=== PATIENT | female | born 1955 | race Caucasian/White ===

== ENCOUNTER 2017-03-31 02:41 | Emergency (ER) | payer BC ==
[2017-03-31] MEDS ORDERED: methylPREDNISolone Sodium Succinate 125 MG/2 ML SDV IVPUSH ONE (02:53)
--- NOTE | 2017-03-31 03:03 | EDM.PDOC ---
ED HPI GENERAL MEDICAL PROBLEM - General Chief Complaint: General Stated Complaint: swollen tongue Time Seen by Provider: 03/31/17 02:50 Source of Information: Reports: Patient History Limitations: Reports: No Limitations - History of Present Illness INITIAL COMMENTS - FREE TEXT/NARRATIVE: Patient presents today with itching, hives and a thick tongue. States started to note that her hands were very itchy earlier and started to break out in hives. About an hour ago, she woke up with a "thick tongue" and a hoarse voice. She denies any trouble swallowing. No trouble breathing. Took Benadryl at that time but symptoms seemed to be worsening. Has not experienced this before. Is finishing out the last day of a 10 day course of PCN. No different food intake. Onset: Gradual Duration: Hour(s): Location: Reports: Generalized Severity: Moderate Treatments MANAGER AVIATION: Reports: Other Medication(s) Other Treatments MANAGER AVIATION: Benadryl 50 mg an hour prior to presentation - Related Data Allergies Allergy/AdvReac Type Severity Reaction Status Date / Time No Known Allergies Allergy Verified 03/31/17 03:01 Home Meds: Home Meds Amoxicillin [Amoxil] 1 tab PO BID 03/31/17 [History] Past Medical History - Past Health History Medical/Surgical History: Denies Medical/Surgical History Social & Family History - Tobacco Use Smoking Status *Q: Current Every Day Smoker Years of Tobacco use: 40 - Alcohol Use Days Per Week of Alcohol Use: 0 ED ROS GENERAL - Review of Systems Review Of Systems: See Below Constitutional: Denies: Fever, Chills, Malaise, Weakness HEENT: Reports: Other (hoarseness; tongue thick/swollen) Respiratory: Denies: Shortness of Breath, Wheezing, Cough Cardiovascular: Denies: Chest Pain, Edema, Lightheadedness Endocrine: Denies: Fatigue GI/Abdominal: Denies: Abdominal Pain, Black Stool, Bloody Stool, Nausea, Vomiting : Reports: No Symptoms Musculoskeletal: Reports: No Symptoms Skin: Reports: Urticaria (hives scattered throughout) Neurological: Reports: No Symptoms ED EXAM, GENERAL - Physical Exam Exam: See Below Exam Limited By: No Limitations General Appearance: Alert, WD/WN, Mild Distress Ears: Normal External Exam, Normal TMs Nose: Normal Inspection, Normal Mucosa, No Blood Throat/Mouth: No Airway Compromise. No: Other (tongue mildly thickened) Head: Normocephalic Neck: Normal Inspection, Supple, Non-Tender Respiratory/Chest: No Respiratory Distress, Lungs Clear, Normal Breath Sounds Cardiovascular: Regular Rate, Rhythm Neurological: Alert, Oriented Psychiatric: Normal Affect, Normal Mood Skin Exam: Rash (hives noted on arms, chest and back) Course - Vital Signs Last Recorded V/S: Last Vital Signs Temp 97.2 F 03/31/17 02:45 Pulse 80 03/31/17 02:45 Resp 16 03/31/17 02:45 BP 152/85 H 03/31/17 02:45 Pulse Ox 95 03/31/17 02:45 - Orders/Labs/Meds Meds: Medications Discontinued Medications Generic Name Dose Route Start Last Admin Trade Name Freq PRN Reason Stop Dose Admin Methylprednisolone Sodium Succinate 125 mg 03/31/17 02:53 03/31/17 02:58 Solu-Medrol IVPUSH 03/31/17 02:54 125 mg NOW ONE Administration - Re-Assessments/Exams Free Text/Narrative Re-Assessment/Exam: 03/31/17 03:11 Patient feels like symptoms are improving. Can vocalize better now. Less itching. Departure - Departure Time of Disposition: 03:12 Disposition: Home, Self-Care 01 Condition: Fair Clinical Impression: Hives Angioedema Qualifiers: Encounter type: initial encounter Qualified Code(s): T78.3XXA - Angioneurotic edema, initial encounter - Discharge Information Forms: ED Department Discharge Additional Instructions: 1. Rest 2. Push fluids 3. Benadryl 50 mg every 4 hours for 24 hour total 4. Prednisone 20 mg- 2 tabs daily for 4 more days 5. Stop Amoxicillin 6. Return or call if any questions or concerns.
== END 2017-03-31 04:10 | disposition home or self-care (01) ==
LOC: CC.ED 02:41
DX: T78.3XXA Angioneurotic edema, initial encounter (principal); L50.9 Urticaria, unspecified; F17.210 Nicotine dependence, cigarettes, uncomplicated
CPT/HCPCS: 96374; 99283; J2930

== ENCOUNTER 2019-11-11 07:00 | Emergency (ER) | payer BC ==
--- NOTE | 2019-11-11 07:28 | EDM.PDOC ---
ED HPI GENERAL MEDICAL PROBLEM - General Chief Complaint: Abdominal Pain Stated Complaint: ?ULCER/PAIN ALL NIGHT Time Seen by Provider: 11/11/19 07:23 Source of Information: Reports: Patient History Limitations: Reports: No Limitations - History of Present Illness INITIAL COMMENTS - FREE TEXT/NARRATIVE: Started with midepigastric pain on Thursday, and has progressively become worse since. States that the pain kept her awake all night. Is supposed to take Nexium daily but doesn't always do it. Has history of ulcer in the past that has been associated with the meds that she is taking for her cancer. She states she has had some nausea. No vomiting or diarrhea. States that the pain will go all the way into her back. No fever with it. Describes the pain is in the area of the right lower lung base and she states that it is sharp and stabbing. I can't go through another night like last night again" She did have her neulastin shot earlier this week. Has never had a problem with it previously. Is supposed to be taking claritin but she forgot to take it. Has not been taking her gabapentin at this time as she "just hasn't thought about it." Onset: Gradual Location: Reports: Chest, Abdomen Quality: Reports: Burning Treatments CLEANING MATRON: Reports: Other Medication(s) (oxycodone, fentanyl, advil, tylenol) Right Upper Abdomen Pain Score (Numeric/FACES): 10 - Related Data Allergies Allergy/AdvReac Type Severity Reaction Status Date / Time amoxicillin Allergy Intermediate Swollen Verified 11/11/19 07:12 Tongue Home Meds: Home Meds Albuterol [Ventolin HFA] 2 puff INH BID PRN 08/06/19 [History] Gabapentin [Neurontin] 300 mg PO TID 08/06/19 [History] fentaNYL [Duragesic] 125 mcg TOP ASDIRECTED 11/09/19 [History] oxyCODONE HCl/Acetaminophen [Oxycodone-Acetaminophen 5-325] 1 tab PO Q4H PRN 11/09/19 [History] Acetaminophen [Tylenol Extra Strength] 500 mg PO Q6HR PRN 11/11/19 [History] Ibuprofen 200 mg PO Q6HR 11/11/19 [History] Past Medical History - Past Health History Medical/Surgical History: Denies Medical/Surgical History Oncologic (Cancer) History: Reports: Lung - Past Surgical History HEENT Surgical History: Reports: Other (See Below) Other HEENT Surgeries/Procedures: had surgery on her eyelids Female Surgical History: Reports: Hysterectomy Social & Family History - Tobacco Use Smoking Status *Q: Former Smoker - Living Situation & Occupation Living situation: Reports: , with Significant Other Occupation: Retired ED ROS GENERAL - Review of Systems Review Of Systems: See Below Constitutional: Denies: Fever, Chills, Weakness Respiratory: Reports: No Symptoms Cardiovascular: Reports: No Symptoms GI/Abdominal: Reports: Abdominal Pain. Denies: Black Stool, Bloody Stool, Nausea, Vomiting : Reports: No Symptoms Musculoskeletal: Reports: No Symptoms Skin: Reports: No Symptoms Neurological: Reports: No Symptoms ED EXAM, GI/ABD - Physical Exam Exam: See Below Exam Limited By: No Limitations General Appearance: Alert, WD/WN, Moderate Distress Ears: Normal External Exam, Normal Canal Nose: Normal Inspection Throat/Mouth: Normal Inspection, Normal Oropharynx Head: Atraumatic, Normocephalic Neck: Normal Inspection, Supple, Non-Tender, Full Range of Motion Respiratory/Chest: No Respiratory Distress, Lungs Clear, Normal Breath Sounds Cardiovascular: Regular Rate, Rhythm, No Edema GI/Abdominal Exam: Normal Bowel Sounds, Soft, Tender (midepigastric area with palpation.) Extremities: Normal Capillary Refill Neurological: Alert, Oriented Skin Exam: Warm, Dry, Intact Course - Vital Signs Last Recorded V/S: Last Vital Signs Temp 98.2 F 11/11/19 07:25 Pulse 103 H 11/11/19 07:25 Resp 16 11/11/19 07:25 BP 134/78 11/11/19 07:25 Pulse Ox 97 11/11/19 07:25 - Orders/Labs/Meds Labs: Laboratory Tests 11/11/19 11/11/19 11/11/19 Range/Units 07:28 07:45 09:45 WBC 51.4 H* (5.0-10.0) 10^3/uL RBC 3.38 L (4.00-5.50) 10^6/uL Hgb 11.4 L (12.0-16.0) g/dL Hct 34.5 L (37.0-47.0) % MCV 102.1 H (82.0-94.0) fL MCH 33.7 H (27.0-32.0) pg MCHC 33.0 (33.0-38.0) g/dL RDW Coeff of Lokes[place] 13.9 (11.0-15.0) % Plt Count 239 (150-400) 10^3/uL Add Manual Diff Yes Neutrophils % (Manual) 85 (35-85) % Band Neutrophils % 13 H (0-5) % Monocytes % (Manual) 1 L (2-12) % Eosinophils % (Manual) 1 (0-5) % Absolute Neutrophils 50.37 H (1.80-7.00) 10^3/uL Monocytes # (Manual) 0.51 (0.00-0.80) 10^3/uL Eosinophils # (Manual) 0.51 H (0.00-0.45) 10^3/uL Sodium 140 (136-145) mEq/L Potassium 3.5 (3.5-5.0) mEq/L Chloride 101 (98-106) mEq/L Carbon Dioxide 29 (21-32) mmol/L BUN 12 (7-18) mg/dL Creatinine 0.8 (0.6-1.0) mg/dL Est Cr Clr Drug Dosing 62.96 mL/min Estimated GFR (MDRD) > 60 (>=60) mL/min Glucose 110 H D (75-99) mg/dL Calcium 9.2 (8.4-10.1) mg/dL Urine Color Yellow (YELLOW) Urine Appearance Clear (CLEAR) Urine pH 8.5 H (4.5-8.0) Ur Specific [place] 1.020 (1.003-1.020) Urine Protein Negative (NEGATIVE) mg/dL Urine Glucose (UA) Negative (NEGATIVE) mg/dL Urine Ketones Trace H (NEGATIVE) mg/dL Urine Occult Blood Negative (NEGATIVE) Urine Nitrite Negative (NEGATIVE) Urine Bilirubin Negative (NEGATIVE) Urine Urobilinogen 0.2 (0.2-1.0) EU/dL Ur Leukocyte Esterase Trace H (NEGATIVE) Urine RBC Not seen (0-5) /HPF Urine WBC 0-5 (0-5) /HPF Ur Epithelial Cells Few H (NOT SEEN) /HPF Urine Mucus Occasional H (NOT SEEN) /HPF Meds: Medications Discontinued Medications Generic Name Dose Route Start Last Admin Trade Name Freq PRN Reason Stop Dose Admin Acetaminophen 650 mg 11/11/19 13:05 11/11/19 13:46 Tylenol PO 11/11/19 13:06 650 mg NOW ONE Administration Al Hydroxide/Mg Hydroxide 30 0 ml 11/11/19 07:27 11/11/19 07:33 ml/ Lidocaine HCl 15 ml PO 11/11/19 07:28 45 ml ONETIME ONE Administration Fentanyl 50 mcg 11/11/19 09:43 11/11/19 09:49 Sublimaze IVPUSH 11/11/19 09:44 50 mcg ONETIME ONE Administration Fentanyl 50 mcg 11/11/19 10:57 11/11/19 11:19 Sublimaze IVPUSH 11/11/19 10:58 50 mcg ONETIME ONE Administration Sodium Chloride 1,000 mls @ 999 mls/hr 11/11/19 10:10 11/11/19 10:19 Normal Saline IV 11/11/19 11:10 999 mls/hr .BOLUS ONE Administration Iopamidol 100 ml 11/11/19 13:16 11/11/19 13:52 Isovue-370 (76%) IVPUSH 11/11/19 13:17 100 ml ONETIME ONE Administration Ketorolac Tromethamine 30 mg 11/11/19 12:51 11/11/19 12:56 Toradol IVPUSH 11/11/19 12:52 30 mg ONETIME ONE Administration Loratadine 10 mg 11/11/19 13:07 11/11/19 13:46 Claritin PO 11/11/19 13:08 10 mg ONETIME ONE Administration Morphine Sulfate 4 mg 11/11/19 08:38 11/11/19 08:41 Morphine IVPUSH 11/11/19 08:39 4 mg ONETIME ONE Administration Ondansetron HCl 8 mg 11/11/19 08:45 11/11/19 08:47 Zofran IVPUSH 8 mg Q6H PRN Administration Nausea Pantoprazole Sodium 40 mg 11/11/19 07:30 11/11/19 07:42 Protonix Iv IVPUSH 40 mg Q24H JARROD Administration Sucralfate 1 gm 11/11/19 07:28 11/11/19 07:43 Carafate PO 11/11/19 07:29 1 gm ONETIME ONE Administration - Re-Assessments/Exams Free Text/Narrative Re-Assessment/Exam: 11/11/19 1245 Pt has had no relief from the extra pain meds that have been given to her. She still has significant pain. I did talk to Dr. Fowler and he suggested that I do a CT for PE rule out. will try dose of IV toradol as she feels that she has had some relief from that in the past. 11/11/[address]. Fowler and that pain continues to not be controlled and CT is negative for PE. Discussed that the CT does show progression of the cancer. tumor and effect is on the left rib and he feels that the pain is referred to the right and may be the cause of the pain. 11/11/19 1430 Discussed the results with Yasmin and . Will transfer to [facility] for pain control and further workup. PT voices understanding. Will wait until notified if room available. Discussed risk of not transferring to include unable to control pain and pain getting worse. risk of transfer by private car would include uncontrolled pain enroute, and chance of MVC. benefit of staying would be close to home and benefit of transfer would include specialist and hopefully pain control and symptom relief. Pt and agree to transfer by private car. 11/11/19 16:30transfer to [facility] room 591 per private car with with Dr. Franklin and Janeth accepting physician. 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, Uncontrolled pain - Discharge Information *PRESCRIPTION DRUG MONITORING PROGRAM REVIEWED*: Not Applicable *COPY OF PRESCRIPTION DRUG MONITORING REPORT IN PATIENT MARY ALICE: Not Applicable Referrals: Panfilo Morgan MD [Primary Care Provider] - Forms: ED Department Discharge Additional Instructions: Go to [facility] for admission - Problem List & Annotations (1) Lung cancer metastatic to bone SNOMED Code(s): 79685079 Code(s): C34.90 - MALIGNANT NEOPLASM OF UNSP PART OF UNSP BRONCHUS OR LUNG; C79.51 - SECONDARY MALIGNANT NEOPLASM OF BONE Status: Acute Priority: High (2) Uncontrolled pain SNOMED Code(s): 41040600427953860 Code(s): R52 - PAIN, UNSPECIFIED Status: Acute Priority: High - Problem List Review Problem List Initiated/Reviewed/Updated: Yes
[2019-11-11] MEDS: Alum Hydrox/Mag Hydrox/Simeth 30 ML, Lidocaine 2% 15 ML PO ONE ×2 (07:33)
[2019-11-11] MEDS: Pantoprazole 40 MG Vial IVPUSH SCH (07:42)
[2019-11-11] MEDS: Sucralfate 1 GM Tab PO ONE (07:43)
[2019-11-11 07:52] LABS: CHLORIDE,CL 101 mEq/L (98-106); SODIUM,NA 140 mEq/L (136-145)
[2019-11-11] MEDS: Morphine 4 MG/ML VIAL IVPUSH ONE (08:41)
[2019-11-11] MEDS: Ondansetron 4 MG/2 ML SDV IVPUSH PRN (08:47)
[2019-11-11] MEDS: fentaNYL 100 MCG/2 ML SDV IVPUSH ONE ×2 (09:49→11:19)
[2019-11-11] MEDS: Sodium Chloride 0.9% 1,000 ML IV ONE (10:19)
[2019-11-11] MEDS: Ketorolac 30 MG/ML SDV IVPUSH ONE (12:56)
[2019-11-11] MEDS: Acetaminophen 325 MG Tab PO ONE (13:46)
[2019-11-11] MEDS: Loratadine 10 MG Tab PO ONE (13:46)
[2019-11-11] MEDS: Iopamidol 755 Mg/ML 100 ML Bottle IVPUSH ONE (13:52)
== END 2019-11-11 15:30 ==
LOC: CC.ED 07:00
DX: C34.11 Malignant neoplasm of upper lobe, right bronchus or lung (principal); C79.51 Secondary malignant neoplasm of bone; Z88.1 Allergy status to other antibiotic agents; Z79.899 Other long term (current) drug therapy; Z87.891 Personal history of nicotine dependence
CPT/HCPCS: 36415; 71046; 71275; 80048; 81001; 85025; 96374; 96375; 96376; 99284-25; A9270-GY; C9113; J1885; J2270; J2405; J3010; J7030; Q9967

== ENCOUNTER 2020-08-13 10:03 | Emergency (ER) | payer BC ==
[2020-08-13] MEDS ORDERED: Ketorolac 30 MG/ML SDV IVPUSH ONE (10:43)
--- NOTE | 2020-08-13 10:56 | EDM.PDOC ---
ED HPI GENERAL MEDICAL PROBLEM - General Chief Complaint: Flank Pain Stated Complaint: FLANK PAIN/RT SHLDR PAIN Time Seen by Provider: 08/13/20 10:10 Source of Information: Reports: Patient History Limitations: Reports: No Limitations - History of Present Illness INITIAL COMMENTS - FREE TEXT/NARRATIVE: This patient is a 64 year old female that presents to the ER. Patient reports history of small cell lung cancer, metastatic to liver, rib x1. Patient reports she had radiation to the rib and it resolved. She reports starting chemo Thursday for the 1st time. She reports that she will get chemo every 3 weeks. She reports starting new cancer drugs. Patient reports that her cancer doctor manages her pain medications. She reports taking Oxycodone. She reports she can take 2 pil ls, but only took 1 last night because she gets loopy if she takes more. The patient reports that she has been having pain chronically to the right flank, that she says is "referred" to the right shoulder. Patient reports that this pain is her typical chronic cancer pain. She reports that she has pain in the liver and this feels just like that. She reports the reason why she came in today is because the pain is worse and she feels like the pain medication is not helping as much as it should. The patient denies any injuries or falls. She denies headache, dizziness, new nausea, vomiting, diarrhea, fever, cough, congestion, drainage, shortness of breath, urinary changes. She reports constipation. She reports right flank lower right back pain with referred right shoulder pain worse since last night. Onset Date: 08/12/20 Duration: Chronic, Getting Worse Severity: Moderate Improves with: Reports: None Worsens with: Reports: None Associated Symptoms: Reports: Loss of Appetite. 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 (see below) (Fentanyl, Oxycodone) Right Flank Pain Score (Numeric/FACES): 9 - Related Data Allergies Allergy/AdvReac Type Severity Reaction Status Date / Time amoxicillin Allergy Intermediate Swollen Verified 08/13/20 10:19 Tongue Home Meds: Home Meds fentaNYL [Duragesic] 175 mcg TOP ASDIRECTED 11/09/19 [History] Acetaminophen [Tylenol Extra Strength] 500 mg PO Q6HR PRN 11/11/19 [History] Ibuprofen 200 mg PO Q6HR 11/11/19 [History] Ondansetron [Zofran] 4 mg PO Q6H 08/08/20 [History] Pregabalin [Lyrica] 50 mg PO BID 08/08/20 [History] oxyCODONE HCl/Acetaminophen [Oxycodone-Acetaminophen 10-300] 1 tab PO Q4HR PRN 08/08/20 [History] predniSONE [Prednisone] 1 tab PO DAILY 08/08/20 [History] Past Medical History - Past Health History Medical/Surgical History: Denies Medical/Surgical History HEENT History: Reports: None Respiratory History: Reports: Other (See Below) Other Respiratory History: Lung cancer Oncologic (Cancer) History: Reports: Lung - Past Surgical History HEENT Surgical History: Reports: Other (See Below) Other HEENT Surgeries/Procedures: had surgery on her eyelids Female Surgical History: Reports: Hysterectomy Social & Family History - Family History Family Medical History: No Pertinent Family History - Caffeine Use Caffeine Use: Reports: None - Living Situation & Occupation Living situation: Reports: , with Significant Other Occupation: Retired ED ROS GENERAL - Review of Systems Review Of Systems: See Below Constitutional: Reports: No Symptoms HEENT: Reports: No Symptoms Respiratory: Reports: No Symptoms Cardiovascular: Reports: No Symptoms Endocrine: Reports: No Symptoms GI/Abdominal: Reports: Abdominal Pain (right latera upper to flank), Constipation, Other (Right flank, right lateral upper.). Denies: Diarrhea, Nausea, Vomiting : Reports: Flank Pain (right). Denies: Discharge, Dysuria, Frequency, Hematuria, Incontinence, Urgency, Urinary Retention Musculoskeletal: Reports: Shoulder Pain (right) Skin: Reports: No Symptoms Neurological: Reports: No Symptoms Psychiatric: Reports: No Symptoms Hematologic/Lymphatic: Reports: No Symptoms Immunologic: Reports: No Symptoms ED EXAM, GI/ABD - Physical Exam Exam: See Below Exam Limited By: No Limitations General Appearance: Alert, WD/WN, No Apparent Distress Eyes: Bilateral: Normal Appearance Ears: Normal External Exam, Normal Canal, Hearing Grossly Normal, Normal TMs Nose: Normal Inspection, Normal Mucosa, No Blood Throat/Mouth: Normal Inspection, Normal Lips, Normal Teeth, Normal Gums, Normal Oropharynx, Normal Voice, No Airway Compromise Head: Atraumatic, Normocephalic Neck: Normal Inspection, Supple, Non-Tender, Full Range of Motion Respiratory/Chest: No Respiratory Distress, Lungs Clear, Normal Breath Sounds, No Accessory Muscle Use, Chest Non-Tender Cardiovascular: Normal Peripheral Pulses, Regular Rate, Rhythm, No Edema, No Gallop, No JVD, No Murmur, No Rub GI/Abdominal Exam: Normal Bowel Sounds, Soft, Pelvis Stable, Distended (mild), Tender (RUQ/LATERAL) (Female) Exam: Deferred Rectal (Female) Exam: Deferred Back Exam: Normal Inspection, Full Range of Motion, CVA Tenderness (R), Paraspinal Tenderness. No: CVA Tenderness (L), Decreased Range of Motion, Muscle Spasm, Vertebral Tenderness Extremities: Normal Inspection, Normal Range of Motion, Non-Tender, No Pedal Edema, Normal Capillary Refill Neurological: Alert, Oriented, Normal Cognition, Normal Gait, No Motor/Sensory Deficits Psychiatric: Normal Affect, Normal Mood Skin Exam: Warm, Dry, Intact, Normal Color, No Rash Course - Vital Signs Last Recorded V/S: Last Vital Signs Temp 97.1 F 08/13/20 10:25 Pulse 122 H 08/13/20 10:25 Resp 20 08/13/20 10:25 BP 155/95 H 08/13/20 10:25 Pulse Ox 91 L 08/13/20 10:25 - Orders/Labs/Meds Orders: Active Orders 24 hr Category Date Time Status EKG Documentation Completion [RC] STAT Care 08/13/20 10:43 Active Chest 2V [CR] Stat Exams 08/13/20 11:07 Taken CULTURE BLOOD [BC] Stat Lab 08/13/20 11:51 Received CULTURE BLOOD [BC] Stat Lab 08/13/20 11:51 Received INR,PT,PROTHROMBIN TIME [COAG] Stat Lab 08/13/20 10:50 Received Sodium Chloride 0.9% [Normal Saline] 500 ml Med 08/13/20 12:15 Active IV .BOLUS Blood Culture x2 Reflex Set [OM.PC] Stat Oth 08/13/20 11:07 Ordered Medication Orders Sodium Chloride (Normal Saline) 500 mls @ 1,000 mls/hr IV .BOLUS JARROD Last Admin: 08/13/20 12:33 Dose: 1,000 mls/hr Documented by: AIRAM Labs: Laboratory Tests 08/13/20 08/13/20 08/13/20 Range/Units 10:45 10:45 10:50 WBC 33.4 H* (5.0-10.0) 10^3/uL RBC 2.90 L (4.00-5.50) 10^6/uL Hgb 10.0 L (12.0-16.0) g/dL Hct 29.8 L (37.0-47.0) % MCV 102.8 H (82.0-94.0) fL MCH 34.5 H (27.0-32.0) pg MCHC 33.6 (33.0-38.0) g/dL RDW Coeff of Lokesh 14.5 (11.0-15.0) % Plt Count 191 (150-400) 10^3/uL Add Manual Diff Yes Neutrophils % (Manual) 87 H (35-85) % Band Neutrophils % 6 H (0-5) % Lymphocytes % (Manual) 3 L (21-55) % Monocytes % (Manual) 3 (2-12) % Eosinophils % (Manual) 1 (0-5) % Sodium (136-145) mEq/L Potassium (3.5-5.0) mEq/L Chloride (98-106) mEq/L Carbon Dioxide (21-32) mmol/L BUN (7-18) mg/dL Creatinine (0.6-1.0) mg/dL Est Cr Clr Drug Dosing mL/min Estimated GFR (MDRD) (>=60) mL/min Glucose (75-99) mg/dL Lactic Acid 1.3 (0.4-2.0) mmol/L Calcium (8.4-10.1) mg/dL Total Bilirubin (0.0-1.0) mg/dL AST (15-37) U/L ALT (12-78) U/L Alkaline Phosphatase (46-116) U/L Lactate Dehydrogenase (100-190) U/L Creatine Kinase (21-215) U/L Troponin I (0.00-0.06) ng/mL C-Reactive Protein 2.9 H (0.2-0.8) mg/dL Total Protein (6.4-8.2) g/dL Albumin (3.4-5.0) g/dL Amylase (25-115) U/L Lipase (73-393) U/L Urine Color (YELLOW) Urine Appearance (CLEAR) Urine pH (4.5-8.0) Ur Specific [place] (1.003-1.020) Urine Protein (NEGATIVE) mg/dL Urine Glucose (UA) (NEGATIVE) mg/dL Urine Ketones (NEGATIVE) mg/dL Urine Occult Blood (NEGATIVE) Urine Nitrite (NEGATIVE) Urine Bilirubin (NEGATIVE) Urine Urobilinogen (0.2-1.0) EU/dL Ur Leukocyte Esterase (NEGATIVE) Urine RBC (0-5) /HPF Urine WBC (0-5) /HPF Ur Squamous Epith Cells (NOT SEEN) /HPF 08/13/20 08/13/20 Range/Units 10:50 10:54 WBC (5.0-10.0) 10^3/uL RBC (4.00-5.50) 10^6/uL Hgb (12.0-16.0) g/dL Hct (37.0-47.0) % MCV (82.0-94.0) fL MCH (27.0-32.0) pg MCHC (33.0-38.0) g/dL RDW Coeff of [place]okesh (11.0-15.0) % Plt Count (150-400) 10^3/uL Add Manual Diff Neutrophils % (Manual) (35-85) % Band Neutrophils % (0-5) % Lymphocytes % (Manual) (21-55) % Monocytes % (Manual) (2-12) % Eosinophils % (Manual) (0-5) % Sodium 132 L (136-145) mEq/L Potassium 4.5 (3.5-5.0) mEq/L Chloride 95 L (98-106) mEq/L Carbon Dioxide 28 (21-32) mmol/L BUN 18 (7-18) mg/dL Creatinine 1.3 H (0.6-1.0) mg/dL Est Cr Clr Drug Dosing 38.56 mL/min Estimated GFR (MDRD) 42 L (>=60) mL/min Glucose 143 H D (75-99) mg/dL Lactic Acid (0.4-2.0) mmol/L Calcium 11.0 H (8.4-10.1) mg/dL Total Bilirubin 0.3 (0.0-1.0) mg/dL AST 36 (15-37) U/L ALT 69 (12-78) U/L Alkaline Phosphatase 284 H (46-116) U/L Lactate Dehydrogenase 269 H (100-190) U/L Creatine Kinase 128 (21-215) U/L Troponin I < 0.017 (0.00-0.06) ng/mL C-Reactive Protein (0.2-0.8) mg/dL Total Protein 6.6 (6.4-8.2) g/dL Albumin 3.2 L (3.4-5.0) g/dL Amylase 25 (25-115) U/L Lipase 46 L (73-393) U/L Urine Color Yellow (YELLOW) Urine Appearance Slightly cloudy (CLEAR) Urine pH 5.5 (4.5-8.0) Ur Specific [place] 1.025 H (1.003-1.020) Urine Protein 30 H (NEGATIVE) mg/dL Urine Glucose (UA) Negative (NEGATIVE) mg/dL Urine Ketones Negative (NEGATIVE) mg/dL Urine Occult Blood Negative (NEGATIVE) Urine Nitrite Negative (NEGATIVE) Urine Bilirubin Negative (NEGATIVE) Urine Urobilinogen 0.2 (0.2-1.0) EU/dL Ur Leukocyte Esterase Negative (NEGATIVE) Urine RBC 0-5 (0-5) /HPF Urine WBC 0-5 (0-5) /HPF Ur Squamous Epith Cells Few H (NOT SEEN) /HPF Meds: Medications Generic Name Dose Route Start Last Admin Trade Name Freq PRN Reason Stop Dose Admin Sodium Chloride 500 mls @ 1,000 mls/hr 08/13/20 12:15 08/13/20 12:33 Normal Saline IV 1,000 mls/hr .BOLUS JARROD Administration Discontinued Medications Generic Name Dose Route Start Last Admin Trade Name Freq PRN Reason Stop Dose Admin Hydromorphone HCl 0.5 mg 08/13/20 12:06 Hydromorphone 1 Mg/Ml Syringe IVPUSH 08/13/20 12:07 ONETIME ONE Ketorolac Tromethamine 30 mg 08/13/20 10:43 08/13/20 10:45 Ketorolac 30 Mg/Ml Sdv IVPUSH 08/13/20 10:44 30 mg ONETIME ONE Administration Ondansetron HCl 4 mg 08/13/20 12:06 08/13/20 12:27 Ondansetron 4 Mg/2 Ml Sdv IVPUSH 08/13/20 12:07 4 mg NOW STA Administration - Radiology Interpretation Free Text/Narrative:: CXR: no acute findings - Re-Assessments/Exams Free Text/Narrative Re-Assessment/Exam: 08/13/20 12:05 Labs reviewed. Discussed with patient. Patient reports she got Udenyca on 08/08/20 and it makes her WBC elevate. Patient denies butts, dizziness, n, v, d, f, chest pain, shortness of breath, cough, urinary changes. Patient CR is 1.3, will give NS for that. The paitent reports her pain in shoulder is resolved to 0/10. Patient reports her right flank pain has improved, but still painful 6/10. Will give her Dilaudid IV. I have also called her oncologist Dr. Fowler at [facility], they will call me back. 08/13/20 12:34 I spoke to oncologist survey questionnaire designer about patient. She reports the elevation in wbc is due to injection from 08/08. Discussed patient case. Will discharge home. No changes for this patient. Departure - Departure Time of Disposition: 12:34 Disposition: Home, Self-Care 01 Condition: Good Clinical Impression: Flank pain, Lung cancer metastatic to bone - Discharge Information *PRESCRIPTION DRUG MONITORING PROGRAM REVIEWED*: Not Applicable *COPY OF PRESCRIPTION DRUG MONITORING REPORT IN PATIENT MARY ALICE: Not Applicable Instructions: Flank Pain, Adult, [id number], Pain Medicine Instructions, [id number], Lung Cancer Referrals: Panfilo Morgan MD [Primary Care Provider] - Forms: ED Department Discharge Additional Instructions: Followup with your primary care provider and your oncologist Return to the ER for worsening of condition or any emergent concerns such as fever, shortness of breath. Take your pain medication as prescribed Sepsis Event Note (ED) - Evaluation Sepsis Screening Result: No Definite Risk - Focused Exam Vital Signs: Vital Signs Temp Pulse Resp BP Pulse Ox 08/13/20 10:25 97.1 F 122 H 20 155/95 H 91 L - My Orders Last 24 Hours: My Active Orders 08/13/20 10:43 EKG Documentation Completion [RC] STAT 08/13/20 10:50 INR,PT,PROTHROMBIN TIME [COAG] Stat 08/13/20 11:07 Chest 2V [CR] Stat Blood Culture x2 Reflex Set [OM.PC] Stat 08/13/20 11:51 CULTURE BLOOD [BC] Stat CULTURE BLOOD [BC] Stat 08/13/20 12:15 Sodium Chloride 0.9% [Normal Saline] 500 ml IV .BOLUS - Assessment/Plan Last 24 Hours: My Active Orders 08/13/20 10:43 EKG Documentation Completion [RC] STAT 08/13/20 10:50 INR,PT,PROTHROMBIN TIME [COAG] Stat 08/13/20 11:07 Chest 2V [CR] Stat Blood Culture x2 Reflex Set [OM.PC] Stat 08/13/20 11:51 CULTURE BLOOD [BC] Stat CULTURE BLOOD [BC] Stat 08/13/20 12:15 Sodium Chloride 0.9% [Normal Saline] 500 ml IV .BOLUS Plan: PLEASE SEE RN NOTE FOR PFSH
[2020-08-13 11:09] LABS: CHLORIDE,CL 95 mEq/L (98-106); SODIUM,NA 132 mEq/L (136-145)
[2020-08-13] MEDS ORDERED: Ondansetron 4 MG/2 ML SDV IVPUSH STA (12:06)
[2020-08-13] MEDS ORDERED: HYDROmorphone 1 MG/ML Syringe IVPUSH ONE (12:06)
[2020-08-13] MEDS ORDERED: Sodium Chloride 0.9% 500 ML IV SCH (12:15)
[2020-08-13] MEDS ORDERED: Acetaminophen/oxyCODONE 325-5 MG Tab PO ONE (12:45)
== END 2020-08-13 13:20 | disposition home or self-care (01) ==
LOC: CC.ED 10:03
DX: R10.9 Unspecified abdominal pain (principal); C34.90 Malignant neoplasm of unspecified part of unspecified bronchus or lung; C79.51 Secondary malignant neoplasm of bone; Z88.0 Allergy status to penicillin; Z79.899 Other long term (current) drug therapy
CPT/HCPCS: 36415; 71046; 80053; 81001; 82150; 82550; 83605; 83615; 83690; 84484; 85025; 85610; 86140; 87040; 93005; 96374; 96375; 99284-25; A9270-GY; J1170; J1885; J2405; J7040

== ENCOUNTER 2020-08-23 17:20 | Emergency (ER) | payer BC ==
--- NOTE | 2020-08-23 17:43 | EDM.PDOC ---
ED HPI GENERAL MEDICAL PROBLEM - General Chief Complaint: General Stated Complaint: pain Time Seen by Provider: 08/23/20 17:35 Source of Information: Reports: Patient History Limitations: Reports: No Limitations - History of Present Illness INITIAL COMMENTS - FREE TEXT/NARRATIVE: States that she got behind on her pain meds and now she has pain that she can't control. She is taking her oxycontin every 4 hours and then taking ibuprofen and her medical marijuana in between so that she is getting something every 2 hours. She missed a dose earlier today so now she can't get controlled again. She is having pain to the right shoulder which she states is referred pain from the liver mets. Then pain is down the right side of body and into the back and hip where she also has mets to. She has not been feeling well so has not been eat ing or drinking today so feels like she is getting dehydrated. In the past she has done well with a dose of IV toradol and then fluids and gets the pain back in control and then she will get back on track with her pain meds. She has recently started to take medical marajuana gtts and they are still trying to figure out the dose that she will need for that. Currently she is not vomiting. Onset: Gradual Onset Date: 08/23/20 Location: Reports: Back, Pelvis, Upper Extremity, Right Back Pain Score (Numeric/FACES): 8 - Related Data Allergies Allergy/AdvReac Type Severity Reaction Status Date / Time amoxicillin Allergy Intermediate Swollen Verified 08/23/20 17:21 Tongue Home Meds: Home Meds fentaNYL [Duragesic] 175 mcg TOP ASDIRECTED 11/09/19 [History] Acetaminophen [Tylenol Extra Strength] 500 mg PO Q6HR PRN 11/11/19 [History] Ibuprofen 200 mg PO Q6HR 11/11/19 [History] Ondansetron [Zofran] 4 mg PO Q6H 08/08/20 [History] Pregabalin [Lyrica] 50 mg PO BID 08/08/20 [History] predniSONE [Prednisone] 1 tab PO DAILY 08/08/20 [History] oxyCODONE HCl/Acetaminophen [Oxycodone-Acetaminophen 5-325] 1 - 2 tab PO Q4HR PRN 08/23/20 [History] Past Medical History - Past Health History Medical/Surgical History: Denies Medical/Surgical History HEENT History: Reports: None Respiratory History: Reports: Other (See Below) Other Respiratory History: Lung cancer Oncologic (Cancer) History: Reports: Lung - Past Surgical History HEENT Surgical History: Reports: Other (See Below) Other HEENT Surgeries/Procedures: had surgery on her eyelids Respiratory Surgical History: Reports: Lung Biopsies Female Surgical History: Reports: Hysterectomy Social & Family History - Family History Family Medical History: No Pertinent Family History - Tobacco Use Tobacco Use Status *Q: Former Tobacco User Used Tobacco, but Quit: Yes Month/Year Tobacco Last Used: 2018 - Caffeine Use Caffeine Use: Reports: None - Recreational Drug Use Recreational Drug Use: No - Living Situation & Occupation Living situation: Reports: , with Significant Other Occupation: Retired ED ROS GENERAL - Review of Systems Review Of Systems: See Below Constitutional: Denies: Fever, Chills HEENT: Reports: No Symptoms Respiratory: Reports: No Symptoms Cardiovascular: Reports: No Symptoms GI/Abdominal: Reports: Decreased Appetite Musculoskeletal: Reports: Shoulder Pain, Back Pain Skin: Reports: No Symptoms Neurological: Reports: No Symptoms ED EXAM, GENERAL - Physical Exam Exam: See Below Exam Limited By: No Limitations General Appearance: Alert, WD/WN, Moderate Distress Ears: Normal External Exam, Normal Canal, Normal TMs Throat/Mouth: Normal Oropharynx, Normal Voice Neck: Normal Inspection, Supple, Non-Tender, Full Range of Motion Respiratory/Chest: No Respiratory Distress, Decreased Breath Sounds Cardiovascular: Normal Peripheral Pulses, Regular Rate, Rhythm, No Edema GI/Abdominal: Normal Bowel Sounds, Soft, Non-Tender Extremities: Normal Inspection, Other (tender with palpation to the right shoulder, back, right flank area, and the right posterior pelvis with palpation. NO redness noted.) Neurological: Alert, Oriented Skin Exam: Warm, Dry, Intact Course - Vital Signs Last Recorded V/S: Last Vital Signs Temp 98.0 F 08/23/20 17:24 Pulse 130 H 08/23/20 17:24 Resp 18 08/23/20 17:24 BP 145/92 H 08/23/20 17:24 Pulse Ox 93 L 08/23/20 17:24 - Orders/Labs/Meds Meds: Medications Discontinued Medications Generic Name Dose Route Start Last Admin Trade Name Freq PRN Reason Stop Dose Admin Sodium Chloride 1,000 mls @ 999 mls/hr 08/23/20 17:49 08/23/20 17:54 Normal Saline IV 08/23/20 18:49 Not Given .BOLUS ONE Sodium Chloride 1,000 mls @ 999 mls/hr 08/23/20 18:00 08/23/20 17:55 Normal Saline IV 100 mls/hr ASDIRECTED JARROD Administration Ketorolac Tromethamine 30 mg 08/23/20 17:48 08/23/20 17:54 Ketorolac 30 Mg/Ml Sdv IVPUSH 08/23/20 17:49 30 mg ONETIME ONE Administration - Re-Assessments/Exams Free Text/Narrative Re-Assessment/Exam: 08/23/20 18:01 Discussed that will give IV toradol and liter of fluids as her mucus membranes are getting dry and to avoid dehydration until her pain is under control. 08/03/20 1900 She feels better after the TOradol and fluids. Will be discharged. Departure - Departure Time of Disposition: 19:15 Disposition: Home, Self-Care 01 Condition: Fair Clinical Impression: Lung cancer metastatic to bone, Uncontrolled pain, Flank pain - Discharge Information *PRESCRIPTION DRUG MONITORING PROGRAM REVIEWED*: Not Applicable *COPY OF PRESCRIPTION DRUG MONITORING REPORT IN PATIENT MARY ALICE: Not Applicable Referrals: Panfilo Morgan MD [Primary Care Provider] - Forms: ED Department Discharge Additional Instructions: go back to your normal routine of pain meds. Use your antinausea meds at home as needed push fluids as much as possible when you get home recheck if not getting better. Sepsis Event Note (ED) - Evaluation Sepsis Screening Result: No Definite Risk - Problem List & Annotations (1) Lung cancer metastatic to bone SNOMED Code(s): 27393211 Code(s): C34.90 - MALIGNANT NEOPLASM OF UNSP PART OF UNSP BRONCHUS OR LUNG; C79.51 - SECONDARY MALIGNANT NEOPLASM OF BONE Status: Acute Priority: High (2) Uncontrolled pain SNOMED Code(s): 70741680115075339 Code(s): R52 - PAIN, UNSPECIFIED Status: Acute Priority: High (3) Flank pain SNOMED Code(s): 832863207 Code(s): R10.9 - UNSPECIFIED ABDOMINAL PAIN Status: Acute Priority: Medium - Problem List Review Problem List Initiated/Reviewed/Updated: Yes
[2020-08-23] MEDS ORDERED: Ketorolac 30 MG/ML SDV IVPUSH ONE (17:48)
[2020-08-23] MEDS ORDERED: Sodium Chloride 0.9% 1,000 ML IV ONE (17:49)
[2020-08-23] MEDS ORDERED: Sodium Chloride 0.9% 1,000 ML IV SCH (18:00)
== END 2020-08-23 19:15 | disposition home or self-care (01) ==
LOC: CC.ED 17:20
DX: C34.90 Malignant neoplasm of unspecified part of unspecified bronchus or lung (principal); C79.51 Secondary malignant neoplasm of bone; Z88.0 Allergy status to penicillin; Z87.891 Personal history of nicotine dependence
CPT/HCPCS: 96374; 99283-25; J1885; J7030

== ENCOUNTER 2020-08-29 15:59 | Inpatient (IN) | payer BC ==
--- NOTE | 2020-08-29 17:37 | EDM.PDOC ---
ED HPI GENERAL MEDICAL PROBLEM - General Chief Complaint: General Stated Complaint: ILL Time Seen by Provider: 08/29/20 16:20 Source of Information: Reports: Patient, Family History Limitations: Reports: No Limitations - History of Present Illness INITIAL COMMENTS - FREE TEXT/NARRATIVE: Georgina is a 64 year old female who is seen in the ER this afternoon per recommendations by [facility]. Patient was here for IV fluids per outpatient orders this afternoon. Was having severe pain in her right shoulder and has had improvement with Toradol in the past. Was given an injection and had improvement of the pain. [facility] was contacted prior to receiving that order and due to her calcium levels, advised to be seen in the ER and evaluated for this. Patient had labs done on Thursday, Zometa was given as well as her chemo injection yesterday at [facility]. She had repeat levels this am and her calcium was still high. relates that she has had 2 injections with the new chemo. Has had increasing pain in her right shoulder over the last few months, meds have been adjusted multiple times. Has had considerable work up for this. They now feel her pain is referred pain from her liver as she has lesions there now as well. NSAIDs have worked better for her than narcotics. She had been taking ibuprofen and was recently advised to use Aleve. Yesterday, staff at [facility] had noted increased swelling in her legs so felt further investigation of that should be done. Was found to have DVT in her right leg so was started on Eliquis. states now advised to not use NSAIDs. reports she eats very little. Is more confused now at times. Has not had a BM for a week or so. She has tried Miralax before without much relief. Is currently on Senna and Lactulose. Patient has mild cramping in her lower abdomen but "nothing new". Denies feeling bloated. Duration: Chronic, Intermittent Location: Reports: Upper Extremity, Right Quality: Reports: Throbbing Severity: Severe Improves with: Reports: Medication Associated Symptoms: Reports: Confusion, Loss of Appetite, Malaise, Nausea/Vomiting, Shortness of Breath, Weakness. Denies: Chest Pain, Cough, Fever/Chills Treatments HOSE TENDER: Reports: Acetaminophen, NSAIDS Right Shoulder Pain Score (Numeric/FACES): 9 - Related Data Allergies Allergy/AdvReac Type Severity Reaction Status Date / Time amoxicillin Allergy Intermediate Swollen Verified 08/29/20 14:11 Tongue Home Meds: Home Meds fentaNYL [Duragesic] 175 mcg TOP Q3D 11/09/19 [History] Acetaminophen [Tylenol Extra Strength] 1,000 mg PO BID PRN 11/11/19 [History] Ondansetron [Zofran] 4 mg PO 0700,1500 08/08/20 [History] Pregabalin [Lyrica] 50 mg PO TID 08/08/20 [History] predniSONE [Prednisone] 1 tab PO 0900 08/08/20 [History] oxyCODONE HCl/Acetaminophen [Oxycodone-Acetaminophen 5-325] 2 tab PO Q4HR 08/23/20 [History] Albuterol Sulfate [Albuterol Sulfate HFA] 2 inh INH Q4H PRN 08/29/20 [History] Apixaban [Eliquis] 10 mg PO BID 08/29/20 [History] Docusate Sodium/Sennosides [Senna Plus] 3 tab PO BID 08/29/20 [History] Furosemide 20 mg PO DAILY 08/29/20 [History] LORazepam [Ativan] 0.5 mg PO DAILY PRN 08/29/20 [History] Lactulose 10 gm PO BID PRN 08/29/20 [History] Loratadine [Claritin] 10 mg PO 0900 08/29/20 [History] Naloxone [Narcan] 1 spray SHWETA ASDIRECTED PRN 08/29/20 [History] Prochlorperazine Maleate [Compazine] 10 mg PO QID PRN 08/29/20 [History] dronabinoL [Dronabinol] 10 mg PO 0900,1900 08/29/20 [History] Past Medical History - Past Health History Medical/Surgical History: Denies Medical/Surgical History HEENT History: Reports: None Respiratory History: Reports: Other (See Below) Other Respiratory History: Lung cancer Oncologic (Cancer) History: Reports: Lung - Past Surgical History HEENT Surgical History: Reports: Other (See Below) Other HEENT Surgeries/Procedures: had surgery on her eyelids Respiratory Surgical History: Reports: Lung Biopsies Female Surgical History: Reports: Hysterectomy Social & Family History - Family History Family Medical History: No Pertinent Family History - Tobacco Use Tobacco Use Status *Q: Former Tobacco User Used Tobacco, but Quit: Yes Month/Year Tobacco Last Used: 4 y.o - Caffeine Use Caffeine Use: Reports: None - Recreational Drug Use Recreational Drug Use: No - Living Situation & Occupation Living situation: Reports: , with Significant Other Occupation: Retired ED ROS GENERAL - Review of Systems Review Of Systems: See Below Constitutional: Reports: Malaise, Weakness, Fatigue, Decreased Appetite. Denies: Fever, Chills HEENT: Denies: Ear Pain, Sinus Problem, Throat Pain, Vertigo Respiratory: Reports: Shortness of Breath. Denies: Cough Cardiovascular: Reports: Edema, Lightheadedness. Denies: Chest Pain Endocrine: Reports: Fatigue GI/Abdominal: Reports: Abdominal Pain, Constipation, Nausea. Denies: Vomiting : Reports: No Symptoms Musculoskeletal: Reports: Shoulder Pain, Back Pain Skin: Reports: No Symptoms Neurological: Reports: Confusion, Weakness ED EXAM, GENERAL - Physical Exam Exam: See Below Exam Limited By: Altered Mental Status General Appearance: Lethargic Head: Normocephalic Neck: Normal Inspection Respiratory/Chest: Decreased Breath Sounds, Crackles (right lower lobe) Cardiovascular: Regular Rate, Rhythm GI/Abdominal: Soft, Non-Tender, No Distention Extremities: Pedal Edema (1-2+ edema bilaterally lower extremities) Neurological: Other (drowsy) Skin Exam: Warm, Dry, Pallor Course - Vital Signs Last Recorded V/S: Last Vital Signs Temp 97.8 F 08/29/20 16:06 Pulse 120 H 08/29/20 16:06 Resp 18 08/29/20 16:06 BP 134/78 08/29/20 16:06 Pulse Ox 91 L 08/29/20 16:06 - Orders/Labs/Meds Orders: Medication Orders Acetaminophen (Acetaminophen 500 Mg Tab) 1,000 mg PO BID PRN PRN Reason: Pain Albuterol (Albuterol 8 Gm Inhaler Pt Own*8f) 0 gm INH Q4H PRN PRN Reason: Shortness of Breath Apixaban (Apixaban 5 Mg Tab Pt Own) 10 mg PO BID [facility] Fentanyl (Fentanyl 100 Mcg/Hr Transdermal Patch Pt Own) 100 mcg TRDERM Q72H [facility] Fentanyl (Fentanyl 75 Mcg/Hr Transdermal Patch Pt Own) 75 mcg TRDERM Q72H [facility] Furosemide (Furosemide 20 Mg Tab Pt Own) 20 mg PO DAILY [facility] Hydromorphone HCl (Hydromorphone 1 Mg/Ml Syringe) 2 mg IVPUSH Q2H PRN PRN Reason: Pain (severe 7-10) Sodium Chloride (Normal Saline) 1,000 mls @ 125 mls/hr IV ASDIRECTED [facility] Last Admin: 08/29/20 18:58 Dose: 125 mls/hr Documented by: RODRIGO Ketorolac Tromethamine (Ketorolac 30 Mg/Ml Sdv) 15 mg IVPUSH Q6H PRN PRN Reason: Pain Stop: 09/03/20 17:57 Lactulose (Lactulose 10 Gm/15 Ml Solution Pt Own) 10 gm PO BID PRN PRN Reason: Constipation Loratadine (Loratadine 10 Mg Tab) 10 mg PO DAILY@0900 [facility] Lorazepam (Lorazepam 0.5 Mg Tab Pt Own*8) 0.5 mg PO DAILY PRN PRN Reason: Anxiety Dronabinol 10 Mg (Capsule Pt Own) 0 mg PO BID@0900,1900 [facility] Last Admin: 08/29/20 18:51 Dose: 10 mg Documented by: HENRIETTA Ondansetron 8 Mg (Tablet Pt Own*8) 0 mg PO BID@0700,1500 [facility] Acetaminophen/Oxycodone 325-10 Mg Tab Pt Own 0 each PO Q4H [facility] Last Admin: 08/29/20 18:51 Dose: 1 each Documented by: HENRIETTA Prednisone (Prednisone 5 Mg Tab Pt Own) 5 mg PO DAILY@0900 [facility] Pregabalin (Pregabalin 50 Mg Cap Pt Own*8) 50 mg PO TID [facility] Prochlorperazine Maleate (Prochlorperazine 10 Mg Tab Pt Own*8) 10 mg PO QID PRN PRN Reason: Nausea Senna/Docusate Sodium (Docusate Sodium/Sennosides 50-8.6 Mg Tab) 3 tab PO BID [facility] Sodium Chloride (Sodium Chloride 0.9% 10 Ml Syringe) 10 ml FLUSH ASDIRECTED PRN PRN Reason: Keep Vein Open Meds: Medications Generic Name Dose Route Start Last Admin Trade Name Freq PRN Reason Stop Dose Admin Acetaminophen 1,000 mg 08/29/20 17:54 Acetaminophen 500 Mg Tab PO BID PRN Pain Albuterol 0 gm 08/29/20 19:20 Albuterol 8 Gm Inhaler Pt Own*8f INH Q4H PRN Shortness of Breath Apixaban 10 mg 08/29/20 20:00 Apixaban 5 Mg Tab Pt Own PO BID [facility] Fentanyl 100 mcg 09/01/20 09:00 Fentanyl 100 Mcg/Hr Transdermal Patch Pt Own TRDERM Q72H [facility] Fentanyl 75 mcg 09/01/20 09:00 Fentanyl 75 Mcg/Hr Transdermal Patch Pt Own TRDERM Q72H [facility] Furosemide 20 mg 08/30/20 08:00 Furosemide 20 Mg Tab Pt Own PO DAILY [facility] Hydromorphone HCl 2 mg 08/29/20 17:55 Hydromorphone 1 Mg/Ml Syringe IVPUSH Q2H PRN Pain (severe 7-10) Sodium Chloride 1,000 mls @ 125 mls/hr 08/29/20 18:30 08/29/20 18:58 Normal Saline IV 125 mls/hr ASDIRECTED [facility] Administration Ketorolac Tromethamine 15 mg 08/29/20 17:56 Ketorolac 30 Mg/Ml Sdv IVPUSH 09/03/20 17:57 Q6H PRN Pain Lactulose 10 gm 08/29/20 18:28 Lactulose 10 Gm/15 Ml Solution Pt Own PO BID PRN Constipation Loratadine 10 mg 08/30/20 09:00 Loratadine 10 Mg Tab PO DAILY@0900 [facility] Lorazepam 0.5 mg 08/29/20 17:54 Lorazepam 0.5 Mg Tab Pt Own*8 PO DAILY PRN Anxiety Dronabinol 10 Mg 0 mg 08/29/20 19:00 08/29/20 18:51 Capsule Pt Own PO 10 mg BID@0900,1900 [facility] Administration Ondansetron 8 Mg 0 mg 08/30/20 07:00 Tablet Pt Own*8 PO BID@0700,1500 [facility] Acetaminophen/ 0 each 08/29/20 18:17 08/29/20 18:51 Oxycodone 325-10 Mg PO 1 each Tab Pt Own Q4H [facility] Administration Prednisone 5 mg 08/30/20 09:00 Prednisone 5 Mg Tab Pt Own PO DAILY@0900 [facility] Pregabalin 50 mg 08/29/20 20:00 Pregabalin 50 Mg Cap Pt Own*8 PO TID [facility] Prochlorperazine Maleate 10 mg 08/29/20 17:54 Prochlorperazine 10 Mg Tab Pt Own*8 PO QID PRN Nausea Senna/Docusate Sodium 3 tab 08/29/20 20:00 Docusate Sodium/Sennosides 50-8.6 Mg Tab PO BID [facility] Sodium Chloride 10 ml 08/29/20 17:55 Sodium Chloride 0.9% 10 Ml Syringe FLUSH ASDIRECTED PRN Keep Vein Open - Re-Assessments/Exams Free Text/Narrative Re-Assessment/Exam: 08/29/20 1615-Contacted Georgina Silva at [facility] to discuss patient status and plan. They feel she should be admitted for further IV fluids and pain control as one liter may not be enough to help correct her calcium. repeat labs in am and contact Dr. Fowler with results. They did give her a dose of Zometa yesterday and unable to repeat for 7 days. Await further direction in am based on lab res ults. 1715-Much discussion held with family. patient had changed her code status yesterday to a DNR. Mostly concerned about her current pain level. Admit and give IV Toradol as needed, very aware of potential complications from this medication with the Eliquis in regards to bleeding. Departure - Departure Time of Disposition: 17:15 Disposition: Refer to Observation Condition: Poor Clinical Impression: Hypercalcemia of malignancy, Lung cancer - Discharge Information *PRESCRIPTION DRUG MONITORING PROGRAM REVIEWED*: No *COPY OF PRESCRIPTION DRUG MONITORING REPORT IN PATIENT MARY ALICE: No Sepsis Event Note (ED) - Evaluation Sepsis Screening Result: No Definite Risk - Focused Exam Vital Signs: Vital Signs Temp Pulse Resp BP Pulse Ox 08/29/20 16:06 97.8 F 120 H 18 134/78 91 L - Problem List & Annotations (1) Uncontrolled pain SNOMED Code(s): 77483440836626473 Code(s): R52 - PAIN, UNSPECIFIED Status: Acute Priority: High Current Visit: Yes (2) Hypercalcemia of malignancy SNOMED Code(s): 31457016 Code(s): E83.52 - HYPERCALCEMIA Status: Acute Priority: High Current Visit: Yes - Assessment/Plan Admission H&P: Please use this note as an admission H&P Assessment:: Admit to observation for IV fluids and pain control. Will consult with Dr. Fowler in am depending on lab values. Patient and advised. Agree to plan. did get relief of the severe pain in right shoulder from the Toradol injection.
[2020-08-29] MEDS ORDERED: PROCHLORPERAZINE 10 MG PO PRN (17:54)
[2020-08-29] MEDS ORDERED: Acetaminophen 500 MG Tab PO PRN (17:54)
[2020-08-29] MEDS ORDERED: Sodium Chloride 0.9% 10 ML Syringe FLUSH PRN (17:55)
[2020-08-29] MEDS ORDERED: LACTULOSE 10 GM/15 ML PO PRN (18:28)
[2020-08-29] MEDS: DRONABINOL 10 MG PO SCH (18:51)
[2020-08-29] MEDS: OXYCODONE PO SCH ×2 (18:51→22:26)
[2020-08-29] MEDS: ACETAMINOPHEN PO SCH ×2 (18:51→22:26)
[2020-08-29] MEDS: Sodium Chloride 0.9% 1,000 ML IV SCH (18:58)
[2020-08-29] MEDS: APIXABAN 5 MG PO SCH (20:18)
[2020-08-29] MEDS: PREGABALIN 50 MG PO SCH (20:20)
[2020-08-30] MEDS: ACETAMINOPHEN PO SCH ×6 (02:22→23:26)
[2020-08-30] MEDS: OXYCODONE PO SCH ×6 (02:22→23:26)
[2020-08-30] MEDS: Sodium Chloride 0.9% 1,000 ML IV SCH ×3 (02:26→15:42)
[2020-08-30] MEDS: ONDANSETRON 8 MG PO SCH ×2 (06:23→15:46)
[2020-08-30] MEDS: Loratadine 10 MG Tab PO SCH (08:11)
[2020-08-30] MEDS: DRONABINOL 10 MG PO SCH ×2 (08:11→19:46)
[2020-08-30] MEDS: APIXABAN 5 MG PO SCH ×2 (08:13→19:47)
[2020-08-30] MEDS: FUROSEMIDE 20 MG PO SCH (08:13)
[2020-08-30] MEDS: PREGABALIN 50 MG PO SCH ×2 (08:17→14:28)
[2020-08-30] MEDS: PREDNISONE 5 MG PO SCH (08:18)
--- NOTE | 2020-08-30 15:38 | PCM.PN ---
- General Info Date of Service: 08/30/20 Subjective Update: Georgina is a 64 year old female who is seen in the ER yesterday afternoon per recommendations by [facility]. Patient was here for IV fluids per outpatient orders. Was having severe pain in her right shoulder and has had improvement with Toradol in the past. Was given an injection and had improvement of the pain. [facility] was contacted prior to receiving that order and due to her calcium levels, advised to be seen in the ER and evaluated for this. Patient had labs done on Thursday, Zometa was given as well as her chemo injection yesterday at [facility]. She had repeat levels yesterday and her calcium was still high. related that she has had 2 injections with the new chemo. She had increasing pain in her right shoulder over the last few months, meds have been adjusted multiple times. Has had considerable work up for this. They now feel her pain is referred pain is from her liver as she has lesions there now as well. NSAIDs have worked better for her than narcotics. She had been taking ibuprofen and was recently advised to use Aleve. On Thursday, staff at [facility] had noted increased swelling in her legs so felt further investigation of that should be d one. Was found to have DVT in her right leg so was started on Eliquis. states now advised to not use NSAIDs. 08/30/2020 Patient is resting comfortably in her hospital bed. is present and states she has done really well with pain since getting the toradol injection. She asks if she can go home soon. She denies any complaints presently. Functional Status: Reports: Pain Controlled - Review of Systems General: Reports: Weakness. Denies: Fever HEENT: Reports: No Symptoms Pulmonary: Reports: No Symptoms Cardiovascular: Reports: No Symptoms Gastrointestinal: Reports: Constipation. Denies: Abdominal Pain, Nausea, Vomiting Genitourinary: Reports: No Symptoms Musculoskeletal: Reports: No Symptoms Skin: Reports: No Symptoms Neurological: Reports: Confusion - Patient Data Vitals - Most Recent: Last Vital Signs Temp 98 F 08/30/20 12:00 Pulse 115 H 08/30/20 12:00 Resp 18 08/30/20 12:00 BP 108/62 08/30/20 12:00 Pulse Ox 96 08/30/20 12:00 Weight - Most Recent: 137 lb 4.8 oz I&O - Last 24 Hours: Intake & Output 08/30/20 08/30/20 08/30/20 06:59 14:59 22:59 Intake Total 1233 990 Output Total 0 Balance 1233 990 Lab Results Last 24 Hours: Laboratory Results - last 24 hr 08/30/20 08/30/20 Range/Units 06:50 06:50 WBC 43.8 H* (5.0-10.0) 10^3/uL RBC 2.37 L (4.00-5.50) 10^6/uL Hgb 8.3 L (12.0-16.0) g/dL Hct 25.3 L (37.0-47.0) % MCV 106.8 H (82.0-94.0) fL MCH 35.0 H (27.0-32.0) pg MCHC 32.8 L (33.0-38.0) g/dL RDW Coeff of Lokesh 15.5 H (11.0-15.0) % Plt Count 116 L (150-400) 10^3/uL Neut % (Auto) 97.2 H (35-85) % Lymph % (Auto) 0.6 L (10-55) % Turner % (Auto) 2.1 (0-16) % Eos % (Auto) 0.1 (0-5) % Baso % (Auto) 0 (0-3) % Neut # (Auto) 42.56 H (1.80-7.00) 10^3/uL Lymph # (Auto) 0.27 L (1.00-4.80) 10^3/uL Turner # (Auto) 0.93 H (0.00-0.80) 10^3/uL Eos # (Auto) 0.03 (0.00-0.45) 10^3/uL Baso # (Auto) 0.01 10^3/uL Sodium 133 L (136-145) mEq/L Potassium 4.7 (3.5-5.0) mEq/L Chloride 99 (98-106) mEq/L Carbon Dioxide 24 (21-32) mmol/L BUN 38 H (7-18) mg/dL Creatinine 1.8 H (0.6-1.0) mg/dL Est Cr Clr Drug Dosing 27.98 mL/min Estimated GFR (MDRD) 29 L (>=60) mL/min Glucose 74 L D (75-99) mg/dL Calcium 11.5 H (8.4-10.1) mg/dL Magnesium 1.4 L (1.8-2.4) mg/dL Total Bilirubin 0.3 (0.0-1.0) mg/dL AST 138 H (15-37) U/L ALT 100 H (12-78) U/L Alkaline Phosphatase 383 H (46-116) U/L Total Protein 5.7 L (6.4-8.2) g/dL Albumin 2.6 L (3.4-5.0) g/dL Med Orders - Current: Current Medications Acetaminophen (Acetaminophen 500 Mg Tab) 1,000 mg PO BID PRN PRN Reason: Pain Albuterol (Albuterol 8 Gm Inhaler Pt Own*8f) 0 gm INH Q4H PRN PRN Reason: Shortness of Breath Apixaban (Apixaban 5 Mg Tab Pt Own) 10 mg PO BID [facility] Last Admin: 08/30/20 08:13 Dose: 10 mg Documented by: Fentanyl (Fentanyl 100 Mcg/Hr Transdermal Patch Pt Own) 100 mcg TRDERM Q72H [facility] Fentanyl (Fentanyl 75 Mcg/Hr Transdermal Patch Pt Own) 75 mcg TRDERM Q72H [facility] Furosemide (Furosemide 20 Mg Tab Pt Own) 20 mg PO DAILY [facility] Stop: 08/31/20 19:00 Last Admin: 08/30/20 08:13 Dose: 20 mg Documented by: Furosemide (Furosemide 20 Mg Tab) 10 mg PO DAILY [facility] Hydromorphone HCl (Hydromorphone 1 Mg/Ml Syringe) 2 mg IVPUSH Q2H PRN PRN Reason: Pain (severe 7-10) Sodium Chloride (Normal Saline) 1,000 mls @ 125 mls/hr IV ASDIRECTED [facility] Last Admin: 08/30/20 10:21 Dose: 125 mls/hr Documented by: Ketorolac Tromethamine (Ketorolac 30 Mg/Ml Sdv) 15 mg IVPUSH Q6H PRN PRN Reason: Pain Stop: 09/03/20 17:57 Lactulose (Lactulose 10 Gm/15 Ml Solution Pt Own) 10 gm PO BID PRN PRN Reason: Constipation Loratadine (Loratadine 10 Mg Tab) 10 mg PO DAILY@0900 [facility] Last Admin: 08/30/20 08:11 Dose: 10 mg Documented by: Lorazepam (Lorazepam 0.5 Mg Tab Pt Own*8) 0.5 mg PO DAILY PRN PRN Reason: Anxiety Dronabinol 10 Mg (Capsule Pt Own) 0 mg PO BID@0900,1900 [facility] Last Admin: 08/30/20 08:11 Dose: 10 mg Documented by: Ondansetron 8 Mg (Tablet Pt Own*8) 0 mg PO BID@0700,1500 [facility] Last Admin: 08/30/20 06:23 Dose: 8 mg Documented by: Acetaminophen/Oxycodone 325-10 Mg Tab Pt Own 0 each PO Q4H [facility] Last Admin: 08/30/20 12:23 Dose: 1 each Documented by: Prednisone (Prednisone 5 Mg Tab Pt Own) 5 mg PO DAILY@0900 [facility] Last Admin: 08/30/20 08:18 Dose: 5 mg Documented by: Pregabalin (Pregabalin 50 Mg Cap Pt Own*8) 50 mg PO TID [facility] Last Admin: 08/30/20 14:28 Dose: 50 mg Documented by: Prochlorperazine Maleate (Prochlorperazine 10 Mg Tab Pt Own*8) 10 mg PO QID PRN PRN Reason: Nausea Senna/Docusate Sodium (Docusate Sodium/Sennosides 50-8.6 Mg Tab) 3 tab PO BID [facility] Last Admin: 08/30/20 08:06 Dose: 3 tab Documented by: Sodium Chloride (Sodium Chloride 0.9% 10 Ml Syringe) 10 ml FLUSH ASDIRECTED PRN PRN Reason: Keep Vein Open - Exam General: Alert, Cooperative, No Acute Distress Lungs: Normal Respiratory Effort, Decreased Breath Sounds Cardiovascular: Regular Rate, Regular Rhythm GI/Abdominal Exam: Normal Bowel Sounds, Soft, Non-Tender, No Distention Extremities: Non-Tender, Pedal Edema Skin: Warm, Dry, Intact Psy/Mental Status: Alert, Normal Affect, Normal Mood - Patient Data Lab Results Last 24 hrs: Laboratory Results - last 24 hr 08/30/20 08/30/20 Range/Units 06:50 06:50 WBC 43.8 H* (5.0-10.0) 10^3/uL RBC 2.37 L (4.00-5.50) 10^6/uL Hgb 8.3 L (12.0-16.0) g/dL Hct 25.3 L (37.0-47.0) % MCV 106.8 H (82.0-94.0) fL MCH 35.0 H (27.0-32.0) pg MCHC 32.8 L (33.0-38.0) g/dL RDW Coeff of Lokesh 15.5 H (11.0-15.0) % Plt Count 116 L (150-400) 10^3/uL Neut % (Auto) 97.2 H (35-85) % Lymph % (Auto) 0.6 L (10-55) % Turner % (Auto) 2.1 (0-16) % Eos % (Auto) 0.1 (0-5) % Baso % (Auto) 0 (0-3) % Neut # (Auto) 42.56 H (1.80-7.00) 10^3/uL Lymph # (Auto) 0.27 L (1.00-4.80) 10^3/uL Turner # (Auto) 0.93 H (0.00-0.80) 10^3/uL Eos # (Auto) 0.03 (0.00-0.45) 10^3/uL Baso # (Auto) 0.01 10^3/uL Sodium 133 L (136-145) mEq/L Potassium 4.7 (3.5-5.0) mEq/L Chloride 99 (98-106) mEq/L Carbon Dioxide 24 (21-32) mmol/L BUN 38 H (7-18) mg/dL Creatinine 1.8 H (0.6-1.0) mg/dL Est Cr Clr Drug Dosing 27.98 mL/min Estimated GFR (MDRD) 29 L (>=60) mL/min Glucose 74 L D (75-99) mg/dL Calcium 11.5 H (8.4-10.1) mg/dL Magnesium 1.4 L (1.8-2.4) mg/dL Total Bilirubin 0.3 (0.0-1.0) mg/dL AST 138 H (15-37) U/L ALT 100 H (12-78) U/L Alkaline Phosphatase 383 H (46-116) U/L Total Protein 5.7 L (6.4-8.2) g/dL Albumin 2.6 L (3.4-5.0) g/dL Result Diagrams: 08/30/20 06:50 08/30/20 06:50 Sepsis Event Note - Evaluation Sepsis Screening Result: No Definite Risk - Focused Exam Vital Signs: Vital Signs Temp Pulse Resp BP Pulse Ox 08/30/20 12:00 98 F 115 H 18 108/62 96 08/30/20 08:00 98.4 F 115 H 18 96/55 L 93 L - Problem List & Annotations (1) Hypercalcemia of malignancy SNOMED Code(s): 69706900 Code(s): E83.52 - HYPERCALCEMIA Status: Acute Priority: High Current Visit: Yes (2) Lung cancer metastatic to bone SNOMED Code(s): 62660053 Code(s): C34.90 - MALIGNANT NEOPLASM OF UNSP PART OF UNSP BRONCHUS OR LUNG; C79.51 - SECONDARY MALIGNANT NEOPLASM OF BONE Status: Acute Priority: High Current Visit: No - Problem List Review Problem List Initiated/Reviewed/Updated: Yes - Plan Plan:: Dr. Morgan evaluated patient this morning and discussed prognosis with Georgina and her . Discussed the importance of controlling her pain and will have Toradol for as needed. Discussed chronic use and GI side effects with Eliquis. Calcium level is significantly improved today to 11.2. Will keep observation and repeat labs tomorrow. If any further pain may consider increasing Fentanyl patch to 2 - 100mcg patches as discussed with Dr. Morgan. Will use Toradol for break thru pain.
[2020-08-30] MEDS ORDERED: Non-Formulary Medication 1 Each (Ondansetron 8 MG) PO PRN (15:51)
[2020-08-30] MEDS: Ketorolac 30 MG/ML SDV IVPUSH PRN (16:31)
[2020-08-31] MEDS: OXYCODONE PO SCH ×6 (02:30→22:38)
[2020-08-31] MEDS: ACETAMINOPHEN PO SCH ×6 (02:30→22:38)
[2020-08-31] MEDS: Sodium Chloride 0.9% 1,000 ML IV SCH ×2 (02:31→11:33)
[2020-08-31] MEDS ORDERED: Pregabalin 50 MG Cap PO SCH (08:00)
[2020-08-31] MEDS: Ketorolac 30 MG/ML SDV IVPUSH PRN ×2 (08:13→15:13)
[2020-08-31] MEDS: Loratadine 10 MG Tab PO SCH (08:15)
[2020-08-31] MEDS: Ondansetron 4 MG/2 ML SDV IVPUSH PRN ×2 (08:50→19:14)
[2020-08-31] MEDS ORDERED: Pantoprazole 40 MG Vial IVPUSH SCH (10:15)
[2020-08-31] MEDS: FUROSEMIDE 20 MG PO SCH (11:25)
[2020-08-31] MEDS: APIXABAN 5 MG PO SCH (11:26)
[2020-08-31] MEDS: DRONABINOL 10 MG PO SCH ×2 (11:32→19:13)
[2020-08-31] MEDS: PREDNISONE 5 MG PO SCH (11:40)
[2020-08-31] MEDS ORDERED: fentaNYL 100 MCG/HR Transdermal Patch TRDERM SCH (13:00)
[2020-08-31] MEDS: HYDROmorphone 1 MG/ML Syringe IVPUSH PRN (13:13)
[2020-08-31] MEDS ORDERED: Albuterol 8 GM Inhaler INH PRN (13:16)
[2020-08-31] MEDS ORDERED: LORazepam 0.5 MG Tab PO PRN (13:17)
[2020-08-31] MEDS ORDERED: Prochlorperazine 10 MG Tab PO PRN (13:23)
[2020-08-31] MEDS ORDERED: Furosemide 40 MG/4 ML VIAL IVPUSH ONE (13:40)
[2020-08-31] MEDS: fentaNYL 50 MCG/HR Transdermal Patch TRDERM SCH (15:17)
--- NOTE | 2020-08-31 17:27 | PCM.PN ---
- General Info Date of Service: 08/31/20 Subjective Update: Georgina is a 64 year old female who is seen in the ER yesterday afternoon per recommendations by [facility]. Patient was here for IV fluids per outpatient orders. Was having severe pain in her right shoulder and has had improvement with Toradol in the past. Was given an injection and had improvement of the pain. [facility] was contacted prior to receiving that order and due to her calcium levels, advised to be seen in the ER and evaluated for this. Patient had labs done on Thursday, Zometa was given as well as her chemo injection yesterday at [facility]. She had repeat levels yesterday and her calcium was still high. related that she has had 2 injections with the new chemo. She had increasing pain in her right shoulder over the last few months, meds have been adjusted multiple times. Has had considerable work up for this. They now feel her pain is referred pain is from her liver as she has lesions there now as well. NSAIDs have worked better for her than narcotics. She had been taking ibuprofen and was recently advised to use Aleve. On Thursday, staff at [facility] had noted increased swelling in her legs so felt further investigation of that should be d one. Was found to have DVT in her right leg so was started on Eliquis. states now advised to not use NSAIDs. 08/30/2020 Patient is resting comfortably in her hospital bed. is present and states she has done really well with pain since getting the toradol injection. She asks if she can go home soon. She denies any complaints presently. 08/31/2020 Georgina is in good spirits this morning. She did have increased right shoulder discomfort and was given Toradol which is the only thing that seems to give her relief for break thru pain. Nursing staff have noticed swelling in her abdomen since yesterday and her legs. She admits to mild shortness of breath. is present and daughter is available via phone this morning. Daughter is concerned of her mother's discomfort and what they can do to help her with the pain as it seems when it gets severe nothing but NSAID's help it. They are concerned because they were told not to give any d/t being on blood thinner for DVT. - Review of Systems General: Reports: Weakness, Fatigue HEENT: Reports: No Symptoms Pulmonary: Reports: Shortness of Breath. Denies: Pleuritic Chest Pain, Cough Cardiovascular: Reports: No Symptoms Gastrointestinal: Reports: Other (bloated). Denies: Diarrhea, Nausea, Vomiting Genitourinary: Reports: No Symptoms Musculoskeletal: Reports: Shoulder Pain Skin: Reports: No Symptoms Neurological: Reports: No Symptoms - Patient Data Vitals - Most Recent: Last Vital Signs Temp 98.2 F 08/31/20 12:00 Pulse 115 H 08/31/20 12:00 Resp 12 08/31/20 12:00 BP 110/62 08/31/20 12:00 Pulse Ox 91 L 08/31/20 12:00 Weight - Most Recent: 137 lb 4.8 oz I&O - Last 24 Hours: Intake & Output 08/31/20 08/31/20 08/31/20 06:59 14:59 22:59 Intake Total 1350 1000 600 Output Total 370 550 Balance 980 1000 50 Lab Results Last 24 Hours: Laboratory Results - last 24 hr 08/31/20 08/31/20 Range/Units 08:27 08:27 WBC 59.7 H* (5.0-10.0) 10^3/uL RBC 2.17 L (4.00-5.50) 10^6/uL Hgb 7.7 L* (12.0-16.0) g/dL Hct 23.3 L (37.0-47.0) % MCV 107.4 H (82.0-94.0) fL MCH 35.5 H (27.0-32.0) pg MCHC 33.0 (33.0-38.0) g/dL RDW Coeff of Lokesh 15.6 H (11.0-15.0) % Plt Count 108 L (150-400) 10^3/uL Add Manual Diff Yes Neutrophils % (Manual) 90 H (35-85) % Band Neutrophils % 9 H (0-5) % Lymphocytes % (Manual) 1 L (21-55) % Absolute Neutrophils 59.10 H (1.80-7.00) 10^3/uL Lymphocytes # (Manual) 0.60 L (1.00-4.80) 10^3/uL Sodium 133 L (136-145) mEq/L Potassium 4.3 (3.5-5.0) mEq/L Chloride 100 (98-106) mEq/L Carbon Dioxide 21 (21-32) mmol/L BUN 47 H (7-18) mg/dL Creatinine 1.8 H (0.6-1.0) mg/dL Est Cr Clr Drug Dosing 27.98 mL/min Estimated GFR (MDRD) 29 L (>=60) mL/min Glucose 84 (75-99) mg/dL Calcium 9.9 (8.4-10.1) mg/dL Med Orders - Current: Current Medications Acetaminophen (Acetaminophen 500 Mg Tab) 1,000 mg PO BID PRN PRN Reason: Pain Albuterol (Albuterol 8 Gm Inhaler) 0 gm INH Q4H PRN PRN Reason: Shortness of Breath Apixaban (Apixaban 5 Mg Tab) 10 mg PO BID [facility] Fentanyl (Fentanyl 100 Mcg/Hr Transdermal Patch) 100 mcg TRDERM Q72H [facility] Fentanyl (Fentanyl 50 Mcg/Hr Transdermal Patch) 100 mcg TRDERM Q72H [facility] Last Admin: 08/31/20 15:17 Dose: 100 mcg Documented by: Furosemide (Furosemide 40 Mg Tab) 40 mg PO BIDDIURETIC [facility] Hydromorphone HCl (Hydromorphone 1 Mg/Ml Syringe) 2 mg IVPUSH Q2H PRN PRN Reason: Pain (severe 7-10) Ketorolac Tromethamine (Ketorolac 30 Mg/Ml Sdv) 15 mg IVPUSH Q6H PRN PRN Reason: Pain Stop: 09/03/20 17:57 Last Admin: 08/31/20 15:13 Dose: 15 mg Documented by: Lactulose (Lactulose 10 Gm/15 Ml Solution) 10 gm PO BID PRN PRN Reason: Constipation Loratadine (Loratadine 10 Mg Tab) 10 mg PO DAILY@0900 [facility] Last Admin: 08/31/20 08:15 Dose: 10 mg Documented by: Lorazepam (Lorazepam 0.5 Mg Tab) 0.5 mg PO DAILY PRN PRN Reason: Anxiety Dronabinol 10 Mg (Capsule Pt Own) 0 mg PO BID@0900,1900 [facility] Last Admin: 08/31/20 11:32 Dose: 10 mg Documented by: Acetaminophen/Oxycodone 325-10 Mg Tab Pt Own 0 each PO Q4H [facility] Last Admin: 08/31/20 14:18 Dose: 1 each Documented by: Ondansetron HCl (Ondansetron 4 Mg/2 Ml Sdv) 4 mg IVPUSH Q6H PRN PRN Reason: Nausea Last Admin: 08/31/20 08:50 Dose: 4 mg Documented by: Ondansetron HCl (Ondansetron 4 Mg Tab.Dis) 8 mg PO BID PRN PRN Reason: Nausea Pantoprazole Sodium (Pantoprazole 40 Mg Vial) 40 mg IVPUSH Q24H [facility] Last Admin: 08/31/20 11:38 Dose: 40 mg Documented by: Prednisone (Prednisone 5 Mg Tab) 5 mg PO DAILY@0900 [facility] Pregabalin (Pregabalin 50 Mg Cap) 50 mg PO BID [facility] Prochlorperazine Maleate (Prochlorperazine 10 Mg Tab) 10 mg PO QID PRN PRN Reason: Nausea Senna/Docusate Sodium (Docusate Sodium/Sennosides 50-8.6 Mg Tab) 3 tab PO BID [facility] Last Admin: 08/31/20 08:16 Dose: 3 tab Documented by: Sodium Chloride (Sodium Chloride 0.9% 10 Ml Syringe) 10 ml FLUSH ASDIRECTED PRN PRN Reason: Keep Vein Open Discontinued Medications Apixaban (Apixaban 5 Mg Tab Pt Own) 10 mg PO BID [facility] Last Admin: 08/31/20 11:26 Dose: 10 mg Documented by: Fentanyl (Fentanyl 100 Mcg/Hr Transdermal Patch Pt Own) 100 mcg TRDERM Q72H [facility] Fentanyl (Fentanyl 75 Mcg/Hr Transdermal Patch Pt Own) 75 mcg TRDERM Q72H [facility] Fentanyl (Fentanyl 100 Mcg/Hr Transdermal Patch) 100 mcg TRDERM Q72H [facility] Last Admin: 08/31/20 15:20 Dose: Not Given Documented by: Furosemide (Furosemide 20 Mg Tab Pt Own) 20 mg PO DAILY [facility] Stop: 08/31/20 19:00 Last Admin: 08/31/20 11:25 Dose: 20 mg Documented by: Furosemide (Furosemide 20 Mg Tab) 10 mg PO DAILY [facility] Furosemide (Furosemide 40 Mg/4 Ml Vial) 40 mg IVPUSH ONETIME ONE Stop: 08/31/20 13:41 Last Admin: 08/31/20 14:00 Dose: 40 mg Documented by: Sodium Chloride (Normal Saline) 1,000 mls @ 50 mls/hr IV ASDIRECTED [facility] Last Admin: 08/31/20 11:33 Dose: 75 mls/hr Documented by: Lactulose (Lactulose 10 Gm/15 Ml Solution Pt Own) 10 gm PO BID PRN PRN Reason: Constipation Ondansetron 8 Mg (Tablet Pt Own*8) 0 mg PO BID@0700,1500 [facility] Last Admin: 08/30/20 15:46 Dose: Not Given Documented by: Non-Formulary Medication (Ondansetron) 8 mg PO BID PRN PRN Reason: Nausea Last Admin: 08/31/20 06:14 Dose: 8 mg Documented by: Prednisone (Prednisone 5 Mg Tab Pt Own) 5 mg PO DAILY@0900 [facility] Last Admin: 08/31/20 11:40 Dose: 5 mg Documented by: Pregabalin (Pregabalin 50 Mg Cap Pt Own*8) 50 mg PO TID [facility] Last Admin: 08/30/20 14:28 Dose: 50 mg Documented by: Pregabalin (Pregabalin 50 Mg Cap) 50 mg PO BID [facility] Last Admin: 08/31/20 11:27 Dose: 50 mg Documented by: Prochlorperazine Maleate (Prochlorperazine 10 Mg Tab Pt Own*8) 10 mg PO QID PRN PRN Reason: Nausea - Exam General: Alert, Oriented, Cooperative, No Acute Distress Lungs: Clear to Auscultation, Normal Respiratory Effort Cardiovascular: Regular Rate, Regular Rhythm, No Murmurs GI/Abdominal Exam: Normal Bowel Sounds, No Organomegaly, No Mass, Distended Extremities: Pedal Edema Skin: Warm, Dry, Intact Psy/Mental Status: Alert, Normal Affect, Normal Mood - Patient Data Lab Results Last 24 hrs: Laboratory Results - last 24 hr 08/31/20 08/31/20 Range/Units 08:27 08:27 WBC 59.7 H* (5.0-10.0) 10^3/uL RBC 2.17 L (4.00-5.50) 10^6/uL Hgb 7.7 L* (12.0-16.0) g/dL Hct 23.3 L (37.0-47.0) % MCV 107.4 H (82.0-94.0) fL MCH 35.5 H (27.0-32.0) pg MCHC 33.0 (33.0-38.0) g/dL RDW Coeff of Lokesh 15.6 H (11.0-15.0) % Plt Count 108 L (150-400) 10^3/uL Add Manual Diff Yes Neutrophils % (Manual) 90 H (35-85) % Band Neutrophils % 9 H (0-5) % Lymphocytes % (Manual) 1 L (21-55) % Absolute Neutrophils 59.10 H (1.80-7.00) 10^3/uL Lymphocytes # (Manual) 0.60 L (1.00-4.80) 10^3/uL Sodium 133 L (136-145) mEq/L Potassium 4.3 (3.5-5.0) mEq/L Chloride 100 (98-106) mEq/L Carbon Dioxide 21 (21-32) mmol/L BUN 47 H (7-18) mg/dL Creatinine 1.8 H (0.6-1.0) mg/dL Est Cr Clr Drug Dosing 27.98 mL/min Estimated GFR (MDRD) 29 L (>=60) mL/min Glucose 84 (75-99) mg/dL Calcium 9.9 (8.4-10.1) mg/dL Result Diagrams: 08/31/20 08:27 08/31/20 08:27 Sepsis Event Note - Evaluation Sepsis Screening Result: No Definite Risk - Focused Exam Vital Signs: Vital Signs Temp Pulse Resp BP Pulse Ox 08/31/20 12:00 98.2 F 115 H 12 110/62 91 L 08/31/20 08:00 98.9 F 118 H 18 108/62 91 L - Problem List & Annotations (1) Hypercalcemia of malignancy SNOMED Code(s): 01573029 Code(s): E83.52 - HYPERCALCEMIA Status: Resolved Priority: High Current Visit: Yes (2) Lung cancer metastatic to bone SNOMED Code(s): 88360859 Code(s): C34.90 - MALIGNANT NEOPLASM OF UNSP PART OF UNSP BRONCHUS OR LUNG; C79.51 - SECONDARY MALIGNANT NEOPLASM OF BONE Status: Chronic Priority: High Current Visit: No (3) Ascites SNOMED Code(s): 506580229 Code(s): R18.8 - OTHER ASCITES Status: Acute Current Visit: Yes Qualifiers: Ascites type: malignant Qualified Code(s): R18.0 - Malignant ascites - Problem List Review Problem List Initiated/Reviewed/Updated: Yes - My Orders Last 24 Hours: My Active Orders 08/31/20 10:15 Pantoprazole [ProTONIX IV] 40 mg IVPUSH Q24H 08/31/20 13:29 Patient Status [ADT] Routine 08/31/20 15:00 fentaNYL [Duragesic] 100 mcg TRDERM Q72H 09/01/20 05:11 BMP [BASIC METABOLIC PANEL,BMP] [CHEM] AM CBC WITH AUTO DIFF [HEME] AM 09/01/20 08:00 Furosemide [Lasix] 40 mg PO BIDDIURETIC 09/01/20 13:00 fentaNYL [Duragesic] 100 mcg TRDERM Q72H 09/02/20 05:11 BMP [BASIC METABOLIC PANEL,BMP] [CHEM] AM CBC WITH AUTO DIFF [HEME] AM 09/03/20 05:11 BMP [BASIC METABOLIC PANEL,BMP] [CHEM] AM CBC WITH AUTO DIFF [HEME] AM 09/03/20 12:57 Abdomen Comp [US] Routine - Plan Plan:: Dr. Morgan evaluated patient this morning and discussed prognosis with Georgina and her . Discussed the importance of controlling her pain and will have Toradol for as needed. Discussed chronic use and GI side effects with Eliquis. Calcium level is significantly improved today to 11.2. Will keep observation and repeat labs tomorrow. If any further pain may consider increasing Fentanyl patch to 2 - 100mcg patches as discussed with Dr. Morgan. Will use Toradol for break thru pain. 08/31/2020 Patient will be switched to acute care today. Plan for ultrasound of the abdomen, automation control technician out of the office today. Will get ultrasound on Thursday. Lasix 40mg IV today. Will start Lasix 40mg PO BID tomorrow. Dr. Morgan in room with patient and answered all of daughter's questions. Will continue with IV toradol for break thru pain. Calcium level has dropped back to normal limits today. Will d/c IV fluids at this time. CBC and BMP ordered for tomorrow. Will closely monitor.
[2020-08-31] MEDS: Pregabalin 50 MG Cap PO SCH (19:14)
[2020-08-31] MEDS: Apixaban 5 MG Tab PO SCH (19:15)
[2020-09-01] MEDS: OXYCODONE PO SCH ×6 (01:56→23:40)
[2020-09-01] MEDS: ACETAMINOPHEN PO SCH ×6 (01:56→23:40)
[2020-09-01] MEDS: Ketorolac 30 MG/ML SDV IVPUSH PRN (02:09)
[2020-09-01] MEDS: Pregabalin 50 MG Cap PO SCH ×2 (07:39→19:44)
[2020-09-01] MEDS: Furosemide 40 MG Tab PO SCH ×2 (07:39→15:02)
[2020-09-01] MEDS: Apixaban 5 MG Tab PO SCH ×2 (07:39→19:44)
[2020-09-01] MEDS ORDERED: fentaNYL 100 MCG/HR Transdermal Patch TRDERM SCH (08:00)
[2020-09-01] MEDS ORDERED: Furosemide 20 MG Tab PO SCH (08:00)
[2020-09-01] MEDS: Pantoprazole 40 MG Vial IVPUSH SCH (08:10)
[2020-09-01] MEDS: predniSONE 5 MG Tab PO SCH (08:10)
[2020-09-01] MEDS: Loratadine 10 MG Tab PO SCH (08:10)
[2020-09-01] MEDS: Ondansetron 4 MG/2 ML SDV IVPUSH PRN (08:10)
[2020-09-01] MEDS: fentaNYL 50 MCG/HR Transdermal Patch TRDERM SCH (08:45)
[2020-09-01] MEDS ORDERED: FENTANYL 100 MCG/HR TRDERM SCH (09:00)
[2020-09-01] MEDS ORDERED: FENTANYL 75 MCG/HR TRDERM SCH (09:00)
[2020-09-01] MEDS: DRONABINOL 10 MG PO SCH ×2 (10:35→18:12)
--- NOTE | 2020-09-01 10:46 | PCM.PN ---
- General Info Date of Service: 09/01/20 Admission Dx/Problem (Free Text): Hypercalcemia Subjective Update: Georgina is a 64 year old female who is seen in the ER yesterday afternoon per recommendations by [facility]. Patient was here for IV fluids per outpatient orders. Was having severe pain in her right shoulder and has had improvement with Toradol in the past. Was given an injection and had improvement of the pain. [facility] was contacted prior to receiving that order and due to her calcium levels, advised to be seen in the ER and evaluated for this. Patient had labs done on Thursday, Zometa was given as well as her chemo injection yesterday at [facility]. She had repeat levels yesterday and her calcium was still high. related that she has had 2 injections with the new chemo. She had increasing pain in her right shoulder over the last few months, meds have been adjusted multiple times. Has had considerable work up for this. They now feel her pain is referred pain is from her liver as she has lesions there now as well. NSAIDs have worked better for her than narcotics. She had been taking ibuprofen and was recently advised to use Aleve. On Thursday, staff at [facility] had noted incr eased swelling in her legs so felt further investigation of that should be done. Was found to have DVT in her right leg so was started on Eliquis. states now advised to not use NSAIDs. 08/30/2020 Patient is resting comfortably in her hospital bed. is present and states she has done really well with pain since getting the toradol injection. She asks if she can go home soon. She denies any complaints presently. 08/31/2020 Georgina is in good spirits this morning. She did have increased right shoulder discomfort and was given Toradol which is the only thing that seems to give her relief for break thru pain. Nursing staff have noticed swelling in her abdomen since yesterday and her legs. She admits to mild shortness of breath. is present and daughter is available via phone this morning. Daughter is concerned of her mother's discomfort and what they can do to help her with the pain as it seems when it gets severe nothing but NSAID's help it. They are concerned rita use they were told not to give any d/t being on blood thinner for DVT. 09-01-2020 Patient is quiet this am, drowsy. States pain at a 5/6. Is getting intermittent Toradol injections yet as still feels those are more beneficial and family is aware of the risk. Protonix was started yesterday for GI protection. Is still getting oxycodone scheduled every 4 hours. Abdomen still bloated. Feels pressure but feels unchanged since yesterday. Likely has ascites due to liver mets and given 2 days of IV fluids. Edema has increased in her legs, 2-3+ up to thighs. Denies increased shortness of breath since yesterday. Is on oxygen at 2 liters to maintain stats. Afebrile. Blood pressure stable. Appetite is poor. Has not had had a BM for about 9 days, declines having a suppository. Functional Status: Reports: Pain Controlled, Ambulating (with assistance). Denies: Tolerating Diet (eats minimally) - Review of Systems General: Reports: Weakness, Fatigue, Malaise HEENT: Denies: Ear Pain, Sinus Congestion Pulmonary: Reports: Shortness of Breath. Denies: Cough Cardiovascular: Reports: Edema. Denies: Chest Pain, Lightheadedness Gastrointestinal: Reports: Abdominal Pain, Constipation, Other (bloating). Denies: Nausea, Vomiting Genitourinary: Reports: No Symptoms Musculoskeletal: Reports: Shoulder Pain Skin: Reports: Pallor Neurological: Reports: Weakness - Patient Data Vitals - Most Recent: Last Vital Signs Temp 98.2 F 09/01/20 08:00 Pulse 110 H 09/01/20 08:00 Resp 12 09/01/20 08:00 BP 103/62 09/01/20 08:00 Pulse Ox 93 L 09/01/20 08:00 Weight - Most Recent: 137 lb 4.8 oz I&O - Last 24 Hours: Intake & Output 08/31/20 09/01/20 09/01/20 22:59 06:59 14:59 Intake Total 600 200 Output Total 550 500 Balance 50 -300 Lab Results Last 24 Hours: Laboratory Results - last 24 hr 09/01/20 09/01/20 Range/Units 05:11 05:11 WBC 64.1 H* (5.0-10.0) 10^3/uL RBC 2.04 L (4.00-5.50) 10^6/uL Hgb 7.2 L* (12.0-16.0) g/dL Hct 21.9 L (37.0-47.0) % MCV 107.4 H (82.0-94.0) fL MCH 35.3 H (27.0-32.0) pg MCHC 32.9 L (33.0-38.0) g/dL RDW Coeff of Lokesh 15.1 H (11.0-15.0) % Plt Count 95 L (150-400) 10^3/uL Neut % (Auto) 97.8 H (35-85) % Lymph % (Auto) 0.3 L (10-55) % [place] % (Auto) 1.7 (0-16) % Eos % (Auto) 0.2 (0-5) % Baso % (Auto) 0 (0-3) % Neut # (Auto) 62.72 H (1.80-7.00) 10^3/uL Lymph # (Auto) 0.21 L (1.00-4.80) 10^3/uL [place] # (Auto) 1.09 H (0.00-0.80) 10^3/uL Eos # (Auto) 0.10 (0.00-0.45) 10^3/uL Baso # (Auto) 0.01 10^3/uL Sodium 131 L (136-145) mEq/L Potassium 4.6 (3.5-5.0) mEq/L Chloride 98 (98-106) mEq/L Carbon Dioxide 19 L (21-32) mmol/L BUN 56 H (7-18) mg/dL Creatinine 1.9 H (0.6-1.0) mg/dL Est Cr Clr Drug Dosing 26.51 mL/min Estimated GFR (MDRD) 27 L (>=60) mL/min Glucose 77 (75-99) mg/dL Calcium 9.7 (8.4-10.1) mg/dL Med Orders - Current: Current Medications Acetaminophen (Acetaminophen 500 Mg Tab) 1,000 mg PO BID PRN PRN Reason: Pain Albuterol (Albuterol 8 Gm Inhaler) 0 gm INH Q4H PRN PRN Reason: Shortness of Breath Apixaban (Apixaban 5 Mg Tab) 10 mg PO BID [facility] Last Admin: 09/01/20 07:39 Dose: 10 mg Documented by: Fentanyl (Fentanyl 50 Mcg/Hr Transdermal Patch) 100 mcg TRDERM Q72H [facility] Last Admin: 08/31/20 15:17 Dose: 100 mcg Documented by: Fentanyl (Fentanyl 50 Mcg/Hr Transdermal Patch) 100 mcg TRDERM Q72H [facility] Last Admin: 09/01/20 08:45 Dose: 100 mcg Documented by: Furosemide (Furosemide 40 Mg Tab) 40 mg PO BIDDIURETIC [facility] Last Admin: 09/01/20 07:39 Dose: 40 mg Documented by: Hydromorphone HCl (Hydromorphone 1 Mg/Ml Syringe) 2 mg IVPUSH Q2H PRN PRN Reason: Pain (severe 7-10) Ketorolac Tromethamine (Ketorolac 30 Mg/Ml Sdv) 15 mg IVPUSH Q6H PRN PRN Reason: Pain Stop: 09/03/20 17:57 Last Admin: 09/01/20 02:09 Dose: 15 mg Documented by: Lactulose (Lactulose 10 Gm/15 Ml Solution) 10 gm PO BID PRN PRN Reason: Constipation Last Admin: 09/01/20 07:38 Dose: 10 gm Documented by: Loratadine (Loratadine 10 Mg Tab) 10 mg PO DAILY@0900 [facility] Last Admin: 09/01/20 08:10 Dose: 10 mg Documented by: Lorazepam (Lorazepam 0.5 Mg Tab) 0.5 mg PO DAILY PRN PRN Reason: Anxiety Dronabinol 10 Mg (Capsule Pt Own) 0 mg PO BID@0900,1900 [facility] Last Admin: 09/01/20 10:35 Dose: 10 mg Documented by: Acetaminophen/Oxycodone 325-10 Mg Tab Pt Own 0 each PO Q4H [facility] Last Admin: 09/01/20 10:35 Dose: 1 each Documented by: Ondansetron HCl (Ondansetron 4 Mg/2 Ml Sdv) 4 mg IVPUSH Q6H PRN PRN Reason: Nausea Last Admin: 09/01/20 08:10 Dose: 4 mg Documented by: Ondansetron HCl (Ondansetron 4 Mg Tab.Dis) 8 mg PO BID PRN PRN Reason: Nausea Pantoprazole Sodium (Pantoprazole 40 Mg Vial) 40 mg IVPUSH Q24H [facility] Last Admin: 09/01/20 08:10 Dose: 40 mg Documented by: Prednisone (Prednisone 5 Mg Tab) 5 mg PO DAILY@0900 [facility] Last Admin: 09/01/20 08:10 Dose: 5 mg Documented by: Pregabalin (Pregabalin 50 Mg Cap) 50 mg PO BID [facility] Last Admin: 09/01/20 07:39 Dose: 50 mg Documented by: Prochlorperazine Maleate (Prochlorperazine 10 Mg Tab) 10 mg PO QID PRN PRN Reason: Nausea Senna/Docusate Sodium (Docusate Sodium/Sennosides 50-8.6 Mg Tab) 3 tab PO BID [facility] Last Admin: 09/01/20 07:39 Dose: 3 tab Documented by: Sodium Chloride (Sodium Chloride 0.9% 10 Ml Syringe) 10 ml FLUSH ASDIRECTED PRN PRN Reason: Keep Vein Open Discontinued Medications Apixaban (Apixaban 5 Mg Tab Pt Own) 10 mg PO BID [facility] Last Admin: 08/31/20 11:26 Dose: 10 mg Documented by: Fentanyl (Fentanyl 100 Mcg/Hr Transdermal Patch Pt Own) 100 mcg TRDERM Q72H [facility] Fentanyl (Fentanyl 75 Mcg/Hr Transdermal Patch Pt Own) 75 mcg TRDERM Q72H [facility] Fentanyl (Fentanyl 100 Mcg/Hr Transdermal Patch) 100 mcg TRDERM Q72H [facility] Last Admin: 09/01/20 08:46 Dose: Not Given Documented by: Fentanyl (Fentanyl 100 Mcg/Hr Transdermal Patch) 100 mcg TRDERM Q72H [facility] Last Admin: 08/31/20 15:20 Dose: Not Given Documented by: Furosemide (Furosemide 20 Mg Tab Pt Own) 20 mg PO DAILY [facility] Stop: 08/31/20 19:00 Last Admin: 08/31/20 11:25 Dose: 20 mg Documented by: Furosemide (Furosemide 20 Mg Tab) 10 mg PO DAILY [facility] Furosemide (Furosemide 40 Mg/4 Ml Vial) 40 mg IVPUSH ONETIME ONE Stop: 08/31/20 13:41 Last Admin: 08/31/20 14:00 Dose: 40 mg Documented by: Sodium Chloride (Normal Saline) 1,000 mls @ 50 mls/hr IV ASDIRECTED [facility] Last Admin: 08/31/20 11:33 Dose: 75 mls/hr Documented by: Lactulose (Lactulose 10 Gm/15 Ml Solution Pt Own) 10 gm PO BID PRN PRN Reason: Constipation Ondansetron 8 Mg (Tablet Pt Own*8) 0 mg PO BID@0700,1500 [facility] Last Admin: 08/30/20 15:46 Dose: Not Given Documented by: Non-Formulary Medication (Ondansetron) 8 mg PO BID PRN PRN Reason: Nausea Last Admin: 08/31/20 06:14 Dose: 8 mg Documented by: Pantoprazole Sodium (Pantoprazole 40 Mg Vial) 40 mg IVPUSH Q24H [facility] Last Admin: 08/31/20 11:38 Dose: 40 mg Documented by: Prednisone (Prednisone 5 Mg Tab Pt Own) 5 mg PO DAILY@0900 [facility] Last Admin: 08/31/20 11:40 Dose: 5 mg Documented by: Pregabalin (Pregabalin 50 Mg Cap Pt Own*8) 50 mg PO TID [facility] Last Admin: 08/30/20 14:28 Dose: 50 mg Documented by: Pregabalin (Pregabalin 50 Mg Cap) 50 mg PO BID [facility] Last Admin: 08/31/20 11:27 Dose: 50 mg Documented by: Prochlorperazine Maleate (Prochlorperazine 10 Mg Tab Pt Own*8) 10 mg PO QID PRN PRN Reason: Nausea - Exam Quality Assessment: Supplemental Oxygen General: Oriented, Other (drowsy) Neck: Supple Lungs: Decreased Breath Sounds Cardiovascular: Regular Rate, Regular Rhythm GI/Abdominal Exam: Normal Bowel Sounds, Soft, Distended Extremities: Pedal Edema (2-3+ pitting edema to thighs) Skin: Warm, Dry Neurological: No New Focal Deficit - Patient Data Lab Results Last 24 hrs: Laboratory Results - last 24 hr 09/01/20 09/01/20 Range/Units 05:11 05:11 WBC 64.1 H* (5.0-10.0) 10^3/uL RBC 2.04 L (4.00-5.50) 10^6/uL Hgb 7.2 L* (12.0-16.0) g/dL Hct 21.9 L (37.0-47.0) % MCV 107.4 H (82.0-94.0) fL MCH 35.3 H (27.0-32.0) pg MCHC 32.9 L (33.0-38.0) g/dL RDW Coeff of Lokesh 15.1 H (11.0-15.0) % Plt Count 95 L (150-400) 10^3/uL Neut % (Auto) 97.8 H (35-85) % Lymph % (Auto) 0.3 L (10-55) % [place] % (Auto) 1.7 (0-16) % Eos % (Auto) 0.2 (0-5) % Baso % (Auto) 0 (0-3) % Neut # (Auto) 62.72 H (1.80-7.00) 10^3/uL Lymph # (Auto) 0.21 L (1.00-4.80) 10^3/uL [place] # (Auto) 1.09 H (0.00-0.80) 10^3/uL Eos # (Auto) 0.10 (0.00-0.45) 10^3/uL Baso # (Auto) 0.01 10^3/uL Sodium 131 L (136-145) mEq/L Potassium 4.6 (3.5-5.0) mEq/L Chloride 98 (98-106) mEq/L Carbon Dioxide 19 L (21-32) mmol/L BUN 56 H (7-18) mg/dL Creatinine 1.9 H (0.6-1.0) mg/dL Est Cr Clr Drug Dosing 26.51 mL/min Estimated GFR (MDRD) 27 L (>=60) mL/min Glucose 77 (75-99) mg/dL Calcium 9.7 (8.4-10.1) mg/dL Result Diagrams: 09/01/20 05:11 09/01/20 05:11 Sepsis Event Note - Evaluation Sepsis Screening Result: No Definite Risk - Focused Exam Vital Signs: Vital Signs Temp Pulse Resp BP Pulse Ox 09/01/20 08:00 98.2 F 110 H 12 103/62 93 L 09/01/20 04:00 97.3 F 14 97/52 L 95 08/31/20 23:42 98.5 F 16 88/59 L 94 L - Problem List & Annotations (1) Uncontrolled pain SNOMED Code(s): 28270928855591189 Code(s): R52 - PAIN, UNSPECIFIED Status: Acute Priority: High Current Visit: Yes (2) Hypercalcemia of malignancy SNOMED Code(s): 01899989 Code(s): E83.52 - HYPERCALCEMIA Status: Resolved Priority: High Current Visit: Yes - Problem List Review Problem List Initiated/Reviewed/Updated: Yes - My Orders Last 24 Hours: My Active Orders 08/31/20 13:16 Albuterol [Ventolin HFA] 0 gm INH Q4H PRN 08/31/20 13:17 LORazepam [Ativan] 0.5 mg PO DAILY PRN 08/31/20 13:19 Lactulose [Cephulac] 10 gm PO BID PRN 08/31/20 13:23 Prochlorperazine [Compazine] 10 mg PO QID PRN 08/31/20 20:00 Apixaban [Eliquis] 10 mg PO BID 09/01/20 09:00 predniSONE 5 mg PO DAILY@0900 09/02/20 05:11 MAGNESIUM [CHEM] AM - Assessment Assessment:: Hypercalcemia - Plan Plan:: Dr. Morgan evaluated patient this morning and discussed prognosis with Georgina and her . Discussed the importance of controlling her pain and will have Toradol for as needed. Discussed chronic use and GI side effects with Eliquis. Calcium level is significantly improved today to 11.2. Will keep observation and repeat labs tomorrow. If any further pain may consider increasing Fentanyl patch to 2 - 100mcg patches as discussed with Dr. Morgan. Will use Toradol for break thru pain. 08/31/2020 Patient will be switched to acute care today. Plan for ultrasound of the abdomen, graphics edit technician out of the office today. Will get ultrasound on Thursday. Lasix 40mg IV today. Will start Lasix 40mg PO BID tomorrow. Dr. Morgan in room with patient and answered all of daughter's questions. Will continue with IV toradol for break thru pain. Calcium level has dropped back to normal limits today. Will d/c IV fluids at this time. CBC and BMP ordered for tomorrow. Will closely monitor. 09-01-2020 Patient drowsy, pain at a 5-6. IV Lasix started yesterday, had improved urine output after. WBC 64.1 today. Hgb 7.2, platelets 95. Creatinine stable at 1.9. Calcium 9.7. Will continue to monitor urine output, edema and pain. Repeat labs in am.
[2020-09-01] MEDS ORDERED: Bisacodyl 10 MG Supp RECTAL PRN (10:47)
[2020-09-01] MEDS: Ondansetron 4 MG Tab.DIS PO PRN (23:55)
[2020-09-02] MEDS: ACETAMINOPHEN PO SCH ×4 (02:05→14:22)
[2020-09-02] MEDS: OXYCODONE PO SCH ×4 (02:05→14:22)
[2020-09-02] MEDS: Pantoprazole 40 MG Vial IVPUSH SCH (07:34)
[2020-09-02] MEDS: predniSONE 5 MG Tab PO SCH (09:28)
[2020-09-02] MEDS: DRONABINOL 10 MG PO SCH (09:28)
[2020-09-02] MEDS: Furosemide 40 MG Tab PO SCH ×2 (09:28→16:05)
[2020-09-02] MEDS: Loratadine 10 MG Tab PO SCH (09:28)
[2020-09-02] MEDS: Pregabalin 50 MG Cap PO SCH ×2 (09:28→20:09)
[2020-09-02] MEDS: Apixaban 5 MG Tab PO SCH (09:28)
--- NOTE | 2020-09-02 12:39 | PCM.PN ---
- General Info Date of Service: 09/02/20 Admission Dx/Problem (Free Text): Hypercalcemia Subjective Update: Georgina is a 64 year old female who is seen in the ER yesterday afternoon per recommendations by [facility]. Patient was here for IV fluids per outpatient orders. Was having severe pain in her right shoulder and has had improvement with Toradol in the past. Was given an injection and had improvement of the pain. [facility] was contacted prior to receiving that order and due to her calcium levels, advised to be seen in the ER and evaluated for this. Patient had labs done on Thursday, Zometa was given as well as her chemo injection yesterday at [facility]. She had repeat levels yesterday and her calcium was still high. related that she has had 2 injections with the new chemo. She had increasing pain in her right shoulder over the last few months, meds have been adjusted multiple times. Has had considerable work up for this. They now feel her pain is referred pain is from her liver as she has lesions there now as well. NSAIDs have worked better for her than narcotics. She had been taking ibuprofen and was recently advised to use Aleve. On Thursday, staff at [facility] had noted incr eased swelling in her legs so felt further investigation of that should be done. Was found to have DVT in her right leg so was started on Eliquis. states now advised to not use NSAIDs. 08/30/2020 Patient is resting comfortably in her hospital bed. is present and states she has done really well with pain since getting the toradol injection. She asks if she can go home soon. She denies any complaints presently. 08/31/2020 Georgina is in good spirits this morning. She did have increased right shoulder discomfort and was given Toradol which is the only thing that seems to give her relief for break thru pain. Nursing staff have noticed swelling in her abdomen since yesterday and her legs. She admits to mild shortness of breath. is present and daughter is available via phone this morning. Daughter is concerned of her mother's discomfort and what they can do to help her with the pain as it seems when it gets severe nothing but NSAID's help it. They are concerned rita use they were told not to give any d/t being on blood thinner for DVT. 09-01-2020 Patient is quiet this am, drowsy. States pain at a 5/6. Is getting intermittent Toradol injections yet as still feels those are more beneficial and family is aware of the risk. Protonix was started yesterday for GI protection. Is still getting oxycodone scheduled every 4 hours. Abdomen still bloated. Feels pressure but feels unchanged since yesterday. Likely has ascites due to liver mets and given 2 days of IV fluids. Edema has increased in her legs, 2-3+ up to thighs. Denies increased shortness of breath since yesterday. Is on oxygen at 2 liters to maintain stats. Afebrile. Blood pressure stable. Appetite is poor. Has not had had a BM for about 9 days, declines having a suppository. 09-02-2020 Patient weak, drowsy. Inappropriate answers to questions this am. Around midnight, nurses assisting patient to bathroom and enroute while walking with walker, patient became very limp and weak. Was assisted in to bathroom, had large BM but very weak after. At 0600 this am, patient had large, loose incontinent stool. Dark brown in nature. Does arouse but confused. Stool occult checked this am and positive. Family meeting called due to declining status and lab values this am. Hemo globin down to 6.6, creatinine up to 2.8, potassium 5.2, calcium increasing. Informed family of all results, positive occult stool and current status. Discussed what further goals and treatment plans they would like. Patient herself when asked about transfusions is confused. Family states primary goal is to keep patient comfortable. Discussed use of Toradol again with Eliquis and now concerns with possible area of GI bleeding. Patient recently did switch to DNR status. They voice that not concerned about blood clot and would like her Eliquis stopped as would prefer to continue the Toradol to help best with her pain. Is eating very little. Dehydrated and low hemoglobin. Would like to switch to comfort cares, stop all labs and unnecessary testing. Continue with current meds, switch to IV if needed for pain control. No transfusions at this time. Discussed previous goal of returning home and and children do not feel they could care for her in the state she is currently here and would like her to remain here with comfort measures only. Functional Status: Reports: Pain Controlled. Denies: Tolerating Diet, Ambulating - Review of Systems General: Reports: Weakness, Fatigue, Malaise. Denies: Fever HEENT: Reports: No Symptoms Pulmonary: Reports: Shortness of Breath. Denies: Cough Cardiovascular: Reports: Edema. Denies: Chest Pain Gastrointestinal: Reports: Melena. Denies: Abdominal Pain, Nausea, Vomiting Genitourinary: Reports: Incontinence Musculoskeletal: Reports: Shoulder Pain, Back Pain Skin: Reports: Pallor Neurological: Reports: Weakness - Patient Data Vitals - Most Recent: Last Vital Signs Temp 99 F 09/02/20 08:00 Pulse 113 H 09/02/20 08:00 Resp 12 09/02/20 08:00 BP 85/42 L 09/02/20 08:00 Pulse Ox 95 09/02/20 08:00 Weight - Most Recent: 137 lb 4.8 oz I&O - Last 24 Hours: Intake & Output 09/01/20 09/02/20 09/02/20 22:59 06:59 14:59 Intake Total 200 300 Output Total 300 200 Balance -100 100 Lab Results Last 24 Hours: Laboratory Results - last 24 hr 09/01/20 09/02/20 09/02/20 Range/Units 23:58 05:11 05:11 WBC 38.7 H* (5.0-10.0) 10^3/uL RBC 1.88 L (4.00-5.50) 10^6/uL Hgb 6.6 L* (12.0-16.0) g/dL Hct 20.4 L (37.0-47.0) % MCV 108.5 H (82.0-94.0) fL MCH 35.1 H (27.0-32.0) pg MCHC 32.4 L (33.0-38.0) g/dL RDW Coeff of Lokesh 15.0 (11.0-15.0) % Plt Count 82 L (150-400) 10^3/uL Neut % (Auto) 98.8 H (35-85) % Lymph % (Auto) 0.3 L (10-55) % [place] % (Auto) 0.8 (0-16) % Eos % (Auto) 0.1 (0-5) % Baso % (Auto) 0 (0-3) % Neut # (Auto) 38.24 H (1.80-7.00) 10^3/uL Lymph # (Auto) 0.13 L (1.00-4.80) 10^3/uL [place] # (Auto) 0.31 (0.00-0.80) 10^3/uL Eos # (Auto) 0.05 (0.00-0.45) 10^3/uL Baso # (Auto) 0.01 10^3/uL Sodium 129 L (136-145) mEq/L Potassium 5.2 H (3.5-5.0) mEq/L Chloride 99 (98-106) mEq/L Carbon Dioxide 21 (21-32) mmol/L BUN 66 H (7-18) mg/dL Creatinine 2.8 H* (0.6-1.0) mg/dL Est Cr Clr Drug Dosing 17.99 mL/min Estimated GFR (MDRD) 17 L (>=60) mL/min Glucose 107 H D (75-99) mg/dL POC Glucose 124 H (75-105) mg/dL Calcium 10.4 H (8.4-10.1) mg/dL Magnesium 2.4 (1.8-2.4) mg/dL Lawrence Results Last 24 Hours: Microbiology 09/02/20 07:32 Occult Blood - Preliminary Stool / Feces Med Orders - Current: Current Medications Acetaminophen (Acetaminophen 500 Mg Tab) 1,000 mg PO BID PRN PRN Reason: Pain Albuterol (Albuterol 8 Gm Inhaler) 0 gm INH Q4H PRN PRN Reason: Shortness of Breath Bisacodyl (Bisacodyl 10 Mg Supp) 10 mg RECTAL DAILY PRN PRN Reason: Constipation Fentanyl (Fentanyl 50 Mcg/Hr Transdermal Patch) 100 mcg TRDERM Q72H ON LICENSE OF [facility] Last Admin: 08/31/20 15:17 Dose: 100 mcg Documented by: Fentanyl (Fentanyl 50 Mcg/Hr Transdermal Patch) 100 mcg TRDERM Q72H ON LICENSE OF [facility] Last Admin: 09/01/20 08:45 Dose: 100 mcg Documented by: Furosemide (Furosemide 40 Mg Tab) 40 mg PO BIDDIURETIC ON LICENSE OF [facility] Last Admin: 09/02/20 09:28 Dose: Not Given Documented by: Hydromorphone HCl (Hydromorphone 1 Mg/Ml Syringe) 2 mg IVPUSH Q2H PRN PRN Reason: Pain (severe 7-10) Ketorolac Tromethamine (Ketorolac 30 Mg/Ml Sdv) 15 mg IVPUSH Q6H PRN PRN Reason: Pain Stop: 09/03/20 17:57 Last Admin: 09/01/20 02:09 Dose: 15 mg Documented by: Lactulose (Lactulose 10 Gm/15 Ml Solution) 10 gm PO BID PRN PRN Reason: Constipation Last Admin: 09/01/20 19:58 Dose: 10 gm Documented by: Loratadine (Loratadine 10 Mg Tab) 10 mg PO DAILY@0900 ON LICENSE OF [facility] Last Admin: 09/02/20 09:28 Dose: Not Given Documented by: Lorazepam (Lorazepam 0.5 Mg Tab) 0.5 mg PO DAILY PRN PRN Reason: Anxiety Dronabinol 10 Mg (Capsule Pt Own) 0 mg PO BID@0900,1900 ON LICENSE OF [facility] Last Admin: 09/02/20 09:28 Dose: Not Given Documented by: Acetaminophen/Oxycodone 325-10 Mg Tab Pt Own 0 each PO Q4H ON LICENSE OF [facility] Last Admin: 09/02/20 06:54 Dose: 1 each Documented by: Ondansetron HCl (Ondansetron 4 Mg/2 Ml Sdv) 4 mg IVPUSH Q6H PRN PRN Reason: Nausea Last Admin: 09/01/20 08:10 Dose: 4 mg Documented by: Ondansetron HCl (Ondansetron 4 Mg Tab.Dis) 8 mg PO BID PRN PRN Reason: Nausea Last Admin: 09/01/20 23:55 Dose: 8 mg Documented by: Pantoprazole Sodium (Pantoprazole 40 Mg Vial) 40 mg IVPUSH Q24H ON LICENSE OF [facility] Last Admin: 09/02/20 07:34 Dose: 40 mg Documented by: Prednisone (Prednisone 5 Mg Tab) 5 mg PO DAILY@0900 ON LICENSE OF [facility] Last Admin: 09/02/20 09:28 Dose: Not Given Documented by: Pregabalin (Pregabalin 50 Mg Cap) 50 mg PO BID ON LICENSE OF [facility] Last Admin: 09/02/20 09:28 Dose: Not Given Documented by: Prochlorperazine Maleate (Prochlorperazine 10 Mg Tab) 10 mg PO QID PRN PRN Reason: Nausea Sodium Chloride (Sodium Chloride 0.9% 10 Ml Syringe) 10 ml FLUSH ASDIRECTED PRN PRN Reason: Keep Vein Open Discontinued Medications Apixaban (Apixaban 5 Mg Tab Pt Own) 10 mg PO BID ON LICENSE OF [facility] Last Admin: 08/31/20 11:26 Dose: 10 mg Documented by: Apixaban (Apixaban 5 Mg Tab) 10 mg PO BID ON LICENSE OF [facility] Last Admin: 09/02/20 09:28 Dose: Not Given Documented by: Fentanyl (Fentanyl 100 Mcg/Hr Transdermal Patch Pt Own) 100 mcg TRDERM Q72H ON LICENSE OF [facility] Fentanyl (Fentanyl 75 Mcg/Hr Transdermal Patch Pt Own) 75 mcg TRDERM Q72H ON LICENSE OF [facility] Fentanyl (Fentanyl 100 Mcg/Hr Transdermal Patch) 100 mcg TRDERM Q72H ON LICENSE OF [facility] Last Admin: 09/01/20 08:46 Dose: Not Given Documented by: Fentanyl (Fentanyl 100 Mcg/Hr Transdermal Patch) 100 mcg TRDERM Q72H ON LICENSE OF [facility] Last Admin: 08/31/20 15:20 Dose: Not Given Documented by: Furosemide (Furosemide 20 Mg Tab Pt Own) 20 mg PO DAILY ON LICENSE OF [facility] Stop: 08/31/20 19:00 Last Admin: 08/31/20 11:25 Dose: 20 mg Documented by: Furosemide (Furosemide 20 Mg Tab) 10 mg PO DAILY ON LICENSE OF [facility] Furosemide (Furosemide 40 Mg/4 Ml Vial) 40 mg IVPUSH ONETIME ONE Stop: 08/31/20 13:41 Last Admin: 08/31/20 14:00 Dose: 40 mg Documented by: Sodium Chloride (Normal Saline) 1,000 mls @ 50 mls/hr IV ASDIRECTED ON LICENSE OF [facility] Last Admin: 08/31/20 11:33 Dose: 75 mls/hr Documented by: Lactulose (Lactulose 10 Gm/15 Ml Solution Pt Own) 10 gm PO BID PRN PRN Reason: Constipation Ondansetron 8 Mg (Tablet Pt Own*8) 0 mg PO BID@0700,1500 ON LICENSE OF [facility] Last Admin: 08/30/20 15:46 Dose: Not Given Documented by: Non-Formulary Medication (Ondansetron) 8 mg PO BID PRN PRN Reason: Nausea Last Admin: 08/31/20 06:14 Dose: 8 mg Documented by: Pantoprazole Sodium (Pantoprazole 40 Mg Vial) 40 mg IVPUSH Q24H ON LICENSE OF [facility] Last Admin: 08/31/20 11:38 Dose: 40 mg Documented by: Prednisone (Prednisone 5 Mg Tab Pt Own) 5 mg PO DAILY@0900 ON LICENSE OF [facility] Last Admin: 08/31/20 11:40 Dose: 5 mg Documented by: Pregabalin (Pregabalin 50 Mg Cap Pt Own*8) 50 mg PO TID ON LICENSE OF [facility] Last Admin: 08/30/20 14:28 Dose: 50 mg Documented by: Pregabalin (Pregabalin 50 Mg Cap) 50 mg PO BID ON LICENSE OF [facility] Last Admin: 08/31/20 11:27 Dose: 50 mg Documented by: Prochlorperazine Maleate (Prochlorperazine 10 Mg Tab Pt Own*8) 10 mg PO QID PRN PRN Reason: Nausea Senna/Docusate Sodium (Docusate Sodium/Sennosides 50-8.6 Mg Tab) 3 tab PO BID ON LICENSE OF [facility] Last Admin: 09/01/20 19:44 Dose: 3 tab Documented by: - Exam Quality Assessment: Supplemental Oxygen General: Lethargic Neck: Supple Lungs: Decreased Breath Sounds, Crackles Cardiovascular: Regular Rate, Regular Rhythm GI/Abdominal Exam: Normal Bowel Sounds, Soft, No Distention (abdomen much less distended now after bowel movements) Extremities: Pedal Edema (2-3 edema yet up to thighs) Skin: Warm, Dry - Patient Data Lab Results Last 24 hrs: Laboratory Results - last 24 hr 09/01/20 09/02/20 09/02/20 Range/Units 23:58 05:11 05:11 WBC 38.7 H* (5.0-10.0) 10^3/uL RBC 1.88 L (4.00-5.50) 10^6/uL Hgb 6.6 L* (12.0-16.0) g/dL Hct 20.4 L (37.0-47.0) % MCV 108.5 H (82.0-94.0) fL MCH 35.1 H (27.0-32.0) pg MCHC 32.4 L (33.0-38.0) g/dL RDW Coeff of [place]okesh 15.0 (11.0-15.0) % Plt Count 82 L (150-400) 10^3/uL Neut % (Auto) 98.8 H (35-85) % Lymph % (Auto) 0.3 L (10-55) % [place] % (Auto) 0.8 (0-16) % Eos % (Auto) 0.1 (0-5) % Baso % (Auto) 0 (0-3) % Neut # (Auto) 38.24 H (1.80-7.00) 10^3/uL Lymph # (Auto) 0.13 L (1.00-4.80) 10^3/uL [place] # (Auto) 0.31 (0.00-0.80) 10^3/uL Eos # (Auto) 0.05 (0.00-0.45) 10^3/uL Baso # (Auto) 0.01 10^3/uL Sodium 129 L (136-145) mEq/L Potassium 5.2 H (3.5-5.0) mEq/L Chloride 99 (98-106) mEq/L Carbon Dioxide 21 (21-32) mmol/L BUN 66 H (7-18) mg/dL Creatinine 2.8 H* (0.6-1.0) mg/dL Est Cr Clr Drug Dosing 17.99 mL/min Estimated GFR (MDRD) 17 L (>=60) mL/min Glucose 107 H D (75-99) mg/dL POC Glucose 124 H (75-105) mg/dL Calcium 10.4 H (8.4-10.1) mg/dL Magnesium 2.4 (1.8-2.4) mg/dL Result Diagrams: 09/02/20 05:11 09/02/20 05:11 [place] Results Last 24 hrs: Microbiology 09/02/20 07:32 Occult Blood - Preliminary Stool / Feces Sepsis Event Note - Evaluation Sepsis Screening Result: No Definite Risk - Focused Exam Vital Signs: Vital Signs Temp Pulse Resp BP Pulse Ox 09/02/20 08:00 99 F 113 H 12 85/42 L 95 09/02/20 04:00 98.0 F 18 87/59 L 95 - Problem List & Annotations (1) Uncontrolled pain SNOMED Code(s): 42156304086361050 Code(s): R52 - PAIN, UNSPECIFIED Status: Acute Priority: High Current Visit: Yes (2) Hypercalcemia of malignancy SNOMED Code(s): 89646467 Code(s): E83.52 - HYPERCALCEMIA Status: Resolved Priority: High Current Visit: Yes - Problem List Review Problem List Initiated/Reviewed/Updated: Yes - My Orders Last 24 Hours: My Active Orders 09/02/20 07:32 OCCULT BLOOD SCREEN [OP] Routine 09/02/20 09:51 Comfort Measures [OM.PC] Routine 09/02/20 09:51 Resuscitation Status Routine - Assessment Assessment:: Hypercalcemia - Plan Plan:: Dr. Morgan evaluated patient this morning and discussed prognosis with Georgina and her . Discussed the importance of controlling her pain and will have Toradol for as needed. Discussed chronic use and GI side effects with Eliquis. Calcium level is significantly improved today to 11.2. Will keep observation and repeat labs tomorrow. If any further pain may consider increasing Fentanyl patch to 2 - 100mcg patches as discussed with Dr. Morgan. Will use Toradol for break thru pain. 08/31/2020 Patient will be switched to acute care today. Plan for ultrasound of the abdomen, senior director of [employer] out of the office today. Will get ultrasound on Thursday. Lasix 40mg IV today. Will start Lasix 40mg PO BID tomorrow. Dr. Morgan in room with patient and answered all of daughter's questions. Will continue with IV toradol for break thru pain. Calcium level has dropped back to normal limits today. Will d/c IV fluids at this time. CBC and BMP ordered for tomorrow. Will closely monitor. 09-01-2020 Patient drowsy, pain at a 5-6. IV Lasix started yesterday, had improved urine output after. WBC 64.1 today. Hgb 7.2, platelets 95. Creatinine stable at 1.9. Calcium 9.7. Will continue to monitor urine output, edema and pain. Repeat labs in am 09-02-2020 See subjective history. Patient switched to comfort cares. No transfusions, blood draws. Consider stopping oral meds at some point if unable to tolerate. Pain meds as ordered. Stop Eliquis.
[2020-09-02] MEDS: Ketorolac 30 MG/ML SDV IVPUSH PRN ×2 (14:28→22:34)
[2020-09-03] MEDS: Ondansetron 4 MG/2 ML SDV IVPUSH PRN ×2 (05:01→21:35)
[2020-09-03] MEDS: Ketorolac 30 MG/ML SDV IVPUSH PRN ×4 (06:31→21:36)
[2020-09-03] MEDS: Pantoprazole 40 MG Vial IVPUSH SCH (08:13)
[2020-09-03] MEDS: Pregabalin 50 MG Cap PO SCH ×2 (08:50→21:35)
[2020-09-03] MEDS: Furosemide 40 MG Tab PO SCH (08:50)
[2020-09-03] MEDS: predniSONE 5 MG Tab PO SCH (08:50)
[2020-09-03] MEDS ORDERED: DRONABINOL 10 MG PO PRN (11:30)
[2020-09-03] MEDS: Lactulose Soln 10 GM/15 ML 30 ML UD Cup PO SCH (12:26)
[2020-09-03] MEDS ORDERED: Sodium Chloride 0.9% 500 ML IV PRN (15:30)
[2020-09-03] MEDS: fentaNYL 50 MCG/HR Transdermal Patch TRDERM SCH (15:58)
--- NOTE | 2020-09-03 21:11 | PCM.PN ---
- General Info Date of Service: 09/03/20 Admission Dx/Problem (Free Text): Hypercalcemia Subjective Update: Georgina is a 64 year old female who is seen in the ER yesterday afternoon per recommendations by [facility]. Patient was here for IV fluids per outpatient orders. Was having severe pain in her right shoulder and has had improvement with Toradol in the past. Was given an injection and had improvement of the pain. [facility] was contacted prior to receiving that order and due to her calcium levels, advised to be seen in the ER and evaluated for this. Patient had labs done on Thursday, Zometa was given as well as her chemo injection yesterday at [facility]. She had repeat levels yesterday and her calcium was still high. related that she has had 2 injections with the new chemo. She had increasing pain in her right shoulder over the last few months, meds have been adjusted multiple times. Has had considerable work up for this. They now feel her pain is referred pain is from her liver as she has lesions there now as well. NSAIDs have worked better for her than narcotics. She had been taking ibuprofen and was recently advised to use Aleve. On Thursday, staff at [facility] had noted incr eased swelling in her legs so felt further investigation of that should be done. Was found to have DVT in her right leg so was started on Eliquis. states now advised to not use NSAIDs. 08/30/2020 Patient is resting comfortably in her hospital bed. is present and states she has done really well with pain since getting the toradol injection. She asks if she can go home soon. She denies any complaints presently. 08/31/2020 Georgina is in good spirits this morning. She did have increased right shoulder discomfort and was given Toradol which is the only thing that seems to give her relief for break thru pain. Nursing staff have noticed swelling in her abdomen since yesterday and her legs. She admits to mild shortness of breath. is present and daughter is available via phone this morning. Daughter is concerned of her mother's discomfort and what they can do to help her with the pain as it seems when it gets severe nothing but NSAID's help it. They are concerned rita use they were told not to give any d/t being on blood thinner for DVT. 09-01-2020 Patient is quiet this am, drowsy. States pain at a 5/6. Is getting intermittent Toradol injections yet as still feels those are more beneficial and family is aware of the risk. Protonix was started yesterday for GI protection. Is still getting oxycodone scheduled every 4 hours. Abdomen still bloated. Feels pressure but feels unchanged since yesterday. Likely has ascites due to liver mets and given 2 days of IV fluids. Edema has increased in her legs, 2-3+ up to thighs. Denies increased shortness of breath since yesterday. Is on oxygen at 2 liters to maintain stats. Afebrile. Blood pressure stable. Appetite is poor. Has not had had a BM for about 9 days, declines having a suppository. 09-02-2020 Patient weak, drowsy. Inappropriate answers to questions this am. Around midnight, nurses assisting patient to bathroom and enroute while walking with walker, patient became very limp and weak. Was assisted in to bathroom, had large BM but very weak after. At 0600 this am, patient had large, loose incontinent stool. Dark brown in nature. Does arouse but confused. Stool occult checked this am and positive. Family meeting called due to declining status and lab values this am. Hemo globin down to 6.6, creatinine up to 2.8, potassium 5.2, calcium increasing. Informed family of all results, positive occult stool and current status. Discussed what further goals and treatment plans they would like. Patient herself when asked about transfusions is confused. Family states primary goal is to keep patient comfortable. Discussed use of Toradol again with Eliquis and now concerns with possible area of GI bleeding. Patient recently did switch to DNR status. They voice that not concerned about blood clot and would like her Eliquis stopped as would prefer to continue the Toradol to help best with her pain. Is eating very little. Dehydrated and low hemoglobin. Would like to switch to comfort cares, stop all labs and unnecessary testing. Continue with current meds, switch to IV if needed for pain control. No transfusions at this time. Discussed previous goal of returning home and and children do not feel they could care for her in the state she is currently here and would like her to remain here with comfort measures only. 09/03/2020 Georgina appears to be doing a lot better this morning. is present and states she looks a lot better this morning as compared to this weekend. Patient is conversing without difficulty. Patient continues to be extremely weak and needs assistance to the bathroom. Patient has not had any further incontinent stools since yesterday. D/t patients initial decline over the weekend it was decided via family to keep under comfort measures. Today, again she is doing better. Dr. Morgan did consult with family this morning and requested to repeat laboratory work as she has been anemic with last Hgb being 6.8. Pain has been tolerable with Toradol injections. She is complaining of posterior scapular pain this morning. Brother is present as well this morning. - Review of Systems General: Reports: Weakness, Fatigue HEENT: Reports: No Symptoms Pulmonary: Reports: No Symptoms Cardiovascular: Reports: No Symptoms Gastrointestinal: Reports: Abdominal Pain. Denies: Nausea, Vomiting Genitourinary: Reports: No Symptoms Musculoskeletal: Reports: Shoulder Pain, Back Pain Neurological: Reports: Confusion. Denies: Headache Psychiatric: Reports: No Symptoms - Patient Data Vitals - Most Recent: Last Vital Signs Temp 98.1 F 09/03/20 19:44 Pulse 112 H 09/03/20 19:44 Resp 20 09/03/20 19:44 BP 110/50 L 09/03/20 19:44 Pulse Ox 98 09/03/20 19:44 Weight - Most Recent: 137 lb 4.8 oz I&O - Last 24 Hours: Intake & Output 09/03/20 09/03/20 09/03/20 06:59 14:59 22:59 Intake Total 0 Balance 0 Lab Results Last 24 Hours: Laboratory Results - last 24 hr 09/03/20 09/03/20 09/03/20 Range/Units 11:16 11:16 13:52 WBC 31.5 H* (5.0-10.0) 10^3/uL RBC 1.76 L (4.00-5.50) 10^6/uL Hgb 6.1 L* (12.0-16.0) g/dL Hct 18.5 L* (37.0-47.0) % MCV 105.1 H (82.0-94.0) fL MCH 34.7 H (27.0-32.0) pg MCHC 33.0 (33.0-38.0) g/dL RDW Coeff of [place]okes[place] 14.7 (11.0-15.0) % Plt Count 66 L (150-400) 10^3/uL Neut % (Auto) 96.5 H (35-85) % Lymph % (Auto) 0.4 L (10-55) % [place] % (Auto) 2.9 (0-16) % Eos % (Auto) 0.2 (0-5) % Baso % (Auto) 0 (0-3) % Neut # (Auto) 30.43 H (1.80-7.00) 10^3/uL Lymph # (Auto) 0.13 L (1.00-4.80) 10^3/uL [place] # (Auto) 0.92 H (0.00-0.80) 10^3/uL Eos # (Auto) 0.05 (0.00-0.45) 10^3/uL Baso # (Auto) 0.01 10^3/uL Sodium 129 L (136-145) mEq/L Potassium 4.7 (3.5-5.0) mEq/L Chloride 97 L (98-106) mEq/L Carbon Dioxide 21 (21-32) mmol/L BUN 73 H* (7-18) mg/dL Creatinine 2.3 H (0.6-1.0) mg/dL Est Cr Clr Drug Dosing 21.90 mL/min Estimated GFR (MDRD) 21 L (>=60) mL/min Glucose 120 H (75-99) mg/dL Calcium 9.8 (8.4-10.1) mg/dL Total Bilirubin 0.3 (0.0-1.0) mg/dL AST 63 H (15-37) U/L ALT 44 (12-78) U/L Alkaline Phosphatase 559 H (46-116) U/L Total Protein 5.1 L (6.4-8.2) g/dL Albumin 2.0 L (3.4-5.0) g/dL Blood Type A POSITIVE Gel Antibody Screen Negative Crossmatch See Detail Med Orders - Current: Current Medications Albuterol (Albuterol 8 Gm Inhaler) 0 gm INH Q4H PRN PRN Reason: Shortness of Breath Bisacodyl (Bisacodyl 10 Mg Supp) 10 mg RECTAL DAILY PRN PRN Reason: Constipation Fentanyl (Fentanyl 50 Mcg/Hr Transdermal Patch) 100 mcg TRDERM Q72H [facility] Last Admin: 09/03/20 15:58 Dose: 100 mcg Documented by: Fentanyl (Fentanyl 50 Mcg/Hr Transdermal Patch) 100 mcg TRDERM Q72H [facility] Last Admin: 09/01/20 08:45 Dose: 100 mcg Documented by: Furosemide (Furosemide 40 Mg Tab) 40 mg PO DAILY [facility] Hydromorphone HCl (Hydromorphone 1 Mg/Ml Syringe) 2 mg IVPUSH Q2H PRN PRN Reason: Pain (severe 7-10) Sodium Chloride (Normal Saline) 500 mls @ 50 mls/hr IV ASDIRECTED PRN PRN Reason: REACTION TO BLOOD TRANSFUSION Last Admin: 09/03/20 15:43 Dose: 50 mls/hr Documented by: Ketorolac Tromethamine (Ketorolac 30 Mg/Ml Sdv) 15 - 30 mg IVPUSH Q6H PRN PRN Reason: Abdominal Pain Stop: 09/08/20 20:34 Lactulose (Lactulose Soln 10 Gm/15 Ml 30 Ml Ud Cup) 10 gm PO BID [facility] Last Admin: 09/03/20 12:26 Dose: 10 gm Documented by: Lorazepam (Lorazepam 0.5 Mg Tab) 0.5 mg PO DAILY PRN PRN Reason: Anxiety Dronabinol 10mg (Capsule Pt Own) 0 tab PO BID@0900,1900 PRN PRN Reason: Nausea Acetaminophen/Oxycodone 325/10mg Pt Own 0 each PO Q4H PRN PRN Reason: Pain Ondansetron HCl (Ondansetron 4 Mg/2 Ml Sdv) 4 mg IVPUSH Q6H PRN PRN Reason: Nausea Last Admin: 09/03/20 05:01 Dose: 4 mg Documented by: Ondansetron HCl (Ondansetron 4 Mg Tab.Dis) 8 mg PO BID PRN PRN Reason: Nausea Last Admin: 09/01/20 23:55 Dose: 8 mg Documented by: Pantoprazole Sodium (Pantoprazole 40 Mg Vial) 40 mg IVPUSH Q24H [facility] Last Admin: 09/03/20 08:13 Dose: 40 mg Documented by: Prednisone (Prednisone 5 Mg Tab) 5 mg PO DAILY@0900 [facility] Last Admin: 09/03/20 08:50 Dose: Not Given Documented by: Pregabalin (Pregabalin 50 Mg Cap) 50 mg PO BID [facility] Last Admin: 09/03/20 08:50 Dose: Not Given Documented by: Prochlorperazine Maleate (Prochlorperazine 10 Mg Tab) 10 mg PO QID PRN PRN Reason: Nausea Sodium Chloride (Sodium Chloride 0.9% 10 Ml Syringe) 10 ml FLUSH ASDIRECTED PRN PRN Reason: Keep Vein Open Discontinued Medications Acetaminophen (Acetaminophen 500 Mg Tab) 1,000 mg PO BID PRN PRN Reason: Pain Apixaban (Apixaban 5 Mg Tab Pt Own) 10 mg PO BID [facility] Last Admin: 08/31/20 11:26 Dose: 10 mg Documented by: Apixaban (Apixaban 5 Mg Tab) 10 mg PO BID [facility] Last Admin: 09/02/20 09:28 Dose: Not Given Documented by: Fentanyl (Fentanyl 100 Mcg/Hr Transdermal Patch Pt Own) 100 mcg TRDERM Q72H [facility] Fentanyl (Fentanyl 75 Mcg/Hr Transdermal Patch Pt Own) 75 mcg TRDERM Q72H [facility] Fentanyl (Fentanyl 100 Mcg/Hr Transdermal Patch) 100 mcg TRDERM Q72H [facility] Last Admin: 09/01/20 08:46 Dose: Not Given Documented by: Fentanyl (Fentanyl 100 Mcg/Hr Transdermal Patch) 100 mcg TRDERM Q72H [facility] Last Admin: 08/31/20 15:20 Dose: Not Given Documented by: Furosemide (Furosemide 20 Mg Tab Pt Own) 20 mg PO DAILY [facility] Stop: 08/31/20 19:00 Last Admin: 08/31/20 11:25 Dose: 20 mg Documented by: Furosemide (Furosemide 20 Mg Tab) 10 mg PO DAILY [facility] Furosemide (Furosemide 40 Mg Tab) 40 mg PO BIDDIURETIC [facility] Last Admin: 09/03/20 08:50 Dose: Not Given Documented by: Furosemide (Furosemide 40 Mg/4 Ml Vial) 40 mg IVPUSH ONETIME ONE Stop: 08/31/20 13:41 Last Admin: 08/31/20 14:00 Dose: 40 mg Documented by: Sodium Chloride (Normal Saline) 1,000 mls @ 50 mls/hr IV ASDIRECTED [facility] Last Admin: 08/31/20 11:33 Dose: 75 mls/hr Documented by: Ketorolac Tromethamine (Ketorolac 30 Mg/Ml Sdv) 15 mg IVPUSH Q6H PRN PRN Reason: Pain Stop: 09/03/20 17:57 Last Admin: 09/03/20 06:31 Dose: 15 mg Documented by: Ketorolac Tromethamine (Ketorolac 30 Mg/Ml Sdv) 15 - 30 mg IVPUSH Q6H PRN PRN Reason: Pain Stop: 09/03/20 17:57 Last Admin: 09/03/20 15:41 Dose: 30 mg Documented by: Lactulose (Lactulose 10 Gm/15 Ml Solution Pt Own) 10 gm PO BID PRN PRN Reason: Constipation Lactulose (Lactulose 10 Gm/15 Ml Solution) 10 gm PO BID PRN PRN Reason: Constipation Last Admin: 09/01/20 19:58 Dose: 10 gm Documented by: Loratadine (Loratadine 10 Mg Tab) 10 mg PO DAILY@0900 [facility] Last Admin: 09/02/20 09:28 Dose: Not Given Documented by: Dronabinol 10 Mg (Capsule Pt Own) 0 mg PO BID@0900,1900 [facility] Last Admin: 09/02/20 09:28 Dose: Not Given Documented by: Ondansetron 8 Mg (Tablet Pt Own*8) 0 mg PO BID@0700,1500 [facility] Last Admin: 08/30/20 15:46 Dose: Not Given Documented by: Acetaminophen/Oxycodone 325-10 Mg Tab Pt Own 0 each PO Q4H [facility] Last Admin: 09/02/20 14:22 Dose: Not Given Documented by: Non-Formulary Medication (Ondansetron) 8 mg PO BID PRN PRN Reason: Nausea Last Admin: 08/31/20 06:14 Dose: 8 mg Documented by: Pantoprazole Sodium (Pantoprazole 40 Mg Vial) 40 mg IVPUSH Q24H [facility] Last Admin: 08/31/20 11:38 Dose: 40 mg Documented by: Prednisone (Prednisone 5 Mg Tab Pt Own) 5 mg PO DAILY@0900 [facility] Last Admin: 08/31/20 11:40 Dose: 5 mg Documented by: Pregabalin (Pregabalin 50 Mg Cap Pt Own*8) 50 mg PO TID [facility] Last Admin: 08/30/20 14:28 Dose: 50 mg Documented by: Pregabalin (Pregabalin 50 Mg Cap) 50 mg PO BID [facility] Last Admin: 08/31/20 11:27 Dose: 50 mg Documented by: Prochlorperazine Maleate (Prochlorperazine 10 Mg Tab Pt Own*8) 10 mg PO QID PRN PRN Reason: Nausea Senna/Docusate Sodium (Docusate Sodium/Sennosides 50-8.6 Mg Tab) 3 tab PO BID [facility] Last Admin: 09/01/20 19:44 Dose: 3 tab Documented by: - Exam General: Alert, Cooperative, No Acute Distress Lungs: Normal Respiratory Effort, Decreased Breath Sounds Cardiovascular: Regular Rate, Regular Rhythm, No Murmurs GI/Abdominal Exam: Normal Bowel Sounds, Soft, Non-Tender Extremities: Pedal Edema, Slow Capillary Refill (Left lower extremity worse on left than right) Skin: Warm, Dry, Intact Neurological: No New Focal Deficit Psy/Mental Status: Alert - Patient Data Lab Results Last 24 hrs: Laboratory Results - last 24 hr 09/03/20 09/03/20 09/03/20 Range/Units 11:16 11:16 13:52 WBC 31.5 H* (5.0-10.0) 10^3/uL RBC 1.76 L (4.00-5.50) 10^6/uL Hgb 6.1 L* (12.0-16.0) g/dL Hct 18.5 L* (37.0-47.0) % MCV 105.1 H (82.0-94.0) fL MCH 34.7 H (27.0-32.0) pg MCHC 33.0 (33.0-38.0) g/dL RDW Coeff of [place] 14.7 (11.0-15.0) % Plt Count 66 L (150-400) 10^3/uL Neut % (Auto) 96.5 H (35-85) % Lymph % (Auto) 0.4 L (10-55) % [place] % (Auto) 2.9 (0-16) % Eos % (Auto) 0.2 (0-5) % Baso % (Auto) 0 (0-3) % Neut # (Auto) 30.43 H (1.80-7.00) 10^3/uL Lymph # (Auto) 0.13 L (1.00-4.80) 10^3/uL [place] # (Auto) 0.92 H (0.00-0.80) 10^3/uL Eos # (Auto) 0.05 (0.00-0.45) 10^3/uL Baso # (Auto) 0.01 10^3/uL Sodium 129 L (136-145) mEq/L Potassium 4.7 (3.5-5.0) mEq/L Chloride 97 L (98-106) mEq/L Carbon Dioxide 21 (21-32) mmol/L BUN 73 H* (7-18) mg/dL Creatinine 2.3 H (0.6-1.0) mg/dL Est Cr Clr Drug Dosing 21.90 mL/min Estimated GFR (MDRD) 21 L (>=60) mL/min Glucose 120 H (75-99) mg/dL Calcium 9.8 (8.4-10.1) mg/dL Total Bilirubin 0.3 (0.0-1.0) mg/dL AST 63 H (15-37) U/L ALT 44 (12-78) U/L Alkaline Phosphatase 559 H (46-116) U/L Total Protein 5.1 L (6.4-8.2) g/dL Albumin 2.0 L (3.4-5.0) g/dL Blood Type A POSITIVE Gel Antibody Screen Negative Crossmatch See Detail Result Diagrams: 09/03/20 11:16 09/03/20 11:16 Sepsis Event Note - Evaluation Sepsis Screening Result: No Definite Risk - Focused Exam Vital Signs: Vital Signs Temp Pulse Resp BP Pulse Ox 09/03/20 19:44 98.1 F 112 H 20 110/50 L 98 09/03/20 19:00 97.8 F 107 H 18 102/53 L 09/03/20 16:15 97.0 F 114 H 16 102/53 L 98 - Problem List & Annotations (1) Hypercalcemia of malignancy SNOMED Code(s): 56885193 Code(s): E83.52 - HYPERCALCEMIA Status: Resolved Priority: High Current Visit: Yes (2) Lung cancer metastatic to bone SNOMED Code(s): 18861866 Code(s): C34.90 - MALIGNANT NEOPLASM OF UNSP PART OF UNSP BRONCHUS OR LUNG; C79.51 - SECONDARY MALIGNANT NEOPLASM OF BONE Status: Chronic Priority: High Current Visit: No (3) Ascites SNOMED Code(s): 010137278 Code(s): R18.8 - OTHER ASCITES Status: Acute Current Visit: Yes Qualifiers: Ascites type: malignant Qualified Code(s): R18.0 - Malignant ascites (4) Anemia associated with malignant neoplastic disease SNOMED Code(s): 605709100 Code(s): C80.1 - MALIGNANT (PRIMARY) NEOPLASM, UNSPECIFIED; D63.0 - ANEMIA IN NEOPLASTIC DISEASE Status: Acute Current Visit: Yes - Problem List Review Problem List Initiated/Reviewed/Updated: Yes - My Orders Last 24 Hours: My Active Orders 09/03/20 13:52 PLATELETS APH [BBK] Routine RED BLOOD CELLS LP [BBK] Routine TYPE AND SCREEN [BBK] Routine Transfuse Red Blood Cells [COMM] Routine 09/03/20 14:04 Transfuse Platelets [COMM] Routine - Assessment Assessment:: Hypercalcemia Anemia Weakness - Plan Plan:: Dr. Morgan evaluated patient this morning and discussed prognosis with Georgina and her . Discussed the importance of controlling her pain and will have Toradol for as needed. Discussed chronic use and GI side effects with Eliquis. Calcium level is significantly improved today to 11.2. Will keep observation and repeat labs tomorrow. If any further pain may consider increasing Fentanyl patch to 2 - 100mcg patches as discussed with Dr. Morgan. Will use Toradol for break thru pain. 08/31/2020 Patient will be switched to acute care today. Plan for ultrasound of the abdomen, stage technician out of the office today. Will get ultrasound on Thursday. Lasix 40mg IV today. Will start Lasix 40mg PO BID tomorrow. Dr. Morgan in room with patient and answered all of daughter's questions. Will continue with IV toradol for break thru pain. Calcium level has dropped back to normal limits today. Will d/c IV fluids at this time. CBC and BMP ordered for tomorrow. Will closely monitor. 09-01-2020 Patient drowsy, pain at a 5-6. IV Lasix started yesterday, had improved urine output after. WBC 64.1 today. Hgb 7.2, platelets 95. Creatinine stable at 1.9. Calcium 9.7. Will continue to monitor urine output, edema and pain. Repeat labs in am 09-02-2020 See subjective history. Patient switched to comfort cares. No transfusions, blood draws. Consider stopping oral meds at some point if unable to tolerate. Pain meds as ordered. Stop Eliquis. 09/03/2020 Patient did have repeat laboratory work this morning as requested per family. Hgb is now 6.1. LFT's are stable. Creatinine has slightly improved as well. Calcium normal range today. Discussed with son (Jaxon) who did discuss proceeding with blood transfusion with family. Family wished to start transfusion. Patient to be given 2 units of pRBC's. Will repeat Hgb in am.
[2020-09-04] MEDS: Lactulose Soln 10 GM/15 ML 30 ML UD Cup PO SCH ×3 (00:42→20:02)
[2020-09-04] MEDS: Ketorolac 30 MG/ML SDV IVPUSH PRN ×4 (03:45→20:02)
[2020-09-04] MEDS: OXYCODONE PO PRN ×2 (05:44→13:06)
[2020-09-04] MEDS: ACETAMINOPHEN PO PRN ×2 (05:44→13:06)
[2020-09-04] MEDS: Furosemide 40 MG Tab PO SCH (07:34)
[2020-09-04] MEDS: Pregabalin 50 MG Cap PO SCH ×2 (07:34→20:02)
[2020-09-04] MEDS: Pantoprazole 40 MG Vial IVPUSH SCH (07:34)
[2020-09-04] MEDS: predniSONE 5 MG Tab PO SCH (09:05)
[2020-09-04] MEDS: Ondansetron 4 MG/2 ML SDV IVPUSH PRN (09:30)
[2020-09-04 09:32] VITALS: BP 90/50
[2020-09-04] MEDS: fentaNYL 50 MCG/HR Transdermal Patch TRDERM SCH (09:47)
--- NOTE | 2020-09-04 18:07 | PCM.PN ---
- General Info Date of Service: 09/04/20 Admission Dx/Problem (Free Text): Hypercalcemia Subjective Update: Georgina is a 64 year old female who is seen in the ER yesterday afternoon per recommendations by [facility]. Patient was here for IV fluids per outpatient orders. Was having severe pain in her right shoulder and has had improvement with Toradol in the past. Was given an injection and had improvement of the pain. [facility] was contacted prior to receiving that order and due to her calcium levels, advised to be seen in the ER and evaluated for this. Patient had labs done on Thursday, Zometa was given as well as her chemo injection yesterday at [facility]. She had repeat levels yesterday and her calcium was still high. related that she has had 2 injections with the new chemo. She had increasing pain in her right shoulder over the last few months, meds have been adjusted multiple times. Has had considerable work up for this. They now feel her pain is referred pain is from her liver as she has lesions there now as well. NSAIDs have worked better for her than narcotics. She had been taking ibuprofen and was recently advised to use Aleve. On Thursday, staff at [facility] had noted incr eased swelling in her legs so felt further investigation of that should be done. Was found to have DVT in her right leg so was started on Eliquis. states now advised to not use NSAIDs. 08/30/2020 Patient is resting comfortably in her hospital bed. is present and states she has done really well with pain since getting the toradol injection. She asks if she can go home soon. She denies any complaints presently. 08/31/2020 Georgina is in good spirits this morning. She did have increased right shoulder discomfort and was given Toradol which is the only thing that seems to give her relief for break thru pain. Nursing staff have noticed swelling in her abdomen since yesterday and her legs. She admits to mild shortness of breath. is present and daughter is available via phone this morning. Daughter is concerned of her mother's discomfort and what they can do to help her with the pain as it seems when it gets severe nothing but NSAID's help it. They are concerned rita use they were told not to give any d/t being on blood thinner for DVT. 09-01-2020 Patient is quiet this am, drowsy. States pain at a 5/6. Is getting intermittent Toradol injections yet as still feels those are more beneficial and family is aware of the risk. Protonix was started yesterday for GI protection. Is still getting oxycodone scheduled every 4 hours. Abdomen still bloated. Feels pressure but feels unchanged since yesterday. Likely has ascites due to liver mets and given 2 days of IV fluids. Edema has increased in her legs, 2-3+ up to thighs. Denies increased shortness of breath since yesterday. Is on oxygen at 2 liters to maintain stats. Afebrile. Blood pressure stable. Appetite is poor. Has not had had a BM for about 9 days, declines having a suppository. 09-02-2020 Patient weak, drowsy. Inappropriate answers to questions this am. Around midnight, nurses assisting patient to bathroom and enroute while walking with walker, patient became very limp and weak. Was assisted in to bathroom, had large BM but very weak after. At 0600 this am, patient had large, loose incontinent stool. Dark brown in nature. Does arouse but confused. Stool occult checked this am and positive. Family meeting called due to declining status and lab values this am. Hemo globin down to 6.6, creatinine up to 2.8, potassium 5.2, calcium increasing. Informed family of all results, positive occult stool and current status. Discussed what further goals and treatment plans they would like. Patient herself when asked about transfusions is confused. Family states primary goal is to keep patient comfortable. Discussed use of Toradol again with Eliquis and now concerns with possible area of GI bleeding. Patient recently did switch to DNR status. They voice that not concerned about blood clot and would like her Eliquis stopped as would prefer to continue the Toradol to help best with her pain. Is eating very little. Dehydrated and low hemoglobin. Would like to switch to comfort cares, stop all labs and unnecessary testing. Continue with current meds, switch to IV if needed for pain control. No transfusions at this time. Discussed previous goal of returning home and and children do not feel they could care for her in the state she is currently here and would like her to remain here with comfort measures only. 09/03/2020 Georgina appears to be doing a lot better this morning. is present and states she looks a lot better this morning as compared to this weekend. Patient is conversing without difficulty. Patient continues to be extremely weak and needs assistance to the bathroom. Patient has not had any further incontinent stools since yesterday. D/t patients initial decline over the weekend it was decided via family to keep under comfort measures. Today, again she is doing better. Dr. Morgan did consult with family this morning and requested to repeat laboratory work as she has been anemic with last Hgb being 6.8. Pain has been tolerable with Toradol injections. She is complaining of posterior scapular pain this morning. Brother is present as well this morning. 09/04/2020 Patient continues to be weak but in good spirits this morning. She is sitting up in the hospital bed. is present this morning. Patient continues to need 2 person assist to bathroom as unable to ambulate on her own. Patient did receive 2 units of pRBC's yesterday and family state she has a lot more color today. Functional Status: Reports: Pain Controlled, Tolerating Diet - Review of Systems General: Reports: Weakness, Fatigue. Denies: Fever HEENT: Reports: No Symptoms Pulmonary: Reports: No Symptoms Cardiovascular: Reports: No Symptoms Gastrointestinal: Reports: No Symptoms Musculoskeletal: Reports: Shoulder Pain, Back Pain Skin: Reports: No Symptoms Neurological: Reports: Confusion - Patient Data Vitals - Most Recent: Last Vital Signs Temp 97.1 F 09/04/20 08:00 Pulse 102 H 09/04/20 08:00 Resp 20 09/04/20 08:00 BP 90/50 L 09/04/20 08:00 Pulse Ox 99 09/04/20 08:00 Weight - Most Recent: 137 lb 4.8 oz I&O - Last 24 Hours: Intake & Output 09/04/20 09/04/20 09/04/20 06:59 14:59 22:59 Intake Total 0 Balance 0 Lab Results Last 24 Hours: Laboratory Results - last 24 hr 09/03/20 09/04/20 09/04/20 Range/Units 13:52 07:05 07:05 WBC 29.1 H* (5.0-10.0) 10^3/uL RBC 3.10 L (4.00-5.50) 10^6/uL Hgb 10.2 L (12.0-16.0) g/dL Hct 29.5 L (37.0-47.0) % MCV 95.2 H (82.0-94.0) fL MCH 32.9 H (27.0-32.0) pg MCHC 34.6 (33.0-38.0) g/dL RDW Coeff of Lokesh 17.0 H (11.0-15.0) % Plt Count 53 L (150-400) 10^3/uL Neut % (Auto) 96.0 H (35-85) % Lymph % (Auto) 0.4 L (10-55) % [place] % (Auto) 3.3 (0-16) % Eos % (Auto) 0.3 (0-5) % Baso % (Auto) 0 (0-3) % Neut # (Auto) 27.89 H (1.80-7.00) 10^3/uL Lymph # (Auto) 0.12 L (1.00-4.80) 10^3/uL [place] # (Auto) 0.97 H (0.00-0.80) 10^3/uL Eos # (Auto) 0.10 (0.00-0.45) 10^3/uL Baso # (Auto) 0.01 10^3/uL Sodium 130 L (136-145) mEq/L Potassium 4.8 (3.5-5.0) mEq/L Chloride 99 (98-106) mEq/L Carbon Dioxide 20 L (21-32) mmol/L BUN 69 H (7-18) mg/dL Creatinine 1.7 H (0.6-1.0) mg/dL Est Cr Clr Drug Dosing 29.63 mL/min Estimated GFR (MDRD) 30 L (>=60) mL/min Glucose 102 H (75-99) mg/dL Calcium 9.5 (8.4-10.1) mg/dL Total Bilirubin 0.6 (0.0-1.0) mg/dL AST 62 H (15-37) U/L ALT 42 (12-78) U/L Alkaline Phosphatase 650 H (46-116) U/L Total Protein 5.5 L (6.4-8.2) g/dL Albumin 2.2 L (3.4-5.0) g/dL Blood Type A POSITIVE Gel Antibody Screen Negative Crossmatch See Detail Med Orders - Current: Current Medications Albuterol (Albuterol 8 Gm Inhaler) 0 gm INH Q4H PRN PRN Reason: Shortness of Breath Bisacodyl (Bisacodyl 10 Mg Supp) 10 mg RECTAL DAILY PRN PRN Reason: Constipation Fentanyl (Fentanyl 50 Mcg/Hr Transdermal Patch) 100 mcg TRDERM Q72H COUNT INCLUDES THE [facility] Last Admin: 09/03/20 15:58 Dose: 100 mcg Documented by: Furosemide (Furosemide 40 Mg Tab) 40 mg PO DAILY COUNT INCLUDES THE [facility] Last Admin: 09/04/20 07:34 Dose: 40 mg Documented by: Hydromorphone HCl (Hydromorphone 1 Mg/Ml Syringe) 2 mg IVPUSH Q2H PRN PRN Reason: Pain (severe 7-10) Ketorolac Tromethamine (Ketorolac 30 Mg/Ml Sdv) 15 - 30 mg IVPUSH Q6H PRN PRN Reason: Abdominal Pain Stop: 09/08/20 20:34 Last Admin: 09/04/20 16:00 Dose: 15 mg Documented by: Lactulose (Lactulose Soln 10 Gm/15 Ml 30 Ml Ud Cup) 10 gm PO BID COUNT INCLUDES THE [facility] Last Admin: 09/04/20 07:33 Dose: 10 gm Documented by: Lorazepam (Lorazepam 0.5 Mg Tab) 0.5 mg PO DAILY PRN PRN Reason: Anxiety Dronabinol 10mg (Capsule Pt Own) 0 tab PO BID@0900,1900 PRN PRN Reason: Nausea Acetaminophen/Oxycodone 325/10mg Pt Own 0 each PO Q4H PRN PRN Reason: Pain Last Admin: 09/04/20 13:06 Dose: 2 each Documented by: Ondansetron HCl (Ondansetron 4 Mg/2 Ml Sdv) 4 mg IVPUSH Q6H PRN PRN Reason: Nausea Last Admin: 09/04/20 09:30 Dose: 4 mg Documented by: Ondansetron HCl (Ondansetron 4 Mg Tab.Dis) 8 mg PO BID PRN PRN Reason: Nausea Last Admin: 09/01/20 23:55 Dose: 8 mg Documented by: Pantoprazole Sodium (Pantoprazole 40 Mg Vial) 40 mg IVPUSH Q24H COUNT INCLUDES THE [facility] Last Admin: 09/04/20 07:34 Dose: 40 mg Documented by: Prednisone (Prednisone 5 Mg Tab) 5 mg PO DAILY@0900 COUNT INCLUDES THE [facility] Last Admin: 09/04/20 09:05 Dose: 5 mg Documented by: Pregabalin (Pregabalin 50 Mg Cap) 50 mg PO BID COUNT INCLUDES THE [facility] Last Admin: 09/04/20 07:34 Dose: 50 mg Documented by: Prochlorperazine Maleate (Prochlorperazine 10 Mg Tab) 10 mg PO QID PRN PRN Reason: Nausea Sodium Chloride (Sodium Chloride 0.9% 10 Ml Syringe) 10 ml FLUSH ASDIRECTED PRN PRN Reason: Keep Vein Open Discontinued Medications Acetaminophen (Acetaminophen 500 Mg Tab) 1,000 mg PO BID PRN PRN Reason: Pain Apixaban (Apixaban 5 Mg Tab Pt Own) 10 mg PO BID COUNT INCLUDES THE [facility] Last Admin: 08/31/20 11:26 Dose: 10 mg Documented by: Apixaban (Apixaban 5 Mg Tab) 10 mg PO BID COUNT INCLUDES THE [facility] Last Admin: 09/02/20 09:28 Dose: Not Given Documented by: Fentanyl (Fentanyl 100 Mcg/Hr Transdermal Patch Pt Own) 100 mcg TRDERM Q72H COUNT INCLUDES THE [facility] Fentanyl (Fentanyl 75 Mcg/Hr Transdermal Patch Pt Own) 75 mcg TRDERM Q72H COUNT INCLUDES THE [facility] Fentanyl (Fentanyl 100 Mcg/Hr Transdermal Patch) 100 mcg TRDERM Q72H COUNT INCLUDES THE [facility] Last Admin: 09/01/20 08:46 Dose: Not Given Documented by: Fentanyl (Fentanyl 100 Mcg/Hr Transdermal Patch) 100 mcg TRDERM Q72H COUNT INCLUDES THE [facility] Last Admin: 08/31/20 15:20 Dose: Not Given Documented by: Fentanyl (Fentanyl 50 Mcg/Hr Transdermal Patch) 100 mcg TRDERM Q72H COUNT INCLUDES THE [facility] Last Admin: 09/04/20 09:47 Dose: 100 mcg Documented by: Furosemide (Furosemide 20 Mg Tab Pt Own) 20 mg PO DAILY COUNT INCLUDES THE [facility] Stop: 08/31/20 19:00 Last Admin: 08/31/20 11:25 Dose: 20 mg Documented by: Furosemide (Furosemide 20 Mg Tab) 10 mg PO DAILY COUNT INCLUDES THE [facility] Furosemide (Furosemide 40 Mg Tab) 40 mg PO BIDDIURETIC COUNT INCLUDES THE [facility] Last Admin: 09/03/20 08:50 Dose: Not Given Documented by: Furosemide (Furosemide 40 Mg/4 Ml Vial) 40 mg IVPUSH ONETIME ONE Stop: 08/31/20 13:41 Last Admin: 08/31/20 14:00 Dose: 40 mg Documented by: Sodium Chloride (Normal Saline) 1,000 mls @ 50 mls/hr IV ASDIRECTED JARROD Last Admin: 08/31/20 11:33 Dose: 75 mls/hr Documented by: Sodium Chloride (Normal Saline) 500 mls @ 50 mls/hr IV ASDIRECTED PRN PRN Reason: REACTION TO BLOOD TRANSFUSION Last Admin: 09/03/20 15:43 Dose: 50 mls/hr Documented by: Ketorolac Tromethamine (Ketorolac 30 Mg/Ml Sdv) 15 mg IVPUSH Q6H PRN PRN Reason: Pain Stop: 09/03/20 17:57 Last Admin: 09/03/20 06:31 Dose: 15 mg Documented by: Ketorolac Tromethamine (Ketorolac 30 Mg/Ml Sdv) 15 - 30 mg IVPUSH Q6H PRN PRN Reason: Pain Stop: 09/03/20 17:57 Last Admin: 09/03/20 15:41 Dose: 30 mg Documented by: Lactulose (Lactulose 10 Gm/15 Ml Solution Pt Own) 10 gm PO BID PRN PRN Reason: Constipation Lactulose (Lactulose 10 Gm/15 Ml Solution) 10 gm PO BID PRN PRN Reason: Constipation Last Admin: 09/01/20 19:58 Dose: 10 gm Documented by: Loratadine (Loratadine 10 Mg Tab) 10 mg PO DAILY@0900 COUNT INCLUDES THE [facility] Last Admin: 09/02/20 09:28 Dose: Not Given Documented by: Dronabinol 10 Mg (Capsule Pt Own) 0 mg PO BID@0900,1900 COUNT INCLUDES THE [facility] Last Admin: 09/02/20 09:28 Dose: Not Given Documented by: Ondansetron 8 Mg (Tablet Pt Own*8) 0 mg PO BID@0700,1500 COUNT INCLUDES THE [facility] Last Admin: 08/30/20 15:46 Dose: Not Given Documented by: Acetaminophen/Oxycodone 325-10 Mg Tab Pt Own 0 each PO Q4H COUNT INCLUDES THE [facility] Last Admin: 09/02/20 14:22 Dose: Not Given Documented by: Non-Formulary Medication (Ondansetron) 8 mg PO BID PRN PRN Reason: Nausea Last Admin: 08/31/20 06:14 Dose: 8 mg Documented by: Pantoprazole Sodium (Pantoprazole 40 Mg Vial) 40 mg IVPUSH Q24H COUNT INCLUDES THE [facility] Last Admin: 08/31/20 11:38 Dose: 40 mg Documented by: Prednisone (Prednisone 5 Mg Tab Pt Own) 5 mg PO DAILY@0900 COUNT INCLUDES THE [facility] Last Admin: 08/31/20 11:40 Dose: 5 mg Documented by: Pregabalin (Pregabalin 50 Mg Cap Pt Own*8) 50 mg PO TID COUNT INCLUDES THE [facility] Last Admin: 08/30/20 14:28 Dose: 50 mg Documented by: Pregabalin (Pregabalin 50 Mg Cap) 50 mg PO BID COUNT INCLUDES THE [facility] Last Admin: 08/31/20 11:27 Dose: 50 mg Documented by: Prochlorperazine Maleate (Prochlorperazine 10 Mg Tab Pt Own*8) 10 mg PO QID PRN PRN Reason: Nausea Senna/Docusate Sodium (Docusate Sodium/Sennosides 50-8.6 Mg Tab) 3 tab PO BID COUNT INCLUDES THE [facility] Last Admin: 09/01/20 19:44 Dose: 3 tab Documented by: - Exam General: Alert, Cooperative, No Acute Distress Lungs: Clear to Auscultation, Normal Respiratory Effort Cardiovascular: Regular Rate, Regular Rhythm GI/Abdominal Exam: Normal Bowel Sounds, Soft, Non-Tender, No Distention Extremities: Pedal Edema Skin: Warm, Dry, Intact Neurological: No New Focal Deficit Psy/Mental Status: Alert, Normal Affect, Normal Mood - Patient Data Lab Results Last 24 hrs: Laboratory Results - last 24 hr 09/03/20 09/04/20 09/04/20 Range/Units 13:52 07:05 07:05 WBC 29.1 H* (5.0-10.0) 10^3/uL RBC 3.10 L (4.00-5.50) 10^6/uL Hgb 10.2 L (12.0-16.0) g/dL Hct 29.5 L (37.0-47.0) % MCV 95.2 H (82.0-94.0) fL MCH 32.9 H (27.0-32.0) pg MCHC 34.6 (33.0-38.0) g/dL RDW Coeff of Lokesh 17.0 H (11.0-15.0) % Plt Count 53 L (150-400) 10^3/uL Neut % (Auto) 96.0 H (35-85) % Lymph % (Auto) 0.4 L (10-55) % [place] % (Auto) 3.3 (0-16) % Eos % (Auto) 0.3 (0-5) % Baso % (Auto) 0 (0-3) % Neut # (Auto) 27.89 H (1.80-7.00) 10^3/uL Lymph # (Auto) 0.12 L (1.00-4.80) 10^3/uL [place] # (Auto) 0.97 H (0.00-0.80) 10^3/uL Eos # (Auto) 0.10 (0.00-0.45) 10^3/uL Baso # (Auto) 0.01 10^3/uL Sodium 130 L (136-145) mEq/L Potassium 4.8 (3.5-5.0) mEq/L Chloride 99 (98-106) mEq/L Carbon Dioxide 20 L (21-32) mmol/L BUN 69 H (7-18) mg/dL Creatinine 1.7 H (0.6-1.0) mg/dL Est Cr Clr Drug Dosing 29.63 mL/min Estimated GFR (MDRD) 30 L (>=60) mL/min Glucose 102 H (75-99) mg/dL Calcium 9.5 (8.4-10.1) mg/dL Total Bilirubin 0.6 (0.0-1.0) mg/dL AST 62 H (15-37) U/L ALT 42 (12-78) U/L Alkaline Phosphatase 650 H (46-116) U/L Total Protein 5.5 L (6.4-8.2) g/dL Albumin 2.2 L (3.4-5.0) g/dL Blood Type A POSITIVE Gel Antibody Screen Negative Crossmatch See Detail Result Diagrams: 09/04/20 07:05 09/04/20 07:05 Sepsis Event Note - Evaluation Sepsis Screening Result: No Definite Risk - Focused Exam Vital Signs: Vital Signs Temp Pulse Resp BP Pulse Ox 09/04/20 08:00 97.1 F 102 H 20 90/50 L 99 - Problem List & Annotations (1) Hypercalcemia of malignancy SNOMED Code(s): 34241781 Code(s): E83.52 - HYPERCALCEMIA Status: Resolved Priority: High Current Visit: Yes (2) Lung cancer metastatic to bone SNOMED Code(s): 03994511 Code(s): C34.90 - MALIGNANT NEOPLASM OF UNSP PART OF UNSP BRONCHUS OR LUNG; C79.51 - SECONDARY MALIGNANT NEOPLASM OF BONE Status: Chronic Priority: High Current Visit: No (3) Ascites SNOMED Code(s): 102892196 Code(s): R18.8 - OTHER ASCITES Status: Acute Current Visit: Yes Qualifiers: Ascites type: malignant Qualified Code(s): R18.0 - Malignant ascites (4) Anemia associated with malignant neoplastic disease SNOMED Code(s): 890809807 Code(s): C80.1 - MALIGNANT (PRIMARY) NEOPLASM, UNSPECIFIED; D63.0 - ANEMIA IN NEOPLASTIC DISEASE Status: Acute Current Visit: Yes - Problem List Review Problem List Initiated/Reviewed/Updated: Yes - My Orders Last 24 Hours: My Active Orders 09/04/20 08:43 Cooling Warming Measures [RC] ASDIRECTED K Pad [Heat Therapy] [OM.PC] Routine - Assessment Assessment:: Hypercalcemia Anemia Weakness - Plan Plan:: Dr. Morgan evaluated patient this morning and discussed prognosis with Georgina and her . Discussed the importance of controlling her pain and will have Toradol for as needed. Discussed chronic use and GI side effects with Eliquis. Calcium level is significantly improved today to 11.2. Will keep observation and repeat labs tomorrow. If any further pain may consider increasing Fentanyl patch to 2 - 100mcg patches as discussed with Dr. Morgan. Will use Toradol for break thru pain. 08/31/2020 Patient will be switched to acute care today. Plan for ultrasound of the thang dueñas out of the office today. Will get ultrasound on Thursday. Lasix 40mg IV today. Will start Lasix 40mg PO BID tomorrow. Dr. Morgan in room with patient and answered all of daughter's questions. Will continue with IV toradol for break thru pain. Calcium level has dropped back to normal limits today. Will d/c IV fluids at this time. CBC and BMP ordered for tomorrow. Will closely monitor. 09-01-2020 Patient drowsy, pain at a 5-6. IV Lasix started yesterday, had improved urine output after. WBC 64.1 today. Hgb 7.2, platelets 95. Creatinine stable at 1.9. Calcium 9.7. Will continue to monitor urine output, edema and pain. Repeat labs in am 09-02-2020 See subjective history. Patient switched to comfort cares. No transfusions, blood draws. Consider stopping oral meds at some point if unable to tolerate. Pain meds as ordered. Stop Eliquis. 09/03/2020 Patient did have repeat laboratory work this morning as requested per family. Hgb is now 6.1. LFT's are stable. Creatinine has slightly improved as well. Calcium normal range today. Discussed with son (Jaxon) who did discuss proceeding with blood transfusion with family. Family wished to start transfusion. Patient to be given 2 units of pRBC's. Will repeat Hgb in am. 09/04/2020 Patient's Hgb has significantly improved to 10.2 today. Creatinine has continued to improve as well, current 1.[address] Morgan did have consultation this afternoon with family. Will cut back Fentanyl patch to 100mcg from 200mcg at this time. Plan to continue with IV toradol for pain. May use Dilaudid as ordered if needed. Will refrain from any further laboratory work at this time. Plan to keep patient in swing bed tomorrow for pain control. All questions answered by Dr. Morgan today of family concerns.
[2020-09-05] MEDS: HYDROmorphone 1 MG/ML Syringe IVPUSH PRN ×3 (01:01→21:20)
[2020-09-05] MEDS: Ketorolac 30 MG/ML SDV IVPUSH PRN ×4 (02:56→19:19)
[2020-09-05] MEDS: Lactulose Soln 10 GM/15 ML 30 ML UD Cup PO SCH ×2 (07:33→19:20)
[2020-09-05] MEDS: Pantoprazole 40 MG Vial IVPUSH SCH (07:36)
[2020-09-05] MEDS: Furosemide 40 MG Tab PO SCH (07:36)
[2020-09-05] MEDS: Pregabalin 50 MG Cap PO SCH ×2 (07:36→19:20)
[2020-09-05] MEDS: predniSONE 5 MG Tab PO SCH (09:03)
[2020-09-05] MEDS ORDERED: Ketorolac 30 MG/ML SDV IVPUSH STA (22:52)
[2020-09-06] MEDS: OXYCODONE PO PRN (01:53)
[2020-09-06] MEDS: ACETAMINOPHEN PO PRN (01:53)
[2020-09-06] MEDS: HYDROmorphone 1 MG/ML Syringe IVPUSH PRN ×3 (01:53→11:14)
[2020-09-06] MEDS: Ketorolac 30 MG/ML SDV IVPUSH PRN (04:40)
[2020-09-06] MEDS: hydrOXYzine HCl 25 MG Tab PO PRN ×2 (06:06→21:03)
--- NOTE | 2020-09-06 06:50 | PCM.PN ---
- General Info Date of Service: 09/05/20 Admission Dx/Problem (Free Text): Hypercalcemia Subjective Update: Georgina is a 64 year old female who is seen in the ER yesterday afternoon per recommendations by [facility]. Patient was here for IV fluids per outpatient orders. Was having severe pain in her right shoulder and has had improvement with Toradol in the past. Was given an injection and had improvement of the pain. [facility] was contacted prior to receiving that order and due to her calcium levels, advised to be seen in the ER and evaluated for this. Patient had labs done on Thursday, Zometa was given as well as her chemo injection yesterday at [facility]. She had repeat levels yesterday and her calcium was still high. related that she has had 2 injections with the new chemo. She had increasing pain in her right shoulder over the last few months, meds have been adjusted multiple times. Has had considerable work up for this. They now feel her pain is referred pain is from her liver as she has lesions there now as well. NSAIDs have worked better for her than narcotics. She had been taking ibuprofen and was recently advised to use Aleve. On Thursday, staff at [facility] had noted incr eased swelling in her legs so felt further investigation of that should be done. Was found to have DVT in her right leg so was started on Eliquis. states now advised to not use NSAIDs. 08/30/2020 Patient is resting comfortably in her hospital bed. is present and states she has done really well with pain since getting the toradol injection. She asks if she can go home soon. She denies any complaints presently. 08/31/2020 Georgina is in good spirits this morning. She did have increased right shoulder discomfort and was given Toradol which is the only thing that seems to give her relief for break thru pain. Nursing staff have noticed swelling in her abdomen since yesterday and her legs. She admits to mild shortness of breath. is present and daughter is available via phone this morning. Daughter is concerned of her mother's discomfort and what they can do to help her with the pain as it seems when it gets severe nothing but NSAID's help it. They are concerned rita use they were told not to give any d/t being on blood thinner for DVT. 09-01-2020 Patient is quiet this am, drowsy. States pain at a 5/6. Is getting intermittent Toradol injections yet as still feels those are more beneficial and family is aware of the risk. Protonix was started yesterday for GI protection. Is still getting oxycodone scheduled every 4 hours. Abdomen still bloated. Feels pressure but feels unchanged since yesterday. Likely has ascites due to liver mets and given 2 days of IV fluids. Edema has increased in her legs, 2-3+ up to thighs. Denies increased shortness of breath since yesterday. Is on oxygen at 2 liters to maintain stats. Afebrile. Blood pressure stable. Appetite is poor. Has not had had a BM for about 9 days, declines having a suppository. 09-02-2020 Patient weak, drowsy. Inappropriate answers to questions this am. Around midnight, nurses assisting patient to bathroom and enroute while walking with walker, patient became very limp and weak. Was assisted in to bathroom, had large BM but very weak after. At 0600 this am, patient had large, loose incontinent stool. Dark brown in nature. Does arouse but confused. Stool occult checked this am and positive. Family meeting called due to declining status and lab values this am. Hemo globin down to 6.6, creatinine up to 2.8, potassium 5.2, calcium increasing. Informed family of all results, positive occult stool and current status. Discussed what further goals and treatment plans they would like. Patient herself when asked about transfusions is confused. Family states primary goal is to keep patient comfortable. Discussed use of Toradol again with Eliquis and now concerns with possible area of GI bleeding. Patient recently did switch to DNR status. They voice that not concerned about blood clot and would like her Eliquis stopped as would prefer to continue the Toradol to help best with her pain. Is eating very little. Dehydrated and low hemoglobin. Would like to switch to comfort cares, stop all labs and unnecessary testing. Continue with current meds, switch to IV if needed for pain control. No transfusions at this time. Discussed previous goal of returning home and and children do not feel they could care for her in the state she is currently here and would like her to remain here with comfort measures only. 09/03/2020 Georgina appears to be doing a lot better this morning. is present and states she looks a lot better this morning as compared to this weekend. Patient is conversing without difficulty. Patient continues to be extremely weak and needs assistance to the bathroom. Patient has not had any further incontinent stools since yesterday. D/t patients initial decline over the weekend it was decided via family to keep under comfort measures. Today, again she is doing better. Dr. Morgan did consult with family this morning and requested to repeat laboratory work as she has been anemic with last Hgb being 6.8. Pain has been tolerable with Toradol injections. She is complaining of posterior scapular pain this morning. Brother is present as well this morning. 09/04/2020 Patient continues to be weak but in good spirits this morning. She is sitting up in the hospital bed. is present this morning. Patient continues to need 2 person assist to bathroom as unable to ambulate on her own. Patient did receive 2 units of pRBC's yesterday and family state she has a lot more color today. 09/05/2020 Patient is sitting up in bed this morning. Appears to be weak. Is complaining of pain this morning. and daughter are present. Will given 30mg of Toradol IV at this time. Last dose was 6 hours ago. No other changes through out the night. Yesterday, 1 - 100mcg Fentanyl patch was removed and IV Dilaudid and Toradol were available for patient's discomfort. Functional Status: Reports: Tolerating Diet, Urinating (bowers). Denies: Ambulating - Review of Systems General: Reports: Weakness, Fatigue. Denies: Fever HEENT: Reports: No Symptoms Pulmonary: Reports: No Symptoms Cardiovascular: Reports: No Symptoms Gastrointestinal: Reports: Abdominal Pain. Denies: Diarrhea, Nausea, Vomiting Genitourinary: Reports: No Symptoms Musculoskeletal: Reports: No Symptoms Skin: Reports: No Symptoms Neurological: Reports: Confusion - Patient Data Vitals - Most Recent: Last Vital Signs Temp 98 F 09/06/20 04:05 Pulse 116 H 09/05/20 20:37 Resp 16 09/06/20 04:05 BP 90/50 L 09/04/20 08:00 Pulse Ox 94 L 09/06/20 04:05 Weight - Most Recent: 137 lb 4.8 oz I&O - Last 24 Hours: Intake & Output 09/05/20 09/05/20 09/06/20 14:59 22:59 06:59 Intake Total 100 400 Output Total 675 550 Balance -575 -150 Med Orders - Current: Current Medications Albuterol (Albuterol 8 Gm Inhaler) 0 gm INH Q4H PRN PRN Reason: Shortness of Breath Bisacodyl (Bisacodyl 10 Mg Supp) 10 mg RECTAL DAILY PRN PRN Reason: Constipation Fentanyl (Fentanyl 50 Mcg/Hr Transdermal Patch) 100 mcg TRDERM Q72H [facility] Last Admin: 09/03/20 15:58 Dose: 100 mcg Documented by: Furosemide (Furosemide 40 Mg Tab) 40 mg PO DAILY [facility] Last Admin: 09/05/20 07:36 Dose: 40 mg Documented by: Hydromorphone HCl (Hydromorphone 1 Mg/Ml Syringe) 2 mg IVPUSH Q2H PRN PRN Reason: Pain (severe 7-10) Last Admin: 09/06/20 06:06 Dose: 2 mg Documented by: Hydroxyzine HCl (Hydroxyzine Hcl 25 Mg Tab) 25 mg PO TID PRN PRN Reason: itching Last Admin: 09/06/20 06:06 Dose: 25 mg Documented by: Ketorolac Tromethamine (Ketorolac 30 Mg/Ml Sdv) 15 mg IVPUSH Q4H PRN PRN Reason: Abdominal Pain Stop: 09/08/20 20:34 Last Admin: 09/06/20 04:40 Dose: 15 mg Documented by: Lactulose (Lactulose Soln 10 Gm/15 Ml 30 Ml Ud Cup) 10 gm PO BID [facility] Last Admin: 09/05/20 19:20 Dose: 10 gm Documented by: Lorazepam (Lorazepam 0.5 Mg Tab) 0.5 mg PO DAILY PRN PRN Reason: Anxiety Dronabinol 10mg (Capsule Pt Own) 0 tab PO BID@0900,1900 PRN PRN Reason: Nausea Acetaminophen/Oxycodone 325/10mg Pt Own 0 each PO Q4H PRN PRN Reason: Pain Last Admin: 09/06/20 01:53 Dose: 1 each Documented by: Ondansetron HCl (Ondansetron 4 Mg/2 Ml Sdv) 4 mg IVPUSH Q6H PRN PRN Reason: Nausea Last Admin: 09/04/20 09:30 Dose: 4 mg Documented by: Ondansetron HCl (Ondansetron 4 Mg Tab.Dis) 8 mg PO BID PRN PRN Reason: Nausea Last Admin: 09/01/20 23:55 Dose: 8 mg Documented by: Pantoprazole Sodium (Pantoprazole 40 Mg Vial) 40 mg IVPUSH Q24H [facility] Last Admin: 09/05/20 07:36 Dose: 40 mg Documented by: Prednisone (Prednisone 5 Mg Tab) 5 mg PO DAILY@0900 [facility] Last Admin: 09/05/20 09:03 Dose: 5 mg Documented by: Pregabalin (Pregabalin 50 Mg Cap) 50 mg PO BID [facility] Last Admin: 09/05/20 19:20 Dose: 50 mg Documented by: Prochlorperazine Maleate (Prochlorperazine 10 Mg Tab) 10 mg PO QID PRN PRN Reason: Nausea Senna/Docusate Sodium (Docusate Sodium/Sennosides 50-8.6 Mg Tab) 1 tab PO DAILY [facility] Sodium Chloride (Sodium Chloride 0.9% 10 Ml Syringe) 10 ml FLUSH ASDIRECTED PRN PRN Reason: Keep Vein Open Discontinued Medications Acetaminophen (Acetaminophen 500 Mg Tab) 1,000 mg PO BID PRN PRN Reason: Pain Apixaban (Apixaban 5 Mg Tab Pt Own) 10 mg PO BID [facility] Last Admin: 08/31/20 11:26 Dose: 10 mg Documented by: Apixaban (Apixaban 5 Mg Tab) 10 mg PO BID [facility] Last Admin: 09/02/20 09:28 Dose: Not Given Documented by: Fentanyl (Fentanyl 100 Mcg/Hr Transdermal Patch Pt Own) 100 mcg TRDERM Q72H [facility] Fentanyl (Fentanyl 75 Mcg/Hr Transdermal Patch Pt Own) 75 mcg TRDERM Q72H [facility] Fentanyl (Fentanyl 100 Mcg/Hr Transdermal Patch) 100 mcg TRDERM Q72H [facility] Last Admin: 09/01/20 08:46 Dose: Not Given Documented by: Fentanyl (Fentanyl 100 Mcg/Hr Transdermal Patch) 100 mcg TRDERM Q72H [facility] Last Admin: 08/31/20 15:20 Dose: Not Given Documented by: Fentanyl (Fentanyl 50 Mcg/Hr Transdermal Patch) 100 mcg TRDERM Q72H [facility] Last Admin: 09/04/20 09:47 Dose: 100 mcg Documented by: Furosemide (Furosemide 20 Mg Tab Pt Own) 20 mg PO DAILY [facility] Stop: 08/31/20 19:00 Last Admin: 08/31/20 11:25 Dose: 20 mg Documented by: Furosemide (Furosemide 20 Mg Tab) 10 mg PO DAILY [facility] Furosemide (Furosemide 40 Mg Tab) 40 mg PO BIDDIURETIC [facility] Last Admin: 09/03/20 08:50 Dose: Not Given Documented by: Furosemide (Furosemide 40 Mg/4 Ml Vial) 40 mg IVPUSH ONETIME ONE Stop: 08/31/20 13:41 Last Admin: 08/31/20 14:00 Dose: 40 mg Documented by: Sodium Chloride (Normal Saline) 1,000 mls @ 50 mls/hr IV ASDIRECTED [facility] Last Admin: 08/31/20 11:33 Dose: 75 mls/hr Documented by: Sodium Chloride (Normal Saline) 500 mls @ 50 mls/hr IV ASDIRECTED PRN PRN Reason: REACTION TO BLOOD TRANSFUSION Last Admin: 09/03/20 15:43 Dose: 50 mls/hr Documented by: Ketorolac Tromethamine (Ketorolac 30 Mg/Ml Sdv) 15 mg IVPUSH Q6H PRN PRN Reason: Pain Stop: 09/03/20 17:57 Last Admin: 09/03/20 06:31 Dose: 15 mg Documented by: Ketorolac Tromethamine (Ketorolac 30 Mg/Ml Sdv) 15 - 30 mg IVPUSH Q6H PRN PRN Reason: Pain Stop: 09/03/20 17:57 Last Admin: 09/03/20 15:41 Dose: 30 mg Documented by: Ketorolac Tromethamine (Ketorolac 30 Mg/Ml Sdv) 15 - 30 mg IVPUSH Q6H PRN PRN Reason: Abdominal Pain Stop: 09/08/20 20:34 Last Admin: 09/05/20 14:26 Dose: 30 mg Documented by: Ketorolac Tromethamine (Ketorolac 30 Mg/Ml Sdv) 30 mg IVPUSH STAT STA Stop: 09/05/20 22:53 Last Admin: 09/05/20 23:01 Dose: 30 mg Documented by: Lactulose (Lactulose 10 Gm/15 Ml Solution Pt Own) 10 gm PO BID PRN PRN Reason: Constipation Lactulose (Lactulose 10 Gm/15 Ml Solution) 10 gm PO BID PRN PRN Reason: Constipation Last Admin: 09/01/20 19:58 Dose: 10 gm Documented by: Loratadine (Loratadine 10 Mg Tab) 10 mg PO DAILY@0900 [facility] Last Admin: 09/02/20 09:28 Dose: Not Given Documented by: Dronabinol 10 Mg (Capsule Pt Own) 0 mg PO BID@0900,1900 [facility] Last Admin: 09/02/20 09:28 Dose: Not Given Documented by: Ondansetron 8 Mg (Tablet Pt Own*8) 0 mg PO BID@0700,1500 [facility] Last Admin: 08/30/20 15:46 Dose: Not Given Documented by: Acetaminophen/Oxycodone 325-10 Mg Tab Pt Own 0 each PO Q4H [facility] Last Admin: 09/02/20 14:22 Dose: Not Given Documented by: Non-Formulary Medication (Ondansetron) 8 mg PO BID PRN PRN Reason: Nausea Last Admin: 08/31/20 06:14 Dose: 8 mg Documented by: Pantoprazole Sodium (Pantoprazole 40 Mg Vial) 40 mg IVPUSH Q24H [facility] Last Admin: 08/31/20 11:38 Dose: 40 mg Documented by: Prednisone (Prednisone 5 Mg Tab Pt Own) 5 mg PO DAILY@0900 [facility] Last Admin: 08/31/20 11:40 Dose: 5 mg Documented by: Pregabalin (Pregabalin 50 Mg Cap Pt Own*8) 50 mg PO TID [facility] Last Admin: 08/30/20 14:28 Dose: 50 mg Documented by: Pregabalin (Pregabalin 50 Mg Cap) 50 mg PO BID [facility] Last Admin: 08/31/20 11:27 Dose: 50 mg Documented by: Prochlorperazine Maleate (Prochlorperazine 10 Mg Tab Pt Own*8) 10 mg PO QID PRN PRN Reason: Nausea Senna/Docusate Sodium (Docusate Sodium/Sennosides 50-8.6 Mg Tab) 3 tab PO BID [facility] Last Admin: 09/01/20 19:44 Dose: 3 tab Documented by: - Exam Quality Assessment: Supplemental Oxygen General: Alert, Cooperative Lungs: Decreased Breath Sounds, Crackles Cardiovascular: Regular Rate, Regular Rhythm Extremities: Pedal Edema Skin: Warm, Dry, Intact Neurological: No New Focal Deficit Psy/Mental Status: Alert - Patient Data Result Diagrams: 09/04/20 07:05 09/04/20 07:05 Sepsis Event Note - Evaluation Sepsis Screening Result: No Definite Risk - Focused Exam Vital Signs: Vital Signs Temp Pulse Resp Pulse Ox 09/06/20 04:05 98 F 16 94 L 09/05/20 20:37 97.6 F 116 H 18 94 L - Problem List & Annotations (1) Hypercalcemia of malignancy SNOMED Code(s): 33072443 Code(s): E83.52 - HYPERCALCEMIA Status: Resolved Priority: High Current Visit: Yes (2) Lung cancer metastatic to bone SNOMED Code(s): 52842950 Code(s): C34.90 - MALIGNANT NEOPLASM OF UNSP PART OF UNSP BRONCHUS OR LUNG; C79.51 - SECONDARY MALIGNANT NEOPLASM OF BONE Status: Chronic Priority: High Current Visit: No (3) Ascites SNOMED Code(s): 732724451 Code(s): R18.8 - OTHER ASCITES Status: Acute Current Visit: Yes Qualifiers: Ascites type: malignant Qualified Code(s): R18.0 - Malignant ascites (4) Anemia associated with malignant neoplastic disease SNOMED Code(s): 407086442 Code(s): C80.1 - MALIGNANT (PRIMARY) NEOPLASM, UNSPECIFIED; D63.0 - ANEMIA IN NEOPLASTIC DISEASE Status: Acute Current Visit: Yes - Problem List Review Problem List Initiated/Reviewed/Updated: Yes - My Orders Last 24 Hours: My Active Orders 09/05/20 15:46 Ketorolac [Toradol] 15 mg IVPUSH Q4H PRN hydrOXYzine HCL [Atarax] 25 mg PO TID PRN 09/06/20 08:00 Docusate Sodium/Sennosides [Senna Plus] 1 tab PO DAILY - Assessment Assessment:: Hypercalcemia Anemia Weakness - Plan Plan:: Dr. Morgan evaluated patient this morning and discussed prognosis with Georgina and her . Discussed the importance of controlling her pain and will have Toradol for as needed. Discussed chronic use and GI side effects with Eliquflor. Calcium level is significantly improved today to 11.2. Will keep observation and repeat labs tomorrow. If any further pain may consider increasing Fentanyl patch to 2 - 100mcg patches as discussed with Dr. Morgan. Will use Toradol for break thru pain. 08/31/2020 Patient will be switched to acute care today. Plan for ultrasound of the abdo men, ophthalmic medical technologist out of the office today. Will get ultrasound on Thursday. Lasix 40mg IV today. Will start Lasix 40mg PO BID tomorrow. Dr. Morgan in room with patient and answered all of daughter's questions. Will continue with IV toradol for break thru pain. Calcium level has dropped back to normal limits today. Will d/c IV fluids at this time. CBC and BMP ordered for tomorrow. Will closely monitor. 09-01-2020 Patient drowsy, pain at a 5-6. IV Lasix started yesterday, had improved urine output after. WBC 64.1 today. Hgb 7.2, platelets 95. Creatinine stable at 1.9. Calcium 9.7. Will continue to monitor urine output, edema and pain. Repeat labs in am 09-02-2020 See subjective history. Patient switched to comfort cares. No transfusions, blood draws. Consider stopping oral meds at some point if unable to tolerate. Pain meds as ordered. Stop Eliquis. 09/03/2020 Patient did have repeat laboratory work this morning as requested per family. Hgb is now 6.1. LFT's are stable. Creatinine has slightly improved as well. Calcium normal range today. Discussed with son (Jaxon) who did discuss proceeding with blood transfusion with family. Family wished to start transfusion. Patient to be given 2 units of pRBC's. Will repeat Hgb in am. 09/04/2020 Patient's Hgb has significantly improved to 10.2 today. Creatinine has continued to improve as well, current 1.[address] Morgan did have consultation this afternoon with family. Will cut back Fentanyl patch to 100mcg from 200mcg at this time. Plan to continue with IV toradol for pain. May use Dilaudid as ordered if needed. Will refrain from any further laboratory work at this time. Plan to keep patient in swing bed tomorrow for pain control. All questions answered by Dr. Morgan today of family concerns. 09/05/2020 Discussed with family current pain medications. Discussed concerns of possible withdrawal vs appropriate pain control. Advised we may want to use increase Fentanyl back to 200mcg as she appears to be more uncomfortable today. Family would like to see how she does today. Will give IV Toradol now as it has been 6 hours. No further laboratory work at this time as will continue to keep patient comfortable. IV Dilaudid was given this morning as well.
[2020-09-06] MEDS: Furosemide 40 MG Tab PO SCH (07:40)
[2020-09-06] MEDS: Lactulose Soln 10 GM/15 ML 30 ML UD Cup PO SCH ×2 (07:40→20:12)
[2020-09-06] MEDS: Pantoprazole 40 MG Vial IVPUSH SCH (07:40)
[2020-09-06] MEDS: Pregabalin 50 MG Cap PO SCH ×2 (07:40→20:11)
[2020-09-06] MEDS: predniSONE 5 MG Tab PO SCH (09:02)
[2020-09-06] MEDS: Ketorolac 30 MG/ML SDV IVPUSH SCH ×3 (09:11→20:10)
[2020-09-06] MEDS ORDERED: Acetaminophen 325 MG Tab PO PRN (09:44)
--- NOTE | 2020-09-06 10:06 | PCM.PN ---
- General Info Date of Service: 09/06/20 Admission Dx/Problem (Free Text): Hypercalcemia Subjective Update: Georgina is a 64 year old female who is seen in the ER yesterday afternoon per recommendations by [facility]. Patient was here for IV fluids per outpatient orders. Was having severe pain in her right shoulder and has had improvement with Toradol in the past. Was given an injection and had improvement of the pain. [facility] was contacted prior to receiving that order and due to her calcium levels, advised to be seen in the ER and evaluated for this. Patient had labs done on Thursday, Zometa was given as well as her chemo injection yesterday at [facility]. She had repeat levels yesterday and her calcium was still high. related that she has had 2 injections with the new chemo. She had increasing pain in her right shoulder over the last few months, meds have been adjusted multiple times. Has had considerable work up for this. They now feel her pain is referred pain is from her liver as she has lesions there now as well. NSAIDs have worked better for her than narcotics. She had been taking ibuprofen and was recently advised to use Aleve. On Thursday, staff at [facility] had noted incr eased swelling in her legs so felt further investigation of that should be done. Was found to have DVT in her right leg so was started on Eliquis. states now advised to not use NSAIDs. 08/30/2020 Patient is resting comfortably in her hospital bed. is present and states she has done really well with pain since getting the toradol injection. She asks if she can go home soon. She denies any complaints presently. 08/31/2020 Georgina is in good spirits this morning. She did have increased right shoulder discomfort and was given Toradol which is the only thing that seems to give her relief for break thru pain. Nursing staff have noticed swelling in her abdomen since yesterday and her legs. She admits to mild shortness of breath. is present and daughter is available via phone this morning. Daughter is concerned of her mother's discomfort and what they can do to help her with the pain as it seems when it gets severe nothing but NSAID's help it. They are concerned rita use they were told not to give any d/t being on blood thinner for DVT. 09-01-2020 Patient is quiet this am, drowsy. States pain at a 5/6. Is getting intermittent Toradol injections yet as still feels those are more beneficial and family is aware of the risk. Protonix was started yesterday for GI protection. Is still getting oxycodone scheduled every 4 hours. Abdomen still bloated. Feels pressure but feels unchanged since yesterday. Likely has ascites due to liver mets and given 2 days of IV fluids. Edema has increased in her legs, 2-3+ up to thighs. Denies increased shortness of breath since yesterday. Is on oxygen at 2 liters to maintain stats. Afebrile. Blood pressure stable. Appetite is poor. Has not had had a BM for about 9 days, declines having a suppository. 09-02-2020 Patient weak, drowsy. Inappropriate answers to questions this am. Around midnight, nurses assisting patient to bathroom and enroute while walking with walker, patient became very limp and weak. Was assisted in to bathroom, had large BM but very weak after. At 0600 this am, patient had large, loose incontinent stool. Dark brown in nature. Does arouse but confused. Stool occult checked this am and positive. Family meeting called due to declining status and lab values this am. Hemo globin down to 6.6, creatinine up to 2.8, potassium 5.2, calcium increasing. Informed family of all results, positive occult stool and current status. Discussed what further goals and treatment plans they would like. Patient herself when asked about transfusions is confused. Family states primary goal is to keep patient comfortable. Discussed use of Toradol again with Eliquis and now concerns with possible area of GI bleeding. Patient recently did switch to DNR status. They voice that not concerned about blood clot and would like her Eliquis stopped as would prefer to continue the Toradol to help best with her pain. Is eating very little. Dehydrated and low hemoglobin. Would like to switch to comfort cares, stop all labs and unnecessary testing. Continue with current meds, switch to IV if needed for pain control. No transfusions at this time. Discussed previous goal of returning home and and children do not feel they could care for her in the state she is currently here and would like her to remain here with comfort measures only. 09/03/2020 Georgina appears to be doing a lot better this morning. is present and states she looks a lot better this morning as compared to this weekend. Patient is conversing without difficulty. Patient continues to be extremely weak and needs assistance to the bathroom. Patient has not had any further incontinent stools since yesterday. D/t patients initial decline over the weekend it was decided via family to keep under comfort measures. Today, again she is doing better. Dr. Morgan did consult with family this morning and requested to repeat laboratory work as she has been anemic with last Hgb being 6.8. Pain has been tolerable with Toradol injections. She is complaining of posterior scapular pain this morning. Brother is present as well this morning. 09/04/2020 Patient continues to be weak but in good spirits this morning. She is sitting up in the hospital bed. is present this morning. Patient continues to need 2 person assist to bathroom as unable to ambulate on her own. Patient did receive 2 units of pRBC's yesterday and family state she has a lot more color today. 09/05/2020 Patient is sitting up in bed this morning. Appears to be weak. Is complaining of pain this morning. and daughter are present. Will given 30mg of Toradol IV at this time. Last dose was 6 hours ago. No other changes through out the night. Yesterday, 1 - 100mcg Fentanyl patch was removed and IV Dilaudid and Toradol were available for patient's discomfort. 09/06/2020 Nursing staff state patient did seem restless last night. Unsure whether it is secondary to withdrawal from the Fentanyl or not. Family present do state they would like to see if she can come off the Fentanyl. They feel she has never really benefited from the Fentanyl and feel it has caused confusion and sedation with no relief of her pain. They admit yesterday she had a lot of visitors and was more of her normal self. States she did have a clearer mind. - Review of Systems General: Reports: Weakness, Fatigue HEENT: Reports: No Symptoms Pulmonary: Reports: No Symptoms Cardiovascular: Reports: No Symptoms Gastrointestinal: Reports: No Symptoms Musculoskeletal: Reports: Shoulder Pain, Back Pain Neurological: Reports: Confusion - Patient Data Vitals - Most Recent: Last Vital Signs Temp 98 F 09/06/20 04:05 Pulse 116 H 09/05/20 20:37 Resp 16 09/06/20 04:05 BP 90/50 L 09/04/20 08:00 Pulse Ox 94 L 09/06/20 04:05 Weight - Most Recent: 137 lb 4.8 oz I&O - Last 24 Hours: Intake & Output 09/05/20 09/06/20 09/06/20 22:59 06:59 14:59 Intake Total 100 400 Output Total 675 550 Balance -575 -150 Med Orders - Current: Current Medications Acetaminophen (Acetaminophen 325 Mg Tab) 650 mg PO Q4H PRN PRN Reason: Pain Albuterol (Albuterol 8 Gm Inhaler) 0 gm INH Q4H PRN PRN Reason: Shortness of Breath Bisacodyl (Bisacodyl 10 Mg Supp) 10 mg RECTAL DAILY PRN PRN Reason: Constipation Fentanyl (Fentanyl 50 Mcg/Hr Transdermal Patch) 75 mcg TRDERM Q72H [facility] Furosemide (Furosemide 40 Mg Tab) 40 mg PO DAILY [facility] Last Admin: 09/06/20 07:40 Dose: 40 mg Documented by: Hydromorphone HCl (Hydromorphone 1 Mg/Ml Syringe) 2 mg IVPUSH Q2H PRN PRN Reason: Pain (severe 7-10) Last Admin: 09/06/20 06:06 Dose: 2 mg Documented by: Hydroxyzine HCl (Hydroxyzine Hcl 25 Mg Tab) 25 mg PO TID PRN PRN Reason: itching Last Admin: 09/06/20 06:06 Dose: 25 mg Documented by: Ketorolac Tromethamine (Ketorolac 30 Mg/Ml Sdv) 30 mg IVPUSH Q6H [facility] Stop: 09/11/20 08:42 Last Admin: 09/06/20 09:11 Dose: 30 mg Documented by: Lactulose (Lactulose Soln 10 Gm/15 Ml 30 Ml Ud Cup) 10 gm PO BID [facility] Last Admin: 09/06/20 07:40 Dose: 10 gm Documented by: Lorazepam (Lorazepam 0.5 Mg Tab) 0.5 mg PO DAILY PRN PRN Reason: Anxiety Dronabinol 10mg (Capsule Pt Own) 0 tab PO BID@0900,1900 PRN PRN Reason: Nausea Acetaminophen/Oxycodone 325/10mg Pt Own 0 each PO Q4H PRN PRN Reason: Pain Last Admin: 09/06/20 01:53 Dose: 1 each Documented by: Ondansetron HCl (Ondansetron 4 Mg/2 Ml Sdv) 4 mg IVPUSH Q6H PRN PRN Reason: Nausea Last Admin: 09/04/20 09:30 Dose: 4 mg Documented by: Ondansetron HCl (Ondansetron 4 Mg Tab.Dis) 8 mg PO BID PRN PRN Reason: Nausea Last Admin: 09/01/20 23:55 Dose: 8 mg Documented by: Pantoprazole Sodium (Pantoprazole 40 Mg Vial) 40 mg IVPUSH Q24H [facility] Last Admin: 09/06/20 07:40 Dose: 40 mg Documented by: Prednisone (Prednisone 5 Mg Tab) 5 mg PO DAILY@0900 [facility] Last Admin: 09/06/20 09:02 Dose: 5 mg Documented by: Pregabalin (Pregabalin 50 Mg Cap) 50 mg PO BID [facility] Last Admin: 09/06/20 07:40 Dose: 50 mg Documented by: Prochlorperazine Maleate (Prochlorperazine 10 Mg Tab) 10 mg PO QID PRN PRN Reason: Nausea Senna/Docusate Sodium (Docusate Sodium/Sennosides 50-8.6 Mg Tab) 1 tab PO DAILY [facility] Last Admin: 09/06/20 07:40 Dose: 1 tab Documented by: Sodium Chloride (Sodium Chloride 0.9% 10 Ml Syringe) 10 ml FLUSH ASDIRECTED PRN PRN Reason: Keep Vein Open Discontinued Medications Acetaminophen (Acetaminophen 500 Mg Tab) 1,000 mg PO BID PRN PRN Reason: Pain Apixaban (Apixaban 5 Mg Tab Pt Own) 10 mg PO BID [facility] Last Admin: 08/31/20 11:26 Dose: 10 mg Documented by: Apixaban (Apixaban 5 Mg Tab) 10 mg PO BID [facility] Last Admin: 09/02/20 09:28 Dose: Not Given Documented by: Fentanyl (Fentanyl 100 Mcg/Hr Transdermal Patch Pt Own) 100 mcg TRDERM Q72H [facility] Fentanyl (Fentanyl 75 Mcg/Hr Transdermal Patch Pt Own) 75 mcg TRDERM Q72H [facility] Fentanyl (Fentanyl 100 Mcg/Hr Transdermal Patch) 100 mcg TRDERM Q72H [facility] Last Admin: 09/01/20 08:46 Dose: Not Given Documented by: Fentanyl (Fentanyl 100 Mcg/Hr Transdermal Patch) 100 mcg TRDERM Q72H [facility] Last Admin: 08/31/20 15:20 Dose: Not Given Documented by: Fentanyl (Fentanyl 50 Mcg/Hr Transdermal Patch) 100 mcg TRDERM Q72H [facility] Last Admin: 09/03/20 15:58 Dose: 100 mcg Documented by: Fentanyl (Fentanyl 50 Mcg/Hr Transdermal Patch) 100 mcg TRDERM Q72H [facility] Last Admin: 09/04/20 09:47 Dose: 100 mcg Documented by: Furosemide (Furosemide 20 Mg Tab Pt Own) 20 mg PO DAILY [facility] Stop: 08/31/20 19:00 Last Admin: 08/31/20 11:25 Dose: 20 mg Documented by: Furosemide (Furosemide 20 Mg Tab) 10 mg PO DAILY [facility] Furosemide (Furosemide 40 Mg Tab) 40 mg PO BIDDIURETIC [facility] Last Admin: 09/03/20 08:50 Dose: Not Given Documented by: Furosemide (Furosemide 40 Mg/4 Ml Vial) 40 mg IVPUSH ONETIME ONE Stop: 08/31/20 13:41 Last Admin: 08/31/20 14:00 Dose: 40 mg Documented by: Sodium Chloride (Normal Saline) 1,000 mls @ 50 mls/hr IV ASDIRECTED JARROD Last Admin: 08/31/20 11:33 Dose: 75 mls/hr Documented by: Sodium Chloride (Normal Saline) 500 mls @ 50 mls/hr IV ASDIRECTED PRN PRN Reason: REACTION TO BLOOD TRANSFUSION Last Admin: 09/03/20 15:43 Dose: 50 mls/hr Documented by: Ketorolac Tromethamine (Ketorolac 30 Mg/Ml Sdv) 15 mg IVPUSH Q6H PRN PRN Reason: Pain Stop: 09/03/20 17:57 Last Admin: 09/03/20 06:31 Dose: 15 mg Documented by: Ketorolac Tromethamine (Ketorolac 30 Mg/Ml Sdv) 15 - 30 mg IVPUSH Q6H PRN PRN Reason: Pain Stop: 09/03/20 17:57 Last Admin: 09/03/20 15:41 Dose: 30 mg Documented by: Ketorolac Tromethamine (Ketorolac 30 Mg/Ml Sdv) 15 - 30 mg IVPUSH Q6H PRN PRN Reason: Abdominal Pain Stop: 09/08/20 20:34 Last Admin: 09/05/20 14:26 Dose: 30 mg Documented by: Ketorolac Tromethamine (Ketorolac 30 Mg/Ml Sdv) 15 mg IVPUSH Q4H PRN PRN Reason: Abdominal Pain Stop: 09/08/20 20:34 Last Admin: 09/06/20 04:40 Dose: 15 mg Documented by: Ketorolac Tromethamine (Ketorolac 30 Mg/Ml Sdv) 30 mg IVPUSH STAT STA Stop: 09/05/20 22:53 Last Admin: 09/05/20 23:01 Dose: 30 mg Documented by: Lactulose (Lactulose 10 Gm/15 Ml Solution Pt Own) 10 gm PO BID PRN PRN Reason: Constipation Lactulose (Lactulose 10 Gm/15 Ml Solution) 10 gm PO BID PRN PRN Reason: Constipation Last Admin: 09/01/20 19:58 Dose: 10 gm Documented by: Loratadine (Loratadine 10 Mg Tab) 10 mg PO DAILY@0900 [facility] Last Admin: 09/02/20 09:28 Dose: Not Given Documented by: Dronabinol 10 Mg (Capsule Pt Own) 0 mg PO BID@0900,1900 [facility] Last Admin: 09/02/20 09:28 Dose: Not Given Documented by: Ondansetron 8 Mg (Tablet Pt Own*8) 0 mg PO BID@0700,1500 [facility] Last Admin: 08/30/20 15:46 Dose: Not Given Documented by: Acetaminophen/Oxycodone 325-10 Mg Tab Pt Own 0 each PO Q4H [facility] Last Admin: 09/02/20 14:22 Dose: Not Given Documented by: Non-Formulary Medication (Ondansetron) 8 mg PO BID PRN PRN Reason: Nausea Last Admin: 08/31/20 06:14 Dose: 8 mg Documented by: Pantoprazole Sodium (Pantoprazole 40 Mg Vial) 40 mg IVPUSH Q24H [facility] Last Admin: 08/31/20 11:38 Dose: 40 mg Documented by: Prednisone (Prednisone 5 Mg Tab Pt Own) 5 mg PO DAILY@0900 [facility] Last Admin: 08/31/20 11:40 Dose: 5 mg Documented by: Pregabalin (Pregabalin 50 Mg Cap Pt Own*8) 50 mg PO TID [facility] Last Admin: 08/30/20 14:28 Dose: 50 mg Documented by: Pregabalin (Pregabalin 50 Mg Cap) 50 mg PO BID [facility] Last Admin: 08/31/20 11:27 Dose: 50 mg Documented by: Prochlorperazine Maleate (Prochlorperazine 10 Mg Tab Pt Own*8) 10 mg PO QID PRN PRN Reason: Nausea Senna/Docusate Sodium (Docusate Sodium/Sennosides 50-8.6 Mg Tab) 3 tab PO BID [facility] Last Admin: 09/01/20 19:44 Dose: 3 tab Documented by: - Exam General: Alert, No Acute Distress, Lethargic Extremities: Pedal Edema Neurological: No New Focal Deficit Psy/Mental Status: Alert, Normal Mood - Patient Data Result Diagrams: 09/04/20 07:05 09/04/20 07:05 Sepsis Event Note - Evaluation Sepsis Screening Result: No Definite Risk - Focused Exam Vital Signs: Vital Signs Temp Resp Pulse Ox 09/06/20 04:05 98 F 16 94 L - Problem List & Annotations (1) Hypercalcemia of malignancy SNOMED Code(s): 54076888 Code(s): E83.52 - HYPERCALCEMIA Status: Resolved Priority: High Current Visit: Yes (2) Lung cancer metastatic to bone SNOMED Code(s): 22452882 Code(s): C34.90 - MALIGNANT NEOPLASM OF UNSP PART OF UNSP BRONCHUS OR LUNG; C79.51 - SECONDARY MALIGNANT NEOPLASM OF BONE Status: Chronic Priority: High Current Visit: No (3) Ascites SNOMED Code(s): 154993744 Code(s): R18.8 - OTHER ASCITES Status: Acute Current Visit: Yes Qualifiers: Ascites type: malignant Qualified Code(s): R18.0 - Malignant ascites (4) Anemia associated with malignant neoplastic disease SNOMED Code(s): 746518294 Code(s): C80.1 - MALIGNANT (PRIMARY) NEOPLASM, UNSPECIFIED; D63.0 - ANEMIA IN NEOPLASTIC DISEASE Status: Acute Current Visit: Yes - Problem List Review Problem List Initiated/Reviewed/Updated: Yes - My Orders Last 24 Hours: My Active Orders 09/05/20 15:46 hydrOXYzine HCL [Atarax] 25 mg PO TID PRN 09/06/20 08:00 Docusate Sodium/Sennosides [Senna Plus] 1 tab PO DAILY 09/06/20 08:45 Ketorolac [Toradol] 30 mg IVPUSH Q6H 09/06/20 09:44 Acetaminophen [TylenoL] 650 mg PO Q4H PRN 09/06/20 09:45 fentaNYL [Duragesic] 75 mcg TRDERM Q72H - Assessment Assessment:: Hypercalcemia Anemia Weakness - Plan Plan:: Dr. Morgan evaluated patient this morning and discussed prognosis with Georgina and her . Discussed the importance of controlling her pain and will have Toradol for as needed. Discussed chronic use and GI side effects with Eliquis. Calcium level is significantly improved today to 11.2. Will keep observation and repeat labs tomorrow. If any further pain may consider increasing Fentanyl patch to 2 - 100mcg patches as discussed with Dr. Morgan. Will use Toradol for break thru pain. 08/31/2020 Patient will be switched to acute care today. Plan for ultrasound of the abdomen, research laboratory technician out of the office today. Will get ultrasound on Thursday. Lasix 40mg IV today. Will start Lasix 40mg PO BID tomorrow. Dr. Morgan in room with patient and answered all of daughter's questions. Will continue with IV toradol for break thru pain. Calcium level has dropped back to normal limits today. Will d/c IV fluids at this time. CBC and BMP ordered for tomorrow. Will closely monitor. 09-01-2020 Patient drowsy, pain at a 5-6. IV Lasix started yesterday, had improved urine output after. WBC 64.1 today. Hgb 7.2, platelets 95. Creatinine stable at 1.9. Calcium 9.7. Will continue to monitor urine output, edema and pain. Repeat labs in am 09-02-2020 See subjective history. Patient switched to comfort cares. No transfusions, blood draws. Consider stopping oral meds at some point if unable to tolerate. Pain meds as ordered. Stop Eliquis. 09/03/2020 Patient did have repeat laboratory work this morning as requested per family. Hgb is now 6.1. LFT's are stable. Creatinine has slightly improved as well. Calcium normal range today. Discussed with son (Jaxon) who did discuss proceeding with blood transfusion with family. Family wished to start transfusion. Patient to be given 2 units of pRBC's. Will repeat Hgb in am. 09/04/2020 Patient's Hgb has significantly improved to 10.2 today. Creatinine has continued to improve as well, current 1.[address] Morgan did have consultation this afternoon with family. Will cut back Fentanyl patch to 100mcg from 200mcg at this time. Plan to continue with IV toradol for pain. May use Dilaudid as ordere d if needed. Will refrain from any further laboratory work at this time. Plan to keep patient in swing bed tomorrow for pain control. All questions answered by Dr. Morgan today of family concerns. 09/05/2020 Discussed with family current pain medications. Discussed concerns of possible withdrawal vs appropriate pain control. Advised we may want to use increase Fentanyl back to 200mcg as she appears to be more uncomfortable today. Family would like to see how she does today. Will give IV Toradol now as it has been 6 hours. No further laboratory work at this time as will continue to keep patient comfortable. IV Dilaudid was given this morning as well. 09/06/2020 Consulted with family today. Will continue to try and decrease Fentanyl as they feel she is more herself as she has been coming off of it. Will go to 75mcg from 100mcg at next scheduled patch change. IV Toradol will be scheduled 30mg every 6 hours as this has seemed to help the most. In between doses will give 650mg of Tylenol. Dr. Morgan consulted and is in agreement with plan at this time.
[2020-09-06] MEDS ORDERED: fentaNYL 50 MCG/HR Transdermal Patch TRDERM SCH ×3 (10:30→15:00)
[2020-09-06] MEDS ORDERED: fentaNYL 25 MCG/HR Transdermal Patch TRDERM SCH ×2 (10:30→15:00)
[2020-09-06] MEDS: fentaNYL 50 MCG/HR Transdermal Patch TRDERM SCH (15:08)
[2020-09-06] MEDS: fentaNYL 25 MCG/HR Transdermal Patch TRDERM SCH (15:27)
[2020-09-06] MEDS: Ondansetron 4 MG Tab.DIS PO PRN (15:34)
[2020-09-06 19:23] VITALS: PULSE 105
[2020-09-07] MEDS: HYDROmorphone 1 MG/ML Syringe IVPUSH PRN ×2 (00:23→06:48)
[2020-09-07] MEDS: Ketorolac 30 MG/ML SDV IVPUSH SCH ×3 (02:41→14:38)
[2020-09-07] MEDS: Pantoprazole 40 MG Vial IVPUSH SCH (08:34)
[2020-09-07] MEDS: Pregabalin 50 MG Cap PO SCH (08:39)
[2020-09-07] MEDS: predniSONE 5 MG Tab PO SCH (08:39)
[2020-09-07] MEDS: Lactulose Soln 10 GM/15 ML 30 ML UD Cup PO SCH (08:39)
[2020-09-07] MEDS: Furosemide 40 MG Tab PO SCH (08:39)
[2020-09-07] MEDS ORDERED: Morphine 4 MG/ML VIAL IVPUSH ONE (08:44)
[2020-09-07] MEDS ORDERED: LORazepam 2 MG/ML Syringe IVPUSH ONE (08:45)
[2020-09-07] MEDS ORDERED: LORazepam 2 MG/ML Syringe IVPUSH PRN ×2 (08:47→15:20)
--- NOTE | 2020-09-07 08:52 | PCM.PN ---
- General Info Date of Service: 09/07/20 Admission Dx/Problem (Free Text): Hypercalcemia Subjective Update: Georgina is a 64 year old female who is seen in the ER yesterday afternoon per recommendations by [facility]. Patient was here for IV fluids per outpatient orders. Was having severe pain in her right shoulder and has had improvement with Toradol in the past. Was given an injection and had improvement of the pain. [facility] was contacted prior to receiving that order and due to her calcium levels, advised to be seen in the ER and evaluated for this. Patient had labs done on Thursday, Zometa was given as well as her chemo injection yesterday at [facility]. She had repeat levels yesterday and her calcium was still high. related that she has had 2 injections with the new chemo. She had increasing pain in her right shoulder over the last few months, meds have been adjusted multiple times. Has had considerable work up for this. They now feel her pain is referred pain is from her liver as she has lesions there now as well. NSAIDs have worked better for her than narcotics. She had been taking ibuprofen and was recently advised to use Aleve. On Thursday, staff at [facility] had noted incr eased swelling in her legs so felt further investigation of that should be done. Was found to have DVT in her right leg so was started on Eliquis. states now advised to not use NSAIDs. 08/30/2020 Patient is resting comfortably in her hospital bed. is present and states she has done really well with pain since getting the toradol injection. She asks if she can go home soon. She denies any complaints presently. 08/31/2020 Georgina is in good spirits this morning. She did have increased right shoulder discomfort and was given Toradol which is the only thing that seems to give her relief for break thru pain. Nursing staff have noticed swelling in her abdomen since yesterday and her legs. She admits to mild shortness of breath. is present and daughter is available via phone this morning. Daughter is concerned of her mother's discomfort and what they can do to help her with the pain as it seems when it gets severe nothing but NSAID's help it. They are concerned rita use they were told not to give any d/t being on blood thinner for DVT. 09-01-2020 Patient is quiet this am, drowsy. States pain at a 5/6. Is getting intermittent Toradol injections yet as still feels those are more beneficial and family is aware of the risk. Protonix was started yesterday for GI protection. Is still getting oxycodone scheduled every 4 hours. Abdomen still bloated. Feels pressure but feels unchanged since yesterday. Likely has ascites due to liver mets and given 2 days of IV fluids. Edema has increased in her legs, 2-3+ up to thighs. Denies increased shortness of breath since yesterday. Is on oxygen at 2 liters to maintain stats. Afebrile. Blood pressure stable. Appetite is poor. Has not had had a BM for about 9 days, declines having a suppository. 09-02-2020 Patient weak, drowsy. Inappropriate answers to questions this am. Around midnight, nurses assisting patient to bathroom and enroute while walking with walker, patient became very limp and weak. Was assisted in to bathroom, had large BM but very weak after. At 0600 this am, patient had large, loose incontinent stool. Dark brown in nature. Does arouse but confused. Stool occult checked this am and positive. Family meeting called due to declining status and lab values this am. Hemo globin down to 6.6, creatinine up to 2.8, potassium 5.2, calcium increasing. Informed family of all results, positive occult stool and current status. Discussed what further goals and treatment plans they would like. Patient herself when asked about transfusions is confused. Family states primary goal is to keep patient comfortable. Discussed use of Toradol again with Eliquis and now concerns with possible area of GI bleeding. Patient recently did switch to DNR status. They voice that not concerned about blood clot and would like her Eliquis stopped as would prefer to continue the Toradol to help best with her pain. Is eating very little. Dehydrated and low hemoglobin. Would like to switch to comfort cares, stop all labs and unnecessary testing. Continue with current meds, switch to IV if needed for pain control. No transfusions at this time. Discussed previous goal of returning home and and children do not feel they could care for her in the state she is currently here and would like her to remain here with comfort measures only. 09/03/2020 Georgina appears to be doing a lot better this morning. is present and states she looks a lot better this morning as compared to this weekend. Patient is conversing without difficulty. Patient continues to be extremely weak and needs assistance to the bathroom. Patient has not had any further incontinent stools since yesterday. D/t patients initial decline over the weekend it was decided via family to keep under comfort measures. Today, again she is doing better. Dr. Morgan did consult with family this morning and requested to repeat laboratory work as she has been anemic with last Hgb being 6.8. Pain has been tolerable with Toradol injections. She is complaining of posterior scapular pain this morning. Brother is present as well this morning. 09/04/2020 Patient continues to be weak but in good spirits this morning. She is sitting up in the hospital bed. is present this morning. Patient continues to need 2 person assist to bathroom as unable to ambulate on her own. Patient did receive 2 units of pRBC's yesterday and family state she has a lot more color today. 09/05/2020 Patient is sitting up in bed this morning. Appears to be weak. Is complaining of pain this morning. and daughter are present. Will given 30mg of Toradol IV at this time. Last dose was 6 hours ago. No other changes through out the night. Yesterday, 1 - 100mcg Fentanyl patch was removed and IV Dilaudid and Toradol were available for patient's discomfort. 09/06/2020 Nursing staff state patient did seem restless last night. Unsure whether it is secondary to withdrawal from the Fentanyl or not. Family present do state they would like to see if she can come off the Fentanyl. They feel she has never really benefited from the Fentanyl and feel it has caused confusion and sedation with no relief of her pain. They admit yesterday she had a lot of visitors and was more of her normal self. States she did have a clearer mind. 09/07/2020 Patient did not sleep well last night. Staff state she was uncomfortable most of the night and only got a few hours of sleep. is present and daughter is available via phone today. Questioning if we could try morphine drip; however there was concern that patient didn't tolerate morphine in the past. Dilaudid doesn't seem to be helping at all. Only relief she has gotten is from Toradol. Family would like to stay away from Fentanyl as they feel it has only caused her to be confused and provided no relief with her pain. Functional Status: Denies: Pain Controlled - Review of Systems General: Reports: Weakness Pulmonary: Reports: No Symptoms Cardiovascular: Reports: No Symptoms Gastrointestinal: Reports: Abdominal Pain Musculoskeletal: Reports: Shoulder Pain, Back Pain Neurological: Reports: Confusion - Patient Data Vitals - Most Recent: Last Vital Signs Temp 98 F 09/06/20 08:00 Pulse 105 H 09/06/20 08:00 Resp 16 09/06/20 04:05 BP 90/50 L 09/04/20 08:00 Pulse Ox 94 L 09/06/20 08:00 Weight - Most Recent: 137 lb 4.8 oz I&O - Last 24 Hours: Intake & Output 09/06/20 09/07/20 09/07/20 22:59 06:59 14:59 Intake Total 150 200 Output Total 600 300 Balance -450 -100 Med Orders - Current: Current Medications Acetaminophen (Acetaminophen 325 Mg Tab) 650 mg PO Q4H PRN PRN Reason: Pain Last Admin: 09/06/20 12:23 Dose: 650 mg Documented by: Albuterol (Albuterol 8 Gm Inhaler) 0 gm INH Q4H PRN PRN Reason: Shortness of Breath Bisacodyl (Bisacodyl 10 Mg Supp) 10 mg RECTAL DAILY PRN PRN Reason: Constipation Fentanyl (Fentanyl 50 Mcg/Hr Transdermal Patch) 50 mcg TRDERM Q72H [facility] Last Admin: 09/06/20 15:08 Dose: 50 mcg Documented by: Fentanyl (Fentanyl 25 Mcg/Hr Transdermal Patch) 25 mcg TRDERM Q72H [facility] Last Admin: 09/06/20 15:27 Dose: 25 mcg Documented by: Furosemide (Furosemide 40 Mg Tab) 40 mg PO DAILY [facility] Last Admin: 09/07/20 08:39 Dose: 40 mg Documented by: Hydroxyzine HCl (Hydroxyzine Hcl 25 Mg Tab) 25 mg PO TID PRN PRN Reason: itching Last Admin: 09/06/20 21:03 Dose: 25 mg Documented by: Ketorolac Tromethamine (Ketorolac 30 Mg/Ml Sdv) 30 mg IVPUSH Q6H [facility] Stop: 09/11/20 08:42 Last Admin: 09/07/20 08:28 Dose: 30 mg Documented by: Lactulose (Lactulose Soln 10 Gm/15 Ml 30 Ml Ud Cup) 10 gm PO BID [facility] Last Admin: 09/07/20 08:39 Dose: 10 gm Documented by: Lorazepam (Lorazepam 0.5 Mg Tab) 0.5 mg PO DAILY PRN PRN Reason: Anxiety Last Admin: 09/07/20 00:19 Dose: 0.5 mg Documented by: Lorazepam (Lorazepam 2 Mg/Ml Syringe) 1 mg IVPUSH Q6H PRN PRN Reason: Anxiety Morphine Sulfate (Morphine 4 Mg/Ml Vial) 4 mg IVPUSH ONETIME ONE Stop: 09/07/20 08:45 Dronabinol 10mg (Capsule Pt Own) 0 tab PO BID@0900,1900 PRN PRN Reason: Nausea Acetaminophen/Oxycodone 325/10mg Pt Own 0 each PO Q4H PRN PRN Reason: Pain Last Admin: 09/06/20 01:53 Dose: 1 each Documented by: Ondansetron HCl (Ondansetron 4 Mg/2 Ml Sdv) 4 mg IVPUSH Q6H PRN PRN Reason: Nausea Last Admin: 09/04/20 09:30 Dose: 4 mg Documented by: Ondansetron HCl (Ondansetron 4 Mg Tab.Dis) 8 mg PO BID PRN PRN Reason: Nausea Last Admin: 09/06/20 15:34 Dose: 8 mg Documented by: Pantoprazole Sodium (Pantoprazole 40 Mg Vial) 40 mg IVPUSH Q24H [facility] Last Admin: 09/07/20 08:34 Dose: 40 mg Documented by: Prednisone (Prednisone 5 Mg Tab) 5 mg PO DAILY@0900 [facility] Last Admin: 09/07/20 08:39 Dose: 5 mg Documented by: Pregabalin (Pregabalin 50 Mg Cap) 50 mg PO BID [facility] Last Admin: 09/07/20 08:39 Dose: 50 mg Documented by: Prochlorperazine Maleate (Prochlorperazine 10 Mg Tab) 10 mg PO QID PRN PRN Reason: Nausea Senna/Docusate Sodium (Docusate Sodium/Sennosides 50-8.6 Mg Tab) 1 tab PO DAILY [facility] Last Admin: 09/07/20 08:39 Dose: 1 tab Documented by: Sodium Chloride (Sodium Chloride 0.9% 10 Ml Syringe) 10 ml FLUSH ASDIRECTED PRN PRN Reason: Keep Vein Open Discontinued Medications Acetaminophen (Acetaminophen 500 Mg Tab) 1,000 mg PO BID PRN PRN Reason: Pain Apixaban (Apixaban 5 Mg Tab Pt Own) 10 mg PO BID [facility] Last Admin: 08/31/20 11:26 Dose: 10 mg Documented by: Apixaban (Apixaban 5 Mg Tab) 10 mg PO BID [facility] Last Admin: 09/02/20 09:28 Dose: Not Given Documented by: Fentanyl (Fentanyl 100 Mcg/Hr Transdermal Patch Pt Own) 100 mcg TRDERM Q72H [facility] Fentanyl (Fentanyl 75 Mcg/Hr Transdermal Patch Pt Own) 75 mcg TRDERM Q72H [facility] Fentanyl (Fentanyl 100 Mcg/Hr Transdermal Patch) 100 mcg TRDERM Q72H [facility] Last Admin: 09/01/20 08:46 Dose: Not Given Documented by: Fentanyl (Fentanyl 100 Mcg/Hr Transdermal Patch) 100 mcg TRDERM Q72H [facility] Last Admin: 08/31/20 15:20 Dose: Not Given Documented by: Fentanyl (Fentanyl 50 Mcg/Hr Transdermal Patch) 100 mcg TRDERM Q72H [facility] Last Admin: 09/03/20 15:58 Dose: 100 mcg Documented by: Fentanyl (Fentanyl 50 Mcg/Hr Transdermal Patch) 100 mcg TRDERM Q72H [facility] Last Admin: 09/04/20 09:47 Dose: 100 mcg Documented by: Fentanyl (Fentanyl 50 Mcg/Hr Transdermal Patch) 50 mcg TRDERM Q72H [facility] Last Admin: 09/06/20 20:14 Dose: Not Given Documented by: Fentanyl (Fentanyl 25 Mcg/Hr Transdermal Patch) 25 mcg TRDERM Q72H [facility] Last Admin: 09/06/20 20:15 Dose: Not Given Documented by: Fentanyl (Fentanyl 50 Mcg/Hr Transdermal Patch) 50 mcg TRDERM Q72H [facility] Fentanyl (Fentanyl 25 Mcg/Hr Transdermal Patch) 25 mcg TRDERM Q72H [facility] Fentanyl (Fentanyl 50 Mcg/Hr Transdermal Patch) 100 mcg TRDERM Q72H [facility] Furosemide (Furosemide 20 Mg Tab Pt Own) 20 mg PO DAILY [facility] Stop: 08/31/20 19:00 Last Admin: 08/31/20 11:25 Dose: 20 mg Documented by: Furosemide (Furosemide 20 Mg Tab) 10 mg PO DAILY [facility] Furosemide (Furosemide 40 Mg Tab) 40 mg PO BIDDIURETIC [facility] Last Admin: 09/03/20 08:50 Dose: Not Given Documented by: Furosemide (Furosemide 40 Mg/4 Ml Vial) 40 mg IVPUSH ONETIME ONE Stop: 08/31/20 13:41 Last Admin: 08/31/20 14:00 Dose: 40 mg Documented by: Hydromorphone HCl (Hydromorphone 1 Mg/Ml Syringe) 2 mg IVPUSH Q2H PRN PRN Reason: Pain (severe 7-10) Last Admin: 09/07/20 06:48 Dose: 2 mg Documented by: Sodium Chloride (Normal Saline) 1,000 mls @ 50 mls/hr IV ASDIRECTED [facility] Last Admin: 08/31/20 11:33 Dose: 75 mls/hr Documented by: Sodium Chloride (Normal Saline) 500 mls @ 50 mls/hr IV ASDIRECTED PRN PRN Reason: REACTION TO BLOOD TRANSFUSION Last Admin: 09/03/20 15:43 Dose: 50 mls/hr Documented by: Ketorolac Tromethamine (Ketorolac 30 Mg/Ml Sdv) 15 mg IVPUSH Q6H PRN PRN Reason: Pain Stop: 09/03/20 17:57 Last Admin: 09/03/20 06:31 Dose: 15 mg Documented by: Ketorolac Tromethamine (Ketorolac 30 Mg/Ml Sdv) 15 - 30 mg IVPUSH Q6H PRN PRN Reason: Pain Stop: 09/03/20 17:57 Last Admin: 09/03/20 15:41 Dose: 30 mg Documented by: Ketorolac Tromethamine (Ketorolac 30 Mg/Ml Sdv) 15 - 30 mg IVPUSH Q6H PRN PRN Reason: Abdominal Pain Stop: 09/08/20 20:34 Last Admin: 09/05/20 14:26 Dose: 30 mg Documented by: Ketorolac Tromethamine (Ketorolac 30 Mg/Ml Sdv) 15 mg IVPUSH Q4H PRN PRN Reason: Abdominal Pain Stop: 09/08/20 20:34 Last Admin: 09/06/20 04:40 Dose: 15 mg Documented by: Ketorolac Tromethamine (Ketorolac 30 Mg/Ml Sdv) 30 mg IVPUSH STAT STA Stop: 09/05/20 22:53 Last Admin: 09/05/20 23:01 Dose: 30 mg Documented by: Lactulose (Lactulose 10 Gm/15 Ml Solution Pt Own) 10 gm PO BID PRN PRN Reason: Constipation Lactulose (Lactulose 10 Gm/15 Ml Solution) 10 gm PO BID PRN PRN Reason: Constipation Last Admin: 09/01/20 19:58 Dose: 10 gm Documented by: Loratadine (Loratadine 10 Mg Tab) 10 mg PO DAILY@0900 [facility] Last Admin: 09/02/20 09:28 Dose: Not Given Documented by: Lorazepam (Lorazepam 2 Mg/Ml Syringe) 1 mg IVPUSH ONETIME ONE Stop: 09/07/20 08:46 Dronabinol 10 Mg (Capsule Pt Own) 0 mg PO BID@0900,1900 [facility] Last Admin: 09/02/20 09:28 Dose: Not Given Documented by: Ondansetron 8 Mg (Tablet Pt Own*8) 0 mg PO BID@0700,1500 [facility] Last Admin: 08/30/20 15:46 Dose: Not Given Documented by: Acetaminophen/Oxycodone 325-10 Mg Tab Pt Own 0 each PO Q4H [facility] Last Admin: 09/02/20 14:22 Dose: Not Given Documented by: Non-Formulary Medication (Ondansetron) 8 mg PO BID PRN PRN Reason: Nausea Last Admin: 08/31/20 06:14 Dose: 8 mg Documented by: Pantoprazole Sodium (Pantoprazole 40 Mg Vial) 40 mg IVPUSH Q24H [facility] Last Admin: 08/31/20 11:38 Dose: 40 mg Documented by: Prednisone (Prednisone 5 Mg Tab Pt Own) 5 mg PO DAILY@0900 [facility] Last Admin: 08/31/20 11:40 Dose: 5 mg Documented by: Pregabalin (Pregabalin 50 Mg Cap Pt Own*8) 50 mg PO TID [facility] Last Admin: 08/30/20 14:28 Dose: 50 mg Documented by: Pregabalin (Pregabalin 50 Mg Cap) 50 mg PO BID [facility] Last Admin: 08/31/20 11:27 Dose: 50 mg Documented by: Prochlorperazine Maleate (Prochlorperazine 10 Mg Tab Pt Own*8) 10 mg PO QID PRN PRN Reason: Nausea Senna/Docusate Sodium (Docusate Sodium/Sennosides 50-8.6 Mg Tab) 3 tab PO BID [facility] Last Admin: 09/01/20 19:44 Dose: 3 tab Documented by: - Exam General: Alert, Mild Distress Lungs: Decreased Breath Sounds, Crackles Cardiovascular: Regular Rate, Regular Rhythm GI/Abdominal Exam: Normal Bowel Sounds, No Mass, Tender (RUQ) Skin: Warm, Dry, Intact Psy/Mental Status: Alert, Normal Affect, Normal Mood - Patient Data Result Diagrams: 09/04/20 07:05 09/04/20 07:05 Sepsis Event Note - Evaluation Sepsis Screening Result: No Definite Risk - Problem List & Annotations (1) Hypercalcemia of malignancy SNOMED Code(s): 68165879 Code(s): E83.52 - HYPERCALCEMIA Status: Resolved Priority: High Current Visit: Yes (2) Lung cancer metastatic to bone SNOMED Code(s): 25511153 Code(s): C34.90 - MALIGNANT NEOPLASM OF UNSP PART OF UNSP BRONCHUS OR LUNG; C79.51 - SECONDARY MALIGNANT NEOPLASM OF BONE Status: Chronic Priority: High Current Visit: No (3) Ascites SNOMED Code(s): 092371517 Code(s): R18.8 - OTHER ASCITES Status: Acute Current Visit: Yes Qualifiers: Ascites type: malignant Qualified Code(s): R18.0 - Malignant ascites (4) Anemia associated with malignant neoplastic disease SNOMED Code(s): 307540933 Code(s): C80.1 - MALIGNANT (PRIMARY) NEOPLASM, UNSPECIFIED; D63.0 - ANEMIA IN NEOPLASTIC DISEASE Status: Acute Current Visit: Yes - Problem List Review Problem List Initiated/Reviewed/Updated: Yes - My Orders Last 24 Hours: My Active Orders 09/06/20 08:00 Docusate Sodium/Sennosides [Senna Plus] 1 tab PO DAILY 09/06/20 08:45 Ketorolac [Toradol] 30 mg IVPUSH Q6H 09/06/20 09:44 Acetaminophen [TylenoL] 650 mg PO Q4H PRN 09/06/20 15:00 fentaNYL [Duragesic] 25 mcg TRDERM Q72H fentaNYL [Duragesic] 50 mcg TRDERM Q72H 09/07/20 08:44 Morphine 4 mg IVPUSH ONETIME ONE 09/07/20 08:47 LORazepam [Ativan] 1 mg IVPUSH Q6H PRN - Assessment Assessment:: Hypercalcemia Anemia Weakness - Plan Plan:: Dr. Morgan evaluated patient this morning and discussed prognosis with Georgina and her . Discussed the importance of controlling her pain and will have Toradol for as needed. Discussed chronic use and GI side effects with Eliquis. Calcium level is significantly improved today to 11.2. Will keep observation and repeat labs tomorrow. If any further pain may consider increasing Fentanyl patch to 2 - 100mcg patches as discussed with Dr. Morgan. Will use Toradol for break thru pain. 08/31/2020 Patient will be switched to acute care today. Plan for ultrasound of the abdomen, bindery technician out of the office today. Will get ultrasound on Thursday. Lasix 40mg IV today. Will start Lasix 40mg PO BID tomorrow. Dr. Morgan in room with patient and answered all of daughter's questions. Will continue with IV toradol for break thru pain. Calcium level has dropped back to normal limits today. Will d/c IV fluids at this time. CBC and BMP ordered for tomorrow. Will closely monitor. 09-01-2020 Patient drowsy, pain at a 5-6. IV Lasix started yesterday, had improved urine output after. WBC 64.1 today. Hgb 7.2, platelets 95. Creatinine stable at 1.9. Calcium 9.7. Will continue to monitor urine output, edema and pain. Repeat labs in am 09-02-2020 See subjective history. Patient switched to comfort cares. No transfusions, blood draws. Consider stopping oral meds at some point if unable to tolerate. Pain meds as ordered. Stop Eliquis. 09/03/2020 Patient did have repeat laboratory work this morning as requested per family. Hgb is now 6.1. LFT's are stable. Creatinine has slightly improved as well. Calcium normal range today. Discussed with son (Jaxon) who did discuss proceeding with blood transfusion with family. Family wished to start transfusion. Patient to be given 2 units of pRBC's. Will repeat Hgb in am. 09/04/2020 Patient's Hgb has significantly improved to 10.2 today. Creatinine has continued to improve as well, current 1.[address] Morgan did have consultation this afternoon with family. Will cut back Fentanyl patch to 100mcg from 200mcg at this time. Plan to continue with IV toradol for pain. May use Dilaudid as ordered if needed. Will refrain from any further laboratory work at this time. Plan to keep patient in swing bed tomorrow for pain control. All questions answered by Dr. Morgan today of family concerns. 09/05/2020 Discussed with family current pain medications. Discussed concerns of possible withdrawal vs appropriate pain control. Advised we may want to use increase Fentanyl back to 200mcg as she appears to be more uncomfortable today. Family would like to see how she does today. Will give IV Toradol now as it has been 6 hours. No further laboratory work at this time as will continue to keep patient comfortable. IV Dilaudid was given this morning as well. 09/06/2020 Consulted with family today. Will continue to try and decrease Fentanyl as they feel she is more herself as she has been coming off of it. Will go to 75mcg from 100mcg at next scheduled patch change. IV Toradol will be scheduled 30mg every 6 hours as this has seemed to help the most. In between doses will give 650mg of Tylenol. Dr. Morgan consulted and is in agreement with plan at this time. 09/07/2020 Discussed with family my concern of Georgina being uncomfortable since decreasing the Fentanyl. I verbalized I understand they want to be able to converse with Georgina and for her to not be as confused. I did advise that her pain is the most important thing to treat as they are in agreement to. We will try morphine today and if tolerates well or provides some pain relief, will start DETECTIVE PRECINCT drip. Family is in agreement.
[2020-09-07] MEDS: Ondansetron 4 MG/2 ML SDV IVPUSH PRN (09:07)
[2020-09-07] MEDS ORDERED: diphenhydrAMINE 25 MG Cap PO PRN (13:48)
[2020-09-07] MEDS ORDERED: Naloxone 2 MG/2 ML Syringe IVPUSH PRN (13:48)
[2020-09-07] MEDS ORDERED: diphenhydrAMINE 50 MG/ML SDV IVPUSH PRN (13:48)
[2020-09-07] MEDS ORDERED: Ondansetron 4 MG/2 ML SDV IVPUSH PRN (13:48)
[2020-09-07] MEDS ORDERED: Morphine PF 30 MG/30 ML PCA Vial IV PRN (13:48)
[2020-09-07] MEDS: fentaNYL 50 MCG/HR Transdermal Patch TRDERM SCH (14:44)
[2020-09-07] MEDS: fentaNYL 25 MCG/HR Transdermal Patch TRDERM SCH (14:45)
[2020-09-07] MEDS ORDERED: Morphine 4 MG/ML VIAL IVPUSH PRN (15:19)
--- NOTE | 2020-09-08 08:20 | PCM.DCSUM1 ---
Discharge Summary - Hospital Course HPI Initial Comments: Georgina is a 64 yo female who was admitted at the end of August from the ED. Patient has metastatic lung disease and was having severe pain in her right shoulder. [facility] was contacted at time of admission and due to her calcium levels being significantly high, advised to be seen in the ER and evaluated for this. she was givne Toradol in ED which has seemed to be the only thing that really controls her pain. Patient did have labs done on Thursday, Zometa was given as well as her chemo injection at [facility]. She had repeat levels yesterday and her calcium was still high. related that she has had 2 injections with the new chemo. She had increasing pain in her right shoulder over the last few months, meds have been adjusted multiple times. Has had considerable work up for this. They now feel her pain is referred pain is from her liver as she has lesions there now as well. NSAIDs have worked better for her than narcotics. She had been taking ibuprofen and was recently advised to use Aleve. On Thursday prior to admission, staff at [facility] had noted increased swelling in her legs so felt further investigation of that should be done. Was found to have DVT in her right leg so was started on Eliquis. states now advised to not use NSAIDs. - Discharge Data Discharge Date: 09/07/20 Discharge Disposition: DC/Tfer W/I Hosp To Swing 61 Condition: Good - Referral to Home Health Primary Care Physician: Panfilo Morgan MD - Discharge Diagnosis/Problem(s) (1) Hypercalcemia of malignancy SNOMED Code(s): 37289712 ICD Code: E83.52 - HYPERCALCEMIA Status: Resolved Priority: High (2) Lung cancer metastatic to bone SNOMED Code(s): 69852449 ICD Code: C34.90 - MALIGNANT NEOPLASM OF UNSP PART OF UNSP BRONCHUS OR LUNG; C79.51 - SECONDARY MALIGNANT NEOPLASM OF BONE Status: Chronic Priority: High (3) Ascites SNOMED Code(s): 734034628 ICD Code: R18.8 - OTHER ASCITES Status: Acute Qualifiers: Ascites type: malignant Qualified Code(s): R18.0 - Malignant ascites (4) Anemia associated with malignant neoplastic disease SNOMED Code(s): 448616798 ICD Code: C80.1 - MALIGNANT (PRIMARY) NEOPLASM, UNSPECIFIED; D63.0 - ANEMIA IN NEOPLASTIC DISEASE Status: Acute - Discharge Plan *PRESCRIPTION DRUG MONITORING PROGRAM REVIEWED*: No *COPY OF PRESCRIPTION DRUG MONITORING REPORT IN PATIENT MARY ALICE: No Home Medications: Home Meds fentaNYL [Duragesic] 175 mcg TOP Q3D 11/09/19 [History] Acetaminophen [Tylenol Extra Strength] 1,000 mg PO BID PRN 11/11/19 [History] Ondansetron [Zofran] 4 mg PO 0700,1500 PRN 08/08/20 [History] Pregabalin [Lyrica] 50 mg PO BID 08/08/20 [History] predniSONE [Prednisone] 1 tab PO 0900 08/08/20 [History] oxyCODONE HCl/Acetaminophen [Oxycodone-Acetaminophen 5-325] 2 tab PO Q4HR 08/23/20 [History] Albuterol Sulfate [Albuterol Sulfate HFA] 2 inh INH Q4H PRN 08/29/20 [History] Apixaban [Eliquis] 10 mg PO BID 08/29/20 [History] Docusate Sodium/Sennosides [Senna Plus] 3 tab PO BID 08/29/20 [History] Furosemide 20 mg PO DAILY 08/29/20 [History] LORazepam [Ativan] 0.5 mg PO DAILY PRN 08/29/20 [History] Lactulose 10 gm PO BID PRN 08/29/20 [History] Loratadine [Claritin] 10 mg PO 0900 08/29/20 [History] Naloxone [Narcan] 1 spray SHWETA ASDIRECTED PRN 08/29/20 [History] Prochlorperazine Maleate [Compazine] 10 mg PO QID PRN 08/29/20 [History] dronabinoL [Dronabinol] 10 mg PO 0900,1900 08/29/20 [History] Forms: ED Department Discharge Referrals: Panfilo Morgan MD [Primary Care Provider] - - Discharge Summary/Plan Comment DC Time >30 min.: Yes Discharge Summary/Plan Comment: Georgina was initially treated with IV fluids on admit. Calcium level did improve. Hgb continued to drop since admit and underwent blood transfusion. Patient continued to be weak and have worsening pain. She has been receiving IV toradol routinely since admit, which is the only thing that has helped. Family had decided to keep patient in comfort care and no further labs, blood products. Since admit her pain medications have been adjusted. See progress note from today as well. Have been in consultation with family daily. please use discharge summary for swing bed H&P - General Info Admission Dx/Problem (Free Text: Hypercalcemia Subjective Update: Georgina is a 64 year old female who is seen in the ER yesterday afternoon per recommendations by [facility]. Patient was here for IV fluids per outpatient orders. Was having severe pain in her right shoulder and has had improvement with Toradol in the past. Was given an injection and had improvement of the pain. [facility] was contacted prior to receiving that order and due to her calcium levels, advised to be seen in the ER and evaluated for this. Patient had labs done on Thursday, Zometa was given as well as her chemo injection yesterday at [facility]. She had repeat levels yesterday and her calcium was still high. related that she has had 2 injections with the new chemo. She had increasing pain in her right shoulder over the last few months, meds have been adjusted multiple times. Has had considerable work up for this. They now feel her pain is referred pain is from her liver as she has lesions there now as well. NSAIDs have worked better for her than narcotics. She had been taking ibuprofen and was recently advised to use Aleve. On Thursday, staff at [facility] had noted increased swelling in her legs so felt further investigation of that should be done. Was found to have DVT in her right leg so was started on Eliquis. states now advised to not use NSAIDs. 08/30/2020 Patient is resting comfortably in her hospital bed. is present and states she has done really well with pain since getting the toradol injection. She asks if she can go home soon. She denies any complaints presently. 08/31/2020 Georgina is in good spirits this morning. She did have increased right shoulder discomfort and was given Toradol which is the only thing that seems to give her relief for break thru pain. Nursing staff have noticed swelling in her abdomen since yesterday and her legs. She admits to mild shortness of breath. is present and daughter is available via phone this morning. Daughter is concerned of her mother's discomfort and what they can do to help her with the pain as it seems when it gets severe nothing but NSAID's help it. They are concerned because they were told not to give any d/t being on blood thinner for DVT. 09-01-2020 Patient is quiet this am, drowsy. States pain at a 5/6. Is getting intermittent Toradol injections yet as still feels those are more beneficial and family is aware of the risk. Protonix was started yesterday for GI protection. Is still getting oxycodone scheduled every 4 hours. Abdomen still bloated. Feels pressure but feels unchanged since yesterday. Likely has ascites due to liver mets and given 2 days of IV fluids. Edema has increased in her legs, 2-3+ up to thighs. Denies increased shortness of breath since yesterday. Is on oxygen at 2 liters to maintain stats. Afebrile. Blood pressure stable. Appetite is poor. Has not had had a BM for about 9 days, declines having a suppository. 09-02-2020 Patient weak, drowsy. Inappropriate answers to questions this am. Around midnight, nurses assisting patient to bathroom and enroute while walking with walker, patient became very limp and weak. Was assisted in to bathroom, had large BM but very weak after. At 0600 this am, patient had large, loose incontinent stool. Dark brown in nature. Does arouse but confused. Stool occult checked this am and positive. Family meeting called due to declining status and lab values this am. Hemoglobin down to 6.6, creatinine up to 2.8, potassium 5.2, calcium increasing. Informed family of all results, positive occult stool and current status. Discussed what further goals and treatment plans they would like. Patient herself when asked about transfusions is confused. Family states primary goal is to keep patient comfortable. Discussed use of Toradol again with Eliquis and now concerns with possible area of GI bleeding. Patient recently did switch to DNR status. They voice that not concerned about blood clot and would like her Eliquis stopped as would prefer to continue the Toradol to help best with her pain. Is eating very little. Dehydrated and low hemoglobin. Would like to switch to comfort cares, stop all labs and unnecessary testing. Continue with current meds, switch to IV if needed for pain control. No transfusions at this time. Discussed previous goal of returning home and and children do not feel they could care for her in the state she is currently here and would like her to remain here with comfort measures only. 09/03/2020 Georgina appears to be doing a lot better this morning. is present and states she looks a lot better this morning as compared to this weekend. Patient is conversing without difficulty. Patient continues to be extremely weak and needs assistance to the bathroom. Patient has not had any further incontinent st ools since yesterday. D/t patients initial decline over the weekend it was decided via family to keep under comfort measures. Today, again she is doing better. Dr. Morgan did consult with family this morning and requested to repeat laboratory work as she has been anemic with last Hgb being 6.8. Pain has been tolerable with Toradol injections. She is complaining of posterior scapular pain this morning. Brother is present as well this morning. 09/04/2020 Patient continues to be weak but in good spirits this morning. She is sitting up in the hospital bed. is present this morning. Patient continues to need 2 person assist to bathroom as unable to ambulate on her own. Patient did receive 2 units of pRBC's yesterday and family state she has a lot more color today. 09/05/2020 Patient is sitting up in bed this morning. Appears to be weak. Is complaining of pain this morning. and daughter are present. Will given 30mg of Toradol IV at this time. Last dose was 6 hours ago. No other changes through out the night. Yesterday, 1 - 100mcg Fentanyl patch was removed and IV Dilaudid and Toradol were available for patient's discomfort. 09/06/2020 Nursing staff state patient did seem restless last night. Unsure whether it is secondary to withdrawal from the Fentanyl or not. Family present do state they would like to see if she can come off the Fentanyl. They feel she has never really benefited from the Fentanyl and feel it has caused confusion and sedation with no relief of her pain. They admit yesterday she had a lot of visitors and was more of her normal self. States she did have a clearer mind. 09/07/2020 Patient did not sleep well last night. Staff state she was uncomfortable most of the night and only got a few hours of sleep. is present and daughter is available via phone today. Questioning if we could try morphine drip; however there was concern that patient didn't tolerate morphine in the past. Dilaudid doesn't seem to be helping at all. Only relief she has gotten is from Toradol. Family would like to stay away from Fentanyl as they feel it has only caused her to be confused and provided no relief with her pain. Functional Status: Denies: Pain Controlled - Review of Systems Musculoskeletal: Reports: Shoulder Pain, Back Pain - Patient Data Vitals - Most Recent: Last Vital Signs Temp 98 F 09/06/20 08:00 Pulse 105 H 09/06/20 08:00 Resp 16 09/06/20 04:05 BP 90/50 L 09/04/20 08:00 Pulse Ox 94 L 09/06/20 08:00 Weight - Most Recent: 137 lb 4.8 oz Med Orders - Current: Current Medications Discontinued Medications Acetaminophen (Acetaminophen 500 Mg Tab) 1,000 mg PO BID PRN PRN Reason: Pain Acetaminophen (Acetaminophen 325 Mg Tab) 650 mg PO Q4H PRN PRN Reason: Pain Last Admin: 09/06/20 12:23 Dose: 650 mg Documented by: Albuterol (Albuterol 8 Gm Inhaler) 0 gm INH Q4H PRN PRN Reason: Shortness of Breath Apixaban (Apixaban 5 Mg Tab Pt Own) 10 mg PO BID [facility] Last Admin: 08/31/20 11:26 Dose: 10 mg Documented by: Apixaban (Apixaban 5 Mg Tab) 10 mg PO BID [facility] Last Admin: 09/02/20 09:28 Dose: Not Given Documented by: Bisacodyl (Bisacodyl 10 Mg Supp) 10 mg RECTAL DAILY PRN PRN Reason: Constipation Diphenhydramine HCl (Diphenhydramine 50 Mg/Ml Sdv) 25 mg IVPUSH Q6H PRN PRN Reason: Itching Diphenhydramine HCl (Diphenhydramine 25 Mg Cap) 25 mg PO Q6H PRN PRN Reason: Itching Fentanyl (Fentanyl 100 Mcg/Hr Transdermal Patch Pt Own) 100 mcg TRDERM Q72H JARROD Fentanyl (Fentanyl 75 Mcg/Hr Transdermal Patch Pt Own) 75 mcg TRDERM Q72H JARROD Fentanyl (Fentanyl 100 Mcg/Hr Transdermal Patch) 100 mcg TRDERM Q72H [facility] Last Admin: 09/01/20 08:46 Dose: Not Given Documented by: Fentanyl (Fentanyl 100 Mcg/Hr Transdermal Patch) 100 mcg TRDERM Q72H [facility] Last Admin: 08/31/20 15:20 Dose: Not Given Documented by: Fentanyl (Fentanyl 50 Mcg/Hr Transdermal Patch) 100 mcg TRDERM Q72H [facility] Last Admin: 09/03/20 15:58 Dose: 100 mcg Documented by: Fentanyl (Fentanyl 50 Mcg/Hr Transdermal Patch) 100 mcg TRDERM Q72H [facility] Last Admin: 09/04/20 09:47 Dose: 100 mcg Documented by: Fentanyl (Fentanyl 50 Mcg/Hr Transdermal Patch) 50 mcg TRDERM Q72H [facility] Last Admin: 09/06/20 20:14 Dose: Not Given Documented by: Fentanyl (Fentanyl 25 Mcg/Hr Transdermal Patch) 25 mcg TRDERM Q72H [facility] Last Admin: 09/06/20 20:15 Dose: Not Given Documented by: Fentanyl (Fentanyl 50 Mcg/Hr Transdermal Patch) 50 mcg TRDERM Q72H [facility] Last Admin: 09/07/20 14:44 Dose: 50 mcg Documented by: Fentanyl (Fentanyl 25 Mcg/Hr Transdermal Patch) 25 mcg TRDERM Q72H [facility] Last Admin: 09/07/20 14:45 Dose: 25 mcg Documented by: Fentanyl (Fentanyl 50 Mcg/Hr Transdermal Patch) 50 mcg TRDERM Q72H [facility] Fentanyl (Fentanyl 25 Mcg/Hr Transdermal Patch) 25 mcg TRDERM Q72H [facility] Fentanyl (Fentanyl 50 Mcg/Hr Transdermal Patch) 100 mcg TRDERM Q72H [facility] Furosemide (Furosemide 20 Mg Tab Pt Own) 20 mg PO DAILY [facility] Stop: 08/31/20 19:00 Last Admin: 08/31/20 11:25 Dose: 20 mg Documented by: Furosemide (Furosemide 20 Mg Tab) 10 mg PO DAILY [facility] Furosemide (Furosemide 40 Mg Tab) 40 mg PO BIDDIURETIC [facility] Last Admin: 09/03/20 08:50 Dose: Not Given Documented by: Furosemide (Furosemide 40 Mg/4 Ml Vial) 40 mg IVPUSH ONETIME ONE Stop: 08/31/20 13:41 Last Admin: 08/31/20 14:00 Dose: 40 mg Documented by: Furosemide (Furosemide 40 Mg Tab) 40 mg PO DAILY [facility] Last Admin: 09/07/20 08:39 Dose: 40 mg Documented by: Hydromorphone HCl (Hydromorphone 1 Mg/Ml Syringe) 2 mg IVPUSH Q2H PRN PRN Reason: Pain (severe 7-10) Last Admin: 09/07/20 06:48 Dose: 2 mg Documented by: Hydroxyzine HCl (Hydroxyzine Hcl 25 Mg Tab) 25 mg PO TID PRN PRN Reason: itching Last Admin: 09/06/20 21:03 Dose: 25 mg Documented by: Sodium Chloride (Normal Saline) 1,000 mls @ 50 mls/hr IV ASDIRECTED JARROD Last Admin: 08/31/20 11:33 Dose: 75 mls/hr Documented by: Sodium Chloride (Normal Saline) 500 mls @ 50 mls/hr IV ASDIRECTED PRN PRN Reason: REACTION TO BLOOD TRANSFUSION Last Admin: 09/03/20 15:43 Dose: 50 mls/hr Documented by: Ketorolac Tromethamine (Ketorolac 30 Mg/Ml Sdv) 15 mg IVPUSH Q6H PRN PRN Reason: Pain Stop: 09/03/20 17:57 Last Admin: 09/03/20 06:31 Dose: 15 mg Documented by: Ketorolac Tromethamine (Ketorolac 30 Mg/Ml Sdv) 15 - 30 mg IVPUSH Q6H PRN PRN Reason: Pain Stop: 09/03/20 17:57 Last Admin: 09/03/20 15:41 Dose: 30 mg Documented by: Ketorolac Tromethamine (Ketorolac 30 Mg/Ml Sdv) 15 - 30 mg IVPUSH Q6H PRN PRN Reason: Abdominal Pain Stop: 09/08/20 20:34 Last Admin: 09/05/20 14:26 Dose: 30 mg Documented by: Ketorolac Tromethamine (Ketorolac 30 Mg/Ml Sdv) 15 mg IVPUSH Q4H PRN PRN Reason: Abdominal Pain Stop: 09/08/20 20:34 Last Admin: 09/06/20 04:40 Dose: 15 mg Documented by: Ketorolac Tromethamine (Ketorolac 30 Mg/Ml Sdv) 30 mg IVPUSH STAT STA Stop: 09/05/20 22:53 Last Admin: 09/05/20 23:01 Dose: 30 mg Documented by: Ketorolac Tromethamine (Ketorolac 30 Mg/Ml Sdv) 30 mg IVPUSH Q6H [facility] Stop: 09/11/20 08:42 Last Admin: 09/07/20 14:38 Dose: 30 mg Documented by: Lactulose (Lactulose 10 Gm/15 Ml Solution Pt Own) 10 gm PO BID PRN PRN Reason: Constipation Lactulose (Lactulose 10 Gm/15 Ml Solution) 10 gm PO BID PRN PRN Reason: Constipation Last Admin: 09/01/20 19:58 Dose: 10 gm Documented by: Lactulose (Lactulose Soln 10 Gm/15 Ml 30 Ml Ud Cup) 10 gm PO BID [facility] Last Admin: 09/07/20 08:39 Dose: 10 gm Documented by: Loratadine (Loratadine 10 Mg Tab) 10 mg PO DAILY@0900 [facility] Last Admin: 09/02/20 09:28 Dose: Not Given Documented by: Lorazepam (Lorazepam 0.5 Mg Tab) 0.5 mg PO DAILY PRN PRN Reason: Anxiety Last Admin: 09/07/20 00:19 Dose: 0.5 mg Documented by: Lorazepam (Lorazepam 2 Mg/Ml Syringe) 1 mg IVPUSH ONETIME ONE Stop: 09/07/20 08:46 Last Admin: 09/07/20 08:53 Dose: Not Given Documented by: Lorazepam (Lorazepam 2 Mg/Ml Syringe) 1 mg IVPUSH Q6H PRN PRN Reason: Anxiety Last Admin: 09/07/20 09:54 Dose: 1 mg Documented by: Lorazepam (Lorazepam 2 Mg/Ml Syringe) 1 mg IVPUSH Q4H PRN PRN Reason: Anxiety Morphine Sulfate (Morphine 4 Mg/Ml Vial) 4 mg IVPUSH ONETIME ONE Stop: 09/07/20 08:45 Last Admin: 09/07/20 09:07 Dose: 4 mg Documented by: Morphine Sulfate (Morphine Pf 30 Mg/30 Ml Pierogi Maker Vial) 0 mg IV ASDIRECTED PRN; Protocol PRN Reason: Pain Morphine Sulfate (Morphine 4 Mg/Ml Vial) 4 - 6 mg IVPUSH Q2H PRN PRN Reason: Pain Last Admin: 09/07/20 15:27 Dose: 4 mg Documented by: Naloxone HCl (Naloxone 2 Mg/2 Ml Syringe) 0.04 mg IVPUSH Q3M PRN PRN Reason: Respiratory Depression Dronabinol 10 Mg (Capsule Pt Own) 0 mg PO BID@0900,1900 [facility] Last Admin: 09/02/20 09:28 Dose: Not Given Documented by: Ondansetron 8 Mg (Tablet Pt Own*8) 0 mg PO BID@0700,1500 [facility] Last Admin: 08/30/20 15:46 Dose: Not Given Documented by: Acetaminophen/Oxycodone 325-10 Mg Tab Pt Own 0 each PO Q4H [facility] Last Admin: 09/02/20 14:22 Dose: Not Given Documented by: Non-Formulary Medication (Ondansetron) 8 mg PO BID PRN PRN Reason: Nausea Last Admin: 08/31/20 06:14 Dose: 8 mg Documented by: Dronabinol 10mg (Capsule Pt Own) 0 tab PO BID@0900,1900 PRN PRN Reason: Nausea Acetaminophen/Oxycodone 325/10mg Pt Own 0 each PO Q4H PRN PRN Reason: Pain Last Admin: 09/06/20 01:53 Dose: 1 each Documented by: Ondansetron HCl (Ondansetron 4 Mg/2 Ml Sdv) 4 mg IVPUSH Q6H PRN PRN Reason: Nausea Last Admin: 09/07/20 09:07 Dose: 4 mg Documented by: Ondansetron HCl (Ondansetron 4 Mg Tab.Dis) 8 mg PO BID PRN PRN Reason: Nausea Last Admin: 09/06/20 15:34 Dose: 8 mg Documented by: Pantoprazole Sodium (Pantoprazole 40 Mg Vial) 40 mg IVPUSH Q24H [facility] Last Admin: 08/31/20 11:38 Dose: 40 mg Documented by: Pantoprazole Sodium (Pantoprazole 40 Mg Vial) 40 mg IVPUSH Q24H [facility] Last Admin: 09/07/20 08:34 Dose: 40 mg Documented by: Prednisone (Prednisone 5 Mg Tab Pt Own) 5 mg PO DAILY@0900 [facility] Last Admin: 08/31/20 11:40 Dose: 5 mg Documented by: Prednisone (Prednisone 5 Mg Tab) 5 mg PO DAILY@0900 [facility] Last Admin: 09/07/20 08:39 Dose: 5 mg Documented by: Pregabalin (Pregabalin 50 Mg Cap Pt Own*8) 50 mg PO TID [facility] Last Admin: 08/30/20 14:28 Dose: 50 mg Documented by: Pregabalin (Pregabalin 50 Mg Cap) 50 mg PO BID [facility] Last Admin: 08/31/20 11:27 Dose: 50 mg Documented by: Pregabalin (Pregabalin 50 Mg Cap) 50 mg PO BID [facility] Last Admin: 09/07/20 08:39 Dose: 50 mg Documented by: Prochlorperazine Maleate (Prochlorperazine 10 Mg Tab Pt Own*8) 10 mg PO QID PRN PRN Reason: Nausea Prochlorperazine Maleate (Prochlorperazine 10 Mg Tab) 10 mg PO QID PRN PRN Reason: Nausea Senna/Docusate Sodium (Docusate Sodium/Sennosides 50-8.6 Mg Tab) 3 tab PO BID [facility] Last Admin: 09/01/20 19:44 Dose: 3 tab Documented by: Senna/Docusate Sodium (Docusate Sodium/Sennosides 50-8.6 Mg Tab) 1 tab PO DAILY [facility] Last Admin: 09/07/20 08:39 Dose: 1 tab Documented by: Sodium Chloride (Sodium Chloride 0.9% 10 Ml Syringe) 10 ml FLUSH ASDIRECTED PRN PRN Reason: Keep Vein Open - Exam Quality Assessment: Reports: Urine Catheter General: Reports: Alert, Mild Distress, Lethargic Lungs: Reports: Normal Respiratory Effort, Decreased Breath Sounds Cardiovascular: Reports: Regular Rate, Regular Rhythm GI/Abdominal Exam: Soft, No Distention, Tender Extremities: Pedal Edema Skin: Reports: Warm, Dry, Intact Psy/Mental Status: Reports: Alert
== END 2020-09-07 16:51 | disposition swing bed (61) | DRG 861 ==
LOC: CC.ED 15:59 → UNDOADMOB 17:15 → CC.MS 17:15 → OBSVTOIN 08-31 13:29
PROVIDERS: ADMIT Physician Assistant Medical; ATTEND Family Medicine
PROC: 30233N1 Transfusion of Nonautologous Red Blood Cells into Peripheral Vein, Percutaneous Approach (ICD-10-PCS; principal; 2020-09-04)
DX: G89.3 Neoplasm related pain (acute) (chronic) (principal); C34.90 Malignant neoplasm of unspecified part of unspecified bronchus or lung; C79.51 Secondary malignant neoplasm of bone; E83.52 Hypercalcemia; R18.0 Malignant ascites; D63.0 Anemia in neoplastic disease; C78.7 Secondary malignant neoplasm of liver and intrahepatic bile duct; Z66 Do not resuscitate; Z51.5 Encounter for palliative care; Z88.0 Allergy status to penicillin; Z79.52 Long term (current) use of systemic steroids; Z79.899 Other long term (current) drug therapy; Z87.891 Personal history of nicotine dependence; Z90.710 Acquired absence of both cervix and uterus
CPT/HCPCS: 36415; 36430; 76705; 80048; 80053; 82270; 82947; 83735; 85025; 86850; 86900; 86901; 86920; 86922; 96374; 96375; 96376; 99285; A9270-GY; C9113; G0378; J1170; J1885; J1940; J2060; J2270; J2405; J7030; J7040; J7512; P9016

== ENCOUNTER 2020-09-07 16:53 | Inpatient (IN) | payer BC ==
[2020-09-07] MEDS ORDERED: Prochlorperazine 10 MG Tab PO PRN (17:09)
[2020-09-07] MEDS ORDERED: Acetaminophen 325 MG Tab PO PRN (17:09)
[2020-09-07] MEDS ORDERED: diphenhydrAMINE 50 MG/ML SDV IVPUSH PRN (17:09)
[2020-09-07] MEDS ORDERED: DRONABINOL PO PRN (17:09)
[2020-09-07] MEDS ORDERED: Ondansetron 4 MG/2 ML SDV IVPUSH PRN (17:09)
[2020-09-07] MEDS ORDERED: Sodium Chloride 0.9% 10 ML Syringe FLUSH PRN (17:09)
[2020-09-07] MEDS ORDERED: Albuterol 8 GM Inhaler INH PRN (17:09)
[2020-09-07] MEDS: Morphine 4 MG/ML VIAL IVPUSH PRN ×2 (18:49→22:54)
[2020-09-07] MEDS: Lactulose Soln 10 GM/15 ML 30 ML UD Cup PO SCH (19:29)
[2020-09-07] MEDS: Pregabalin 50 MG Cap PO SCH (19:30)
[2020-09-07] MEDS: OXYCODONE PO PRN (19:36)
[2020-09-07] MEDS: APAP PO PRN (19:36)
[2020-09-07] MEDS: Ketorolac 30 MG/ML SDV IVPUSH SCH (20:35)
[2020-09-07] MEDS: LORazepam 2 MG/ML Syringe IVPUSH PRN (23:15)
[2020-09-08] MEDS: Morphine 4 MG/ML VIAL IVPUSH PRN ×9 (02:02→22:58)
[2020-09-08] MEDS: Ketorolac 30 MG/ML SDV IVPUSH SCH ×4 (02:45→20:32)
[2020-09-08] MEDS: LORazepam 2 MG/ML Syringe IVPUSH PRN ×3 (04:13→22:00)
[2020-09-08] MEDS: APAP PO PRN ×2 (04:14→21:59)
[2020-09-08] MEDS: OXYCODONE PO PRN ×2 (04:14→21:59)
[2020-09-08] MEDS: Pantoprazole 40 MG Vial IVPUSH SCH (08:45)
[2020-09-08] MEDS: Lactulose Soln 10 GM/15 ML 30 ML UD Cup PO SCH ×2 (08:50→19:42)
[2020-09-08] MEDS: Pregabalin 50 MG Cap PO SCH ×2 (08:51→19:42)
[2020-09-08] MEDS: Furosemide 40 MG Tab PO SCH (08:51)
[2020-09-08] MEDS: predniSONE 5 MG Tab PO SCH (08:51)
[2020-09-08] MEDS: Bisacodyl 10 MG Supp RECTAL PRN (09:29)
--- NOTE | 2020-09-08 10:57 | PCM.PN ---
- General Info Date of Service: 09/08/20 Functional Status: Reports: Other (Abd pain) - Review of Systems Pulmonary: Reports: No Symptoms Cardiovascular: Reports: No Symptoms Gastrointestinal: Reports: Abdominal Pain, Constipation. Denies: Diarrhea, Nausea, Vomiting - Patient Data Weight - Most Recent: 137 lb I&O - Last 24 Hours: Intake & Output 09/07/20 09/08/20 09/08/20 22:59 06:59 14:59 Intake Total 100 200 Output Total 850 250 Balance -750 -50 Med Orders - Current: Current Medications Acetaminophen (Acetaminophen 325 Mg Tab) 650 mg PO Q4H PRN PRN Reason: Pain Albuterol (Albuterol 8 Gm Inhaler) 0 gm INH Q4H PRN PRN Reason: Shortness of Breath Bisacodyl (Bisacodyl 10 Mg Supp) 10 mg RECTAL DAILY PRN PRN Reason: Constipation Last Admin: 09/08/20 09:29 Dose: 10 mg Documented by: Diphenhydramine HCl (Diphenhydramine 50 Mg/Ml Sdv) 25 mg IVPUSH Q6H PRN PRN Reason: Itching Furosemide (Furosemide 40 Mg Tab) 40 mg PO DAILY JARROD Last Admin: 09/08/20 08:51 Dose: 40 mg Documented by: Ketorolac Tromethamine (Ketorolac 30 Mg/Ml Sdv) 30 mg IVPUSH Q6H JARROD Stop: 09/11/20 08:42 Last Admin: 09/08/20 08:45 Dose: 30 mg Documented by: Lactulose (Lactulose Soln 10 Gm/15 Ml 30 Ml Ud Cup) 10 gm PO BID JARROD Last Admin: 09/08/20 08:50 Dose: 10 gm Documented by: Lorazepam (Lorazepam 2 Mg/Ml Syringe) 1 mg IVPUSH Q4H PRN PRN Reason: Anxiety Last Admin: 09/08/20 04:13 Dose: 1 mg Documented by: Morphine Sulfate (Morphine 4 Mg/Ml Vial) 4 - 6 mg IVPUSH Q2H PRN PRN Reason: Pain Last Admin: 09/08/20 10:37 Dose: 6 mg Documented by: Non-Formulary Medication (Dronabinol [Dronabinol]) 0 tab PO BID@0900,1900 PRN PRN Reason: Nausea Non-Formulary Medication (Non-Formulary Medication 1 Each) 0 each PO Q4H PRN PRN Reason: Pain Last Admin: 09/08/20 04:14 Dose: 1 each Documented by: Ondansetron HCl (Ondansetron 4 Mg/2 Ml Sdv) 4 mg IVPUSH Q6H PRN PRN Reason: Nausea Pantoprazole Sodium (Pantoprazole 40 Mg Vial) 40 mg IVPUSH Q24H [facility] Last Admin: 09/08/20 08:45 Dose: 40 mg Documented by: Prednisone (Prednisone 5 Mg Tab) 5 mg PO DAILY@0900 [facility] Last Admin: 09/08/20 08:51 Dose: 5 mg Documented by: Pregabalin (Pregabalin 50 Mg Cap) 50 mg PO BID [facility] Last Admin: 09/08/20 08:51 Dose: 50 mg Documented by: Prochlorperazine Maleate (Prochlorperazine 10 Mg Tab) 10 mg PO QID PRN PRN Reason: Nausea Senna/Docusate Sodium (Docusate Sodium/Sennosides 50-8.6 Mg Tab) 1 tab PO DAILY [facility] Last Admin: 09/08/20 08:51 Dose: 1 tab Documented by: Sodium Chloride (Sodium Chloride 0.9% 10 Ml Syringe) 10 ml FLUSH ASDIRECTED PRN PRN Reason: Keep Vein Open - Exam Lungs: Clear to Auscultation, Normal Respiratory Effort Cardiovascular: Regular Rate, Regular Rhythm GI/Abdominal Exam: Distended, Tender (mild diffuse), Abnormal Bowel Sounds (hypo). No: Guarding Peripheral Pulses: 2+: Radial (L), Radial (R), Posterior Tibial (L), Posterior Tibial (R) Psy/Mental Status: Alert Sepsis Event Note - Evaluation Sepsis Screening Result: No Definite Risk - Problem List Review Problem List Initiated/Reviewed/Updated: Yes - Plan Plan:: 09/08/20 0945am Patient is end of life comfort care. Patient today is having abdominal pain. Family reports no BM is several days. Patient has medication orders to be given for constipation, RN will give now. Pain is currently controlled at this time.
[2020-09-09] MEDS: Morphine 4 MG/ML VIAL IVPUSH PRN ×12 (00:58→23:34)
[2020-09-09] MEDS: Ketorolac 30 MG/ML SDV IVPUSH SCH ×4 (02:31→20:36)
[2020-09-09] MEDS: Pantoprazole 40 MG Vial IVPUSH SCH (08:08)
[2020-09-09] MEDS: Furosemide 40 MG Tab PO SCH ×2 (08:09→08:21)
[2020-09-09] MEDS: predniSONE 5 MG Tab PO SCH ×2 (08:09→08:21)
[2020-09-09] MEDS: Lactulose Soln 10 GM/15 ML 30 ML UD Cup PO SCH ×2 (08:09→19:27)
[2020-09-09] MEDS: Pregabalin 50 MG Cap PO SCH ×3 (08:09→19:26)
[2020-09-10] MEDS: Morphine 4 MG/ML VIAL IVPUSH PRN ×7 (01:34→15:35)
[2020-09-10] MEDS: Ketorolac 30 MG/ML SDV IVPUSH SCH ×4 (02:55→20:20)
[2020-09-10] MEDS: predniSONE 5 MG Tab PO SCH (09:09)
[2020-09-10] MEDS: Lactulose Soln 10 GM/15 ML 30 ML UD Cup PO SCH ×2 (09:10→19:36)
[2020-09-10] MEDS: Furosemide 40 MG Tab PO SCH (09:10)
[2020-09-10] MEDS: Pregabalin 50 MG Cap PO SCH ×2 (09:10→19:36)
[2020-09-10] MEDS: Pantoprazole 40 MG Vial IVPUSH SCH (09:10)
[2020-09-10] MEDS: Morphine 4 MG/ML VIAL IVPUSH SCH ×2 (18:36→22:09)
[2020-09-11] MEDS: LORazepam 2 MG/ML Syringe IVPUSH PRN ×2 (00:08→23:15)
[2020-09-11] MEDS: Morphine 4 MG/ML VIAL IVPUSH SCH ×6 (02:06→21:52)
[2020-09-11] MEDS: Ketorolac 30 MG/ML SDV IVPUSH SCH ×4 (03:17→23:10)
[2020-09-11] MEDS: Lactulose Soln 10 GM/15 ML 30 ML UD Cup PO SCH ×2 (08:17→19:48)
[2020-09-11] MEDS: Pregabalin 50 MG Cap PO SCH ×2 (08:17→19:48)
[2020-09-11] MEDS: predniSONE 5 MG Tab PO SCH (08:17)
[2020-09-11] MEDS: Furosemide 40 MG Tab PO SCH (08:17)
[2020-09-11] MEDS: Pantoprazole 40 MG Vial IVPUSH SCH (08:17)
[2020-09-11] MEDS: Morphine 2 MG/ML SYRINGE IVPUSH PRN ×3 (10:40→20:04)
[2020-09-11] MEDS: Bisacodyl 10 MG Supp RECTAL PRN (11:14)
[2020-09-12] MEDS: Morphine 4 MG/ML VIAL IVPUSH SCH ×6 (02:22→21:10)
[2020-09-12] MEDS: Ketorolac 30 MG/ML SDV IVPUSH SCH ×4 (05:00→23:38)
[2020-09-12] MEDS: Morphine 2 MG/ML SYRINGE IVPUSH PRN (08:08)
[2020-09-12] MEDS: Lactulose Soln 10 GM/15 ML 30 ML UD Cup PO SCH (08:08)
[2020-09-12] MEDS: Pantoprazole 40 MG Vial IVPUSH SCH (08:08)
[2020-09-12] MEDS: predniSONE 5 MG Tab PO SCH (08:09)
[2020-09-12] MEDS: Furosemide 40 MG Tab PO SCH (08:09)
[2020-09-12] MEDS: Pregabalin 50 MG Cap PO SCH (08:10)
[2020-09-12] MEDS: APAP PO PRN (09:27)
[2020-09-12] MEDS: OXYCODONE PO PRN (09:27)
[2020-09-12] MEDS: LORazepam 2 MG/ML Syringe IVPUSH PRN ×2 (09:27→22:15)
[2020-09-12] MEDS ORDERED: Morphine 4 MG/ML VIAL IVPUSH PRN (14:24)
[2020-09-13] MEDS: Morphine 4 MG/ML VIAL IVPUSH SCH ×6 (02:03→21:13)
[2020-09-13] MEDS: Ketorolac 30 MG/ML SDV IVPUSH SCH ×4 (04:57→23:00)
[2020-09-13] MEDS ORDERED: Pantoprazole 40 MG Vial IVPUSH SCH (08:00)
[2020-09-13] MEDS: Morphine Oral Concentrate 20 MG/ML 30 ML Bottle PO PRN ×5 (08:15→18:45)
[2020-09-13] MEDS: Pantoprazole 40 MG Vial IVPUSH SCH (09:26)
[2020-09-13] MEDS: APAP PO PRN (14:09)
[2020-09-13] MEDS: OXYCODONE PO PRN (14:09)
[2020-09-13] MEDS: LORazepam 2 MG/ML Syringe IVPUSH PRN (23:36)
[2020-09-14] MEDS: Morphine Oral Concentrate 20 MG/ML 30 ML Bottle PO PRN ×4 (00:16→20:35)
[2020-09-14] MEDS: Morphine 4 MG/ML VIAL IVPUSH SCH ×6 (02:53→21:54)
[2020-09-14] MEDS: Ketorolac 30 MG/ML SDV IVPUSH SCH ×4 (05:49→23:01)
[2020-09-14] MEDS: Pantoprazole 40 MG Vial IVPUSH SCH (09:40)
[2020-09-15] MEDS: LORazepam 2 MG/ML Syringe IVPUSH PRN (00:19)
[2020-09-15] MEDS: Morphine 4 MG/ML VIAL IVPUSH SCH ×6 (01:57→21:37)
[2020-09-15] MEDS: Ketorolac 30 MG/ML SDV IVPUSH SCH ×4 (04:59→22:55)
[2020-09-15] MEDS: Morphine Oral Concentrate 20 MG/ML 30 ML Bottle PO PRN ×3 (08:28→19:37)
[2020-09-15] MEDS: Pantoprazole 40 MG Vial IVPUSH SCH (09:50)
[2020-09-16] MEDS: LORazepam 2 MG/ML Syringe IVPUSH PRN (01:01)
[2020-09-16] MEDS: Morphine 4 MG/ML VIAL IVPUSH SCH ×6 (02:11→21:51)
[2020-09-16] MEDS: Ketorolac 30 MG/ML SDV IVPUSH SCH ×4 (05:16→23:16)
[2020-09-16] MEDS: Pantoprazole 40 MG Vial IVPUSH SCH (10:37)
[2020-09-16] MEDS: Morphine Oral Concentrate 20 MG/ML 30 ML Bottle PO PRN ×2 (12:56→16:11)
[2020-09-17] MEDS: LORazepam 2 MG/ML Syringe IVPUSH PRN ×2 (00:32→23:20)
[2020-09-17] MEDS: Morphine 4 MG/ML VIAL IVPUSH SCH ×6 (02:10→22:03)
[2020-09-17] MEDS: Ketorolac 30 MG/ML SDV IVPUSH SCH ×4 (04:56→23:00)
[2020-09-17] MEDS: Pantoprazole 40 MG Vial IVPUSH SCH (10:02)
--- NOTE | 2020-09-17 13:48 | PN ---
DATE: 09/17/2020 S: Mrs. Parks is at end-of-life cares due to her lung cancer. Family are present. A very brief visit was entertained. She appears very comfortable and family are happy with care right now. They do not feel she is having any signs of pain or agitation. We will continue on morphine as prior with harsha Gross. ASSESSMENT: 1. ADVANCED LUNG CANCER. 2. END-OF-LIFE CARES. P: As above. MARY/MIGUEL /[id number]
[2020-09-18] MEDS: Morphine 4 MG/ML VIAL IVPUSH SCH ×6 (02:05→22:01)
[2020-09-18] MEDS: Ketorolac 30 MG/ML SDV IVPUSH SCH ×4 (04:33→23:24)
[2020-09-18] MEDS: Pantoprazole 40 MG Vial IVPUSH SCH (10:14)
[2020-09-18] MEDS: LORazepam 2 MG/ML Syringe IVPUSH PRN (12:02)
[2020-09-19] MEDS: Morphine 4 MG/ML VIAL IVPUSH SCH (01:56)
--- NOTE | 2020-10-08 14:15 | DISCH ---
ADMISSION DIAGNOSES: 1. Advanced lung cancer. 2. Failure to thrive. 3. End-of-life cares. DISCHARGE DIAGNOSIS: 1. ADVANCED LUNG CANCER. 2. FAILURE TO THRIVE. 3. END-OF-LIFE CARES. HISTORY: Mrs. Parks was initially managed in our facility for ongoing weakness, poor intake, and just a general decline. She has known stage IV lung cancer and she had been failing at home with some electrolyte abnormalities, overall dehydration, etc. related to her poor intake. She was managed in Acute Care and ultimately transferred to swing bed for comfort cares. SWING BED COURSE: The patient was managed very effectively on morphine. She did not do well on her fentanyl patch and some of the other oral medications and she seemed to really do much better with just IV morphine. Family was present for her entire swing bed course and were at her bedside. The patient was comfortable and had a peaceful on 09/19/2020. COMPLICATIONS: None. CONSULTATIONS: None. DISPOSITION: home notified. MARY/MIGUEL /[id number]
== END 2020-09-19 05:17 | disposition expired | DRG 862 ==
LOC: CC.MS 17:03
PROVIDERS: ADMIT Physician Assistant Medical; ATTEND Family Medicine
DX: Z51.5 Encounter for palliative care (principal); C34.90 Malignant neoplasm of unspecified part of unspecified bronchus or lung; E83.52 Hypercalcemia; C79.51 Secondary malignant neoplasm of bone; R18.0 Malignant ascites; D63.0 Anemia in neoplastic disease; I82.401 Acute embolism and thrombosis of unspecified deep veins of right lower extremity; M25.511 Pain in right shoulder; Z66 Do not resuscitate; R53.1 Weakness; C78.7 Secondary malignant neoplasm of liver and intrahepatic bile duct; Z79.01 Long term (current) use of anticoagulants; Z79.52 Long term (current) use of systemic steroids; Z79.899 Other long term (current) drug therapy
CPT/HCPCS: 51702; A9270-GY; C9113; J1885; J2060; J2270; J7512